=== PATIENT | male | born 1945 | race Hispanic/Latino ===

== ENCOUNTER 2017-05-27 08:52 | Inpatient (IN) | payer MEDICARE ==
[~2017-05-27] VITALS: Ht 172.7 cm; Wt 85.0 kg
[~2017-05-27 08:52] MED LIST: AMOX TR-K CLV1 EAC2; ASPIR 8181 MG PO; ASPIRIN BUFFER325 MG PO; ASPIRIN ENTERI325 MG PO; FAMOTIDINE20 MG PO; FUROSEMIDE40 MG PO; LEVAQUIN500 MG PO; MUCINEX DM ER1 EACH PO; PARICALCITOL; REQUIP0.5 MG PO; TAMSULOSIN HCL0.4 MG PO; TESSALON PERLE100 MG PO; XYZAL5 MG PO; Z.0.METOPROLOL TART2; Z.0.PRAVASTATIN SOD4 PO; Z.0.TAMSULOSIN HCL0. PO; Z.1.DOXAZOSIN MESYLA PO; ZEMPLAR2 MCG PO
[2017-05-27] MEDS ORDERED: ACETAMINOPHEN 325 MG TAB ONE (09:26)
[2017-05-27] MEDS ORDERED: SODIUM CHLORIDE 0.9% 1000ML 1,000 ML ONE (09:26)
[2017-05-27] MEDS ORDERED: SODIUM CHLORIDE 0.9% 1000ML 1,000 ML IV STA ×2 (09:26→10:51)
[2017-05-27 09:56] LABS: BASOPHILS % 0.3 % (0.0-1.0); EOSINOPHILS % 0.6 % (0.0-6.0); HEMATOCRIT 34.9 % (38.2-49.6); HEMOGLOBIN 12.1 g/dL (14.0-18.0); LYMPHOCYTES # (AUTO) 0.1 (1.0-3.2); LYMPHOCYTES % 4.2 % (18.0-39.1); MEAN CORPUSCULAR HEMOGLOBIN 32.5 pg (28-32); MEAN CORPUSCULAR HGB CONC 34.7 g/dL (31-35); MEAN CORPUSCULAR VOLUME 93.8 fL (81-99); MONOCYTES # (AUTO) 0.1 (0.2-0.8); MONOCYTES % 2.1 % (4.4-11.3); NEUTROPHILS # (AUTO) 3.1 (2.1-6.9); NEUTROPHILS % 92.2 % (38.7-80.0); PLATELET COUNT 87 x10e3/uL (140-360); RED BLOOD COUNT 3.72 x10e6/uL (4.3-5.7); RED CELL DISTRIBUTION WIDTH 12.7 % (11.7-14.4)
[2017-05-27] MEDS ORDERED: ACETAMINOPHEN 325 MG TAB PO ONE (10:00)
[2017-05-27 10:08] LABS: ALBUMIN 2.8 g/dL (3.5-5.0); ALBUMIN/GLOBULIN RATIO 0.8 (0.8-2.0); ANION GAP 17.2 mmol/L (8-16); CALCIUM 8.2 mg/dL (8.4-10.2); CREATININE, SERUM 7.27 mg/dL (0.72-1.25); POTASSIUM 3.2 mmol/L (3.5-5.1)
[2017-05-27 11:15] LABS: CREATINE KINASE MB 2.7 ng/mL (0.00-5.00)
[2017-05-27 11:17] LABS: TROPONIN I 0.359 ng/mL (0-0.300)
--- NOTE | 2017-05-27 11:30 | Diagnostic Imaging Report ---
PROCEDURE: A single AP view of the chest. COMPARISON: Portable chest 09/07/2016. INDICATIONS: COUGH, CONGESTION, FEVER FINDINGS: Lines/tubes: None. Lungs: No focal consolidation. No parenchyma mass. Bibasilar atelectasis. Pleura: There is no pleural effusion or pneumothorax. Heart and mediastinum: The heart and the mediastinum are unremarkable. Bones: No acute bony abnormality. Degenerative changes of the thoracic spine. IMPRESSION: No acute radiographic abnormality. Dictated by: Aman Billingsley M.D. on 05/27/2017 at 11:39 Electronically approved by: Aman Billingsley M.D. on 05/27/2017 at 11:39
[2017-05-27] MEDS ORDERED: SODIUM CHLORIDE 0.9% 500ML 500 ML ONE (13:11)
[2017-05-27] MEDS ORDERED: SODIUM CHLORIDE 0.9% IV STA (13:14)
[2017-05-27] MEDS ORDERED: METRONIDAZOLE 500MG/NS 100ML 100 ML IV STA (14:04)
[2017-05-27 14:19] LABS: CLARITY,URINE SL CLOUDY (CLEAR); COLOR,URINE YELLOW (YELLOW)
[2017-05-27 14:21] LABS: BACTERIA,URINE FEW /HPF
[2017-05-27 14:25] LABS: KETONES,URINE NEGATIVE (NEGATIVE); LEUKOCYTE ESTERASE ,URINE NEGATIVE (NEGATIVE); NITRITE,URINE NEGATIVE (NEGATIVE); URINE UROBILINOGEN 0.2 mg/dL (0.2 - 1)
[2017-05-27 14:26] LABS: BILIRUBIN,URINE 1+ (NEGATIVE); PROTEIN,URINE DIPSTICK 2+ (NEGATIVE); RBC,URINE 0-5 /HPF (0-5)
[2017-05-27] MEDS: SODIUM CHLORIDE 0.9% 1000ML 1,000 ML IV SCH ×2 (15:02→21:29)
[2017-05-27 16:21] VITALS: BP 86/53
[2017-05-27 17:02] VITALS: BP 86/53
[2017-05-27] MEDS ORDERED: SODIUM CHLORIDE 0.9% 50ML 50 ML ONE (17:14)
[2017-05-27] MEDS ORDERED: IOPAMIDOL 370 MG/ML 200 ML INFUS..BTL INJ ONE (17:15)
--- NOTE | 2017-05-27 17:29 | Diagnostic Imaging Report ---
PROCEDURE: CT ABDOMEN AND PELVIS WITH CONTRAST TECHNIQUE: The abdomen and pelvis were scanned utilizing a multidetector helical scanner from the diaphragm to the lesser trochanter after the IV administration of 100 cc of Isovue 370 and the oral administration of water. Coronal and sagittal multiplanar reformations were obtained. COMPARISON: [facility], MRI, MRI MRCP WO, 10/16/2013, 10:41. CT, CT ABDOMEN/PELVIS WO, 10/14/2013, 4:29. INDICATIONS: ABDOMINAL PAIN FINDINGS: LOWER THORAX: Bilateral basal mostly dependent atelectatic changes. Mild cardiomegaly. Atherosclerotic calcification of the coronary arteries. Chronic ununited fracture of the right seventh rib HEPATOBILIARY: Normal hepatic size and contour. Decreased attenuation of the liver compared to the spleen, consistent with steatosis. No focal lesions. Mild central intrahepatic biliary ductal dilation, and mild dilation of the common bile duct, which measures 9 mm at the cristofer hepatis, decreased from previous.. No radiopaque intraluminal filling defects. Cholecystectomy clips SPLEEN: 7 mm hypodense lesion in the inferior tip of the spleen, which is to small to characterize. Mild splenomegaly, measuring 13.6 cm in AP diameter PANCREAS: No focal masses or ductal dilatation. ADRENALS: No adrenal nodules. KIDNEYS/URETERS: No renal or ureteral calculi. No hydronephrosis, hydroureter, or evidence of obstruction. Stable 3-4 mm calcific density likely located in the posterior bladder lumen just past the left UVJ (series 2, image 80). Stable multiple bilateral renal and peripelvic cysts. No solid enhancing lesions. PELVIC ORGANS/BLADDER: Mild circumferential bladder wall thickening, which is partly due to under distention. The prostate is enlarged. PERITONEUM / RETROPERITONEUM: No free air or fluid. LYMPH NODES: No lymphadenopathy. VESSELS: Atherosclerotic calcification of the abdominal aorta and iliac vessels. GI TRACT: No bowel dilation or evidence of obstruction. No pericolonic inflammatory changes. Appendix is well identified and normal in caliber. BONES AND SOFT TISSUES: No aggressive lytic or sclerotic lesions. Soft tissues are unremarkable. IMPRESSION: 1. no acute abdominopelvic abnormalities. 2. Mild central intrahepatic biliary ductal dilation and mild dilation of the common bile duct, which is decreased from prior exam and likely reflects post cholecystectomy status. 3. Stable 3-4 mm calcific density likely located in the posterior bladder lumen just past the left UVJ, likely representing a bladder calculus. No ureteral calculi, hydronephrosis, or obstruction. 4. Hepatic steatosis. No focal lesions. Ld Montiel M.D. Dictated by: Ld Montiel M.D. on 05/27/2017 at 17:37 Electronically approved by: Ld Montiel M.D. on 05/27/2017 at 17:37
[2017-05-27] MEDS ORDERED: POTASSIUM CHLORIDE 20 MEQ TAB CR PO STA (18:32)
[2017-05-27 20:00] VITALS: BP 94/53
[2017-05-27] MEDS ORDERED: MIDODRINE 2.5 MG TAB PO SCH (20:00)
[2017-05-27 23:45] VITALS: BP 91/54
[2017-05-28] VITALS (7 sets, daily range): BP systolic 88–103; BP diastolic 50–56
[2017-05-28] MEDS: SODIUM CHLORIDE 0.9% 1000ML 1,000 ML IV SCH ×2 (01:31→06:04)
[2017-05-28] MEDS: ACETAMINOPHEN 325 MG TAB PO PRN ×2 (02:42→12:38)
[2017-05-28] MEDS: MIDODRINE 2.5 MG TAB PO SCH ×3 (08:41→16:33)
[2017-05-28] MEDS: METRONIDAZOLE 500 MG TAB PO SCH ×2 (14:29→21:14)
--- NOTE | 2017-05-28 15:41 | History and Physical ---
CHIEF COMPLAINT: Abdominal pain, diarrhea. HISTORY OF PRESENT ILLNESS: A 72-year-old male with end-stage renal disease on HD, who reports having significant abdominal pain and diarrhea that began about 4 days ago. Patient reports having loose watery stool but with no blood. He reports that the diarrhea has progressively been getting worse. He also reports having some nausea and vomiting and decreased oral intake. Describes abdominal pain more left-sided, kind of an aching sensation. CT imaging was negative for any acute findings. Patient was seen and evaluated at bedside on the medical floor, currently doing well with no other issues. He still reports have 2 loose bowel movements today but not witnessed by the nursing staff. REVIEW OF SYSTEMS PERTINENT POSITIVE: Diarrhea, abdominal pain, nausea, vomiting, decreased oral intake. PERTINENT NEGATIVE: Denies chest pain, palpitations, dysuria, hematuria, frequency, urgency, lightheadedness, dizziness, headache, shortness of breath, or any other complaints. REST OF 14-POINT REVIEW OF SYSTEMS: Have been reviewed with the patient and are negative. ALLERGIES: NO KNOWN DRUG ALLERGIES. HOME MEDICATIONS 1. Aspirin 325 mg daily. 2. Lasix 80 mg daily. 3. He also takes pravastatin 40 mg daily. 4. Ropinirole 0.5 mg daily. 5. Tamsulosin 0.4 mg every day. PAST MEDICAL HISTORY: BPH, end-stage renal disease on HD, hyperlipidemia. FAMILY HISTORY: Hypertension, diabetes. SURGICAL HISTORY: Reports none. SOCIAL HISTORY: No drugs, no alcohol, does not smoke. VITAL SIGNS: Temperature is 97.4, pulse 69, respiratory rate is 17, his blood pressure is 92/54. He has chronic hypotension, and his pulse ox is 91% on room air. LAB FINDINGS: Show white count of 3.3, hemoglobin 12, hematocrit is 35 and platelets of 87. Sodium 137, potassium 3.2, chloride 96, bicarb 27, anion gap of 17, BUN is 34, creatinine is 7.2, glucose 101, lactic acid was 10 and normal, calcium 8.2. Total bilirubin was 1.3. LFT were normal. Troponin was slightly elevated 0.359. Denies any chest pain. Total protein 6.1, albumin is 2.8. Urinalysis was cloudy in nature. Influenza negative. C. diff toxin was negative. MICROBIOLOGY: Blood and urine cultures no growth to date. IMAGING STUDIES: Chest x-ray was negative. CT abdomen and pelvis found to have no acute abdominopelvic abnormality. He does have a 3 to 4 mm calculus seen in the UV junction, but there is no obstruction at all seen. He does have hepatic steatosis. PHYSICAL EXAMINATION GENERAL: Not in acute distress. Alert, oriented x3, cooperative on exam. HEENT: Head: Normocephalic, atraumatic. Eyes: Pupils equally round and reactive to light bilaterally. Extraocular movements intact bilaterally. Neck was supple with good range of motion. Throat: No evidence of any erythema or exudates in the posterior pharynx. He has poor dentition. PULMONARY: Clear to auscultation bilaterally. No wheezing, no rales, no rhonchi, no crackles appreciated. CARDIOVASCULAR: Positive S1/S2. No murmurs, rubs or gallops appreciated. ABDOMEN: Soft, nondistended, nontender to palpation. Bowel sounds present. MUSCULOSKELETAL: Strength is 5/5 throughout. No evidence of any musculoskeletal deficit on exam. SKIN: Intact, warm to touch. Good cap refill. PSYCHIATRIC: Normal affect and mood. EXTREMITIES: No edema. Good range of motion throughout. ASSESSMENT AND PLAN 1. Diarrhea/abdominal pain/dehydration: C. diff toxin negative, likely has viral gastroenteritis, loperamide or Flagyl and monitor closely. Told the nurse to follow up on his diarrhea if there is any more evidence of it. Continue with IV fluids and pain control. 2. Mild elevation of troponin, likely due to underlying ESRD on HD: Trend troponins x3. He denies any chest pain. EKG shows no acute findings. 3. Hypokalemia: Replace. 4. Chronic hypotension on dialysis: Continue with oral midodrine. 5. Chronic thrombocytopenia, likely due to underlying liver cirrhosis. 6. End-stage renal disease on hemodialysis: Nephrology consulted. Will get dialysis today. 7. Prophylaxis will be heparin. 8. Fluid, electrolytes, nutrients. Hold IV fluids. Encourage oral hydration and renal diet. 9. Disposition: Inpatient, Nephrology consulted. 10. Discharge planning: Patient will likely be here more than 2 midnights, and we will continue to monitor very closely. Patient reports he is very weak and has not eaten much. Job#: [id number] EV
[2017-05-28] MEDS: HEPARIN SOD (PORCINE) 5,000 UNIT/ML VIAL SC SCH (16:33)
[2017-05-28] MEDS ORDERED: SODIUM CHLORIDE 0.9% 1000ML 1,000 ML ONE (16:38)
--- NOTE | 2017-05-28 17:40 | Consultation ---
DATE OF CONSULTATION: May 28, 2017 REQUESTING PHYSICIAN: Dr. Paige. REASON FOR CONSULTATION: Elevated troponin. HISTORY OF PRESENT ILLNESS: Mr. Rosario is a 72-year-old gentleman with past medical history as listed below, who presented with complaints of nausea and diarrhea. He also states that he had some abdominal discomfort. Has end-stage renal disease and is on dialysis. He is currently getting dialysis. He was noted to have elevated troponin so I was consulted. Denies any chest pain or shortness of breath. He reportedly had an IL in 2001 and had a stent placed at that time. He states he feels fine now. REVIEW OF SYSTEMS: CONSTITUTIONAL: Has some fatigue and weakness. HEENT: No headache, blurring of vision, seizures or syncope. CARDIOVASCULAR: No chest pain, dyspnea, orthopnea, PND. RESPIRATORY: No cough, fever or expectoration. GI: Has abdominal pain, vomiting and diarrhea. : No dysuria, frequency or incontinence. ALLERGIES: NO KNOWN DRUG ALLERGIES. MEDICATIONS: See list. PAST MEDICAL HISTORY: History of IL in 2001 and apparently had a stent placed at that time. History of end-stage renal disease on hemodialysis. History of hypertension. SOCIAL HISTORY: Does not smoke or drink. FAMILY HISTORY: Noncontributory. PHYSICAL EXAMINATION: VITALS: Heart rate 69, blood pressure 92/54. Respiratory rate 18. Temperature 97.4. GENERAL: A moderately built and nourished gentleman, alert, oriented not in any obvious distress. HEENT: Atraumatic. NECK: No JVD, bruit, thyromegaly or lymphadenopathy. CHEST: Decreased air entry at the bases. No adventitious sounds appreciated. ABDOMEN: Soft and nontender. CARDIOVASCULAR: First and second heart sounds heard. No murmurs, rubs or gallops appreciated. EXTREMITIES: No edema. LABORATORY DATA: WBC 3.3. Hemoglobin 12.1. Hematocrit 34.9. Platelets are 87,000. Sodium 137, potassium 3.2, chloride 96. Bicarb is 27. BUN is 34. Creatinine 7.2. Glucose is 101. BNP is 240. Troponin is 0.359 and 1.32. EKG shows sinus rhythm at 81 beats per minute. Normal axis. Normal intervals. Q waves V1-V3. Nonspecific ST-T changes. IMPRESSION 1. Gastroenteritis. 2. Elevated troponins -- Non-ST elevation myocardial infarction. 3. End-stage renal disease on hemodialysis. 4. History of hypertension, currently on hypotensive side. 5. Thrombocytopenia. 6. Leukopenia. 7. Hypokalemia. PLAN: 1. Patient's troponins are elevated. However, he has no chest pain or shortness of breath. Get echocardiogram to assess LV function valvular function. 2. Will treat with aspirin, statin, heparin. Since blood pressure is on the lower side, will hold off on beta blockers. 3. Get echocardiogram to assess LV function and valvular function. Discussed with patient about further cardiac workup including cardiac catheterization and probable PCI. The patient does not want any invasive procedures and wants to be treated medically. I discussed my impression and plan of management with the patient and the family. They understand. As always I appreciate and thank you very much for your referrals. Job#: [id number] SAMINA
--- NOTE | 2017-05-28 17:41 | Consultation ---
DATE OF CONSULTATION: May 28, 2017 RENAL CONSULTATION HISTORY OF PRESENT ILLNESS: Patient well known to me, a 72-year-old gentleman with underlying history of end-stage renal disease. Renal consulted for management of kidney failure. He has admitted with apparent chest pain. Cardiology has already been consulted. Has prior history of [place], coronary artery disease status post PCI, history of hypertension, history of secondary hyperparathyroidism. Electrocardiogram shows no acute ST-T wave changes. He is currently awake, alert, scheduled for dialysis, in no apparent respiratory distress. Labs show sodium 137, potassium 3.2, creatinine 7.27. Hemoglobin 12.1. Platelet 87. PHYSICAL EXAMINATION: VITALS: Blood pressure is 92/54, pulse rate 69, afebrile. HEAD AND NECK: Cornea clear. Oral mucosa dry. LUNGS: Bibasilar rales. HEART: S1/S2 audible. ABDOMEN: Otherwise soft, nontender. LOWER EXTREMITY EXAMINATION: No edema. ALLERGIES: NO APPARENT DRUG ALLERGIES. CURRENT MEDICATIONS: Loratadine, midodrine, Flomax, acetaminophen, loperamide, aspirin, metronidazole. CURRENT REVIEW OF SYSTEMS: Positive for diarrhea, nausea. Denies any vomiting. Denies any hematemesis, melena. Denies abdominal pain, fever, chills. IMPRESSION: End-stage renal disease. Appears dehydrated with dry skin, dry mucosa, poor skin turgor. Rales on examination of the lungs, probably atelectasis of the lung bases. Hypokalemic, has diarrhea workup ordered. Seen by Cardiology. Autonomic dysfunction with relatively low blood pressure on midodrine. I will be careful as far as ultrafiltration is concerned. Will only go for about 0 to 1 liter as tolerated. Medications adjusted. Abdominal examination benign. ESTATE ATTORNEY exam intact. Please see orders. Job#: [id number] EV
[2017-05-28] MEDS ORDERED: BENZONATATE 100 MG CAP PO PRN (19:45)
[2017-05-28] MEDS: ATORVASTATIN 20 MG TAB PO SCH (21:14)
[2017-05-28] MEDS: LORATADINE 10 MG TAB PO SCH (21:14)
[2017-05-28] MEDS: HYDROCODONE/CHLORPHENIRAMINE 5 ML LIQCR PO PRN (21:14)
[2017-05-29] VITALS (8 sets, daily range): BP systolic 103–130; BP diastolic 53–74
[2017-05-29] MEDS: METRONIDAZOLE 500 MG TAB PO SCH ×2 (06:21→13:02)
[2017-05-29 07:26] LABS: BASOPHILS % 0.4 % (0.0-1.0); EOSINOPHILS % 0.6 % (0.0-6.0); HEMOGLOBIN 10.9 g/dL (14.0-18.0); LYMPHOCYTES # (AUTO) 0.7 (1.0-3.2); LYMPHOCYTES % 10.5 % (18.0-39.1); MEAN CORPUSCULAR HEMOGLOBIN 32.4 pg (28-32); MEAN CORPUSCULAR HGB CONC 34.1 g/dL (31-35); MEAN CORPUSCULAR VOLUME 95.2 fL (81-99); MONOCYTES # (AUTO) 0.6 (0.2-0.8); NEUTROPHILS # (AUTO) 5.6 (2.1-6.9); NEUTROPHILS % 79.1 % (38.7-80.0); PLATELET COUNT 102 x10e3/uL (140-360); RED BLOOD COUNT 3.36 x10e6/uL (4.3-5.7)
[2017-05-29 07:52] LABS: ANION GAP 14.8 mmol/L (8-16); CALCIUM 7.8 mg/dL (8.4-10.2); CREATININE, SERUM 5.95 mg/dL (0.72-1.25); POTASSIUM 3.8 mmol/L (3.5-5.1)
[2017-05-29 07:59] LABS: TROPONIN I 0.759 ng/mL (0-0.300)
[2017-05-29] MEDS: ASPIRIN 81 MG CHEW TAB PO SCH (08:50)
[2017-05-29] MEDS: ACETAMINOPHEN 325 MG TAB PO PRN ×2 (08:50→15:41)
[2017-05-29] MEDS: TAMSULOSIN HCL 0.4 MG CAP PO SCH (08:50)
[2017-05-29] MEDS: MIDODRINE 2.5 MG TAB PO SCH ×3 (08:50→16:43)
[2017-05-29] MEDS: HEPARIN SOD (PORCINE) 5,000 UNIT/ML VIAL SC SCH ×2 (08:51→21:00)
[2017-05-29] MEDS ORDERED: ASPIRIN 325 MG TAB EC PO SCH (09:00)
[2017-05-29] MEDS: PIPER-TAZ 3.375 GM 100 ML IV SCH (16:58)
[2017-05-29] MEDS: LORATADINE 10 MG TAB PO SCH (20:29)
[2017-05-29] MEDS: ATORVASTATIN 20 MG TAB PO SCH (20:29)
[2017-05-29] MEDS ORDERED: PIPER-TAZ 3.375 GM 100 ML IV SCH (21:00)
[2017-05-29] MEDS: HYDROCODONE/CHLORPHENIRAMINE 5 ML LIQCR PO PRN (23:00)
[2017-05-29] MEDS: LOPERAMIDE HCL 2 MG CAP PO PRN (23:59)
[2017-05-30] VITALS (7 sets, daily range): BP systolic 104–127; BP diastolic 57–61
[2017-05-30] MEDS: ACETAMINOPHEN 325 MG TAB PO PRN ×3 (00:12→20:35)
[2017-05-30] MEDS: PIPER-TAZ 3.375 GM 100 ML IV SCH ×2 (05:41→17:10)
[2017-05-30] MEDS: LOPERAMIDE HCL 2 MG CAP PO PRN (05:42)
[2017-05-30 08:25] LABS: BASOPHILS % 0.3 % (0.0-1.0); EOSINOPHILS # (AUTO) 0.2 (0.0-0.4); EOSINOPHILS % 2.2 % (0.0-6.0); HEMATOCRIT 30.6 % (38.2-49.6); HEMOGLOBIN 10.2 g/dL (14.0-18.0); LYMPHOCYTES # (AUTO) 0.9 (1.0-3.2); MEAN CORPUSCULAR HEMOGLOBIN 31.7 pg (28-32); MEAN CORPUSCULAR HGB CONC 33.3 g/dL (31-35); MONOCYTES # (AUTO) 0.7 (0.2-0.8); MONOCYTES % 9.6 % (4.4-11.3); NEUTROPHILS # (AUTO) 5.8 (2.1-6.9); NEUTROPHILS % 75.2 % (38.7-80.0); PLATELET COUNT 111 x10e3/uL (140-360); RED BLOOD COUNT 3.22 x10e6/uL (4.3-5.7); RED CELL DISTRIBUTION WIDTH 12.7 % (11.7-14.4)
[2017-05-30 08:50] LABS: ANION GAP 13.8 mmol/L (8-16); CALCIUM 7.4 mg/dL (8.4-10.2); CREATININE, SERUM 7.69 mg/dL (0.72-1.25); POTASSIUM 3.8 mmol/L (3.5-5.1)
[2017-05-30] MEDS: ASPIRIN 81 MG CHEW TAB PO SCH (09:30)
[2017-05-30] MEDS: HEPARIN SOD (PORCINE) 5,000 UNIT/ML VIAL SC SCH ×2 (09:30→21:37)
[2017-05-30] MEDS: MIDODRINE 2.5 MG TAB PO SCH ×3 (09:30→17:10)
[2017-05-30] MEDS: TAMSULOSIN HCL 0.4 MG CAP PO SCH (09:30)
[2017-05-30] MEDS: HYDROCODONE/CHLORPHENIRAMINE 5 ML LIQCR PO PRN ×2 (12:36→20:35)
[2017-05-30] MEDS: LORATADINE 10 MG TAB PO SCH (20:35)
[2017-05-30] MEDS: ATORVASTATIN 20 MG TAB PO SCH (20:35)
[2017-05-31] VITALS: BP 108/57
[2017-05-31 04:00] VITALS: BP 113/58
[2017-05-31] MEDS: PIPER-TAZ 3.375 GM 100 ML IV SCH ×2 (05:15→18:14)
[2017-05-31 08:00] VITALS: BP 114/55
[2017-05-31] MEDS: MIDODRINE 2.5 MG TAB PO SCH ×3 (08:00→17:23)
[2017-05-31] MEDS: TAMSULOSIN HCL 0.4 MG CAP PO SCH (09:00)
[2017-05-31] MEDS: ASPIRIN 81 MG CHEW TAB PO SCH (09:00)
[2017-05-31] MEDS: HEPARIN SOD (PORCINE) 5,000 UNIT/ML VIAL SC SCH ×2 (09:00→21:53)
[2017-05-31 12:00] VITALS: BP 129/68
[2017-05-31] MEDS ORDERED: SODIUM CHLORIDE 0.9% 1000ML 2,000 ML ONE (13:27)
[2017-05-31 16:00] VITALS: BP 107/63
[2017-05-31] MEDS: LORATADINE 10 MG TAB PO SCH (21:51)
[2017-05-31] MEDS: ATORVASTATIN 20 MG TAB PO SCH (21:51)
[2017-06-01] MEDS: PIPER-TAZ 3.375 GM 100 ML IV SCH (05:00)
[2017-06-01 08:00] VITALS: BP 113/61
[2017-06-01] MEDS ORDERED: TESSALON PERLE100 MG PO (08:10)
[2017-06-01] MEDS ORDERED: Hydrocodone/Chlorpheniramine PO (08:10)
[2017-06-01] MEDS ORDERED: LISINOPRIL10 MG PO (08:11)
[2017-06-01] MEDS ORDERED: LEVAQUIN500 MG PO (08:19)
[2017-06-01] MEDS ORDERED: FLAGYL500 MG PO (08:38)
[2017-06-01] MEDS: MIDODRINE 2.5 MG TAB PO SCH (08:50)
[2017-06-01] MEDS: TAMSULOSIN HCL 0.4 MG CAP PO SCH (08:50)
[2017-06-01] MEDS: ASPIRIN 81 MG CHEW TAB PO SCH (08:50)
[2017-06-01] MEDS: HEPARIN SOD (PORCINE) 5,000 UNIT/ML VIAL SC SCH (08:52)
--- NOTE | 2017-06-01 08:57 | Discharge Summary ---
PRINCIPAL DIAGNOSES 1. Ppv-NF-lbptfum elevation myocardial infarction. 2. Bladder calculus. 3. Fever of unknown origin. 4. BPH. 5. End-stage renal disease, on hemodialysis. SECONDARY DIAGNOSIS: End-stage renal disease, on hemodialysis. CHIEF COMPLAINT: Abdominal pain and diarrhea. HISTORY OF PRESENT ILLNESS: This is a 72-year-old man with abdominal pain and diarrhea. For further details, please refer to the H and P. HOSPITAL COURSE: Patient was found to have acute gastroenteritis and will go home with Flagyl and Levaquin. Also, had xus-BG-gmribun elevation VT treated with medication regimen. Had bladder calculus and end-stage renal disease, received hemodialysis. BPH was treated with medications. The patient is doing better. Has intermittent periods of low-grade fever. Will transition him home with Flagyl and Levaquin. FOLLOWUP 1. Primary care doctor in 1 week. 2. [employer] in 2 weeks. 3. Nephrology as directed. CONDITION ON DISCHARGE: Stable and improved. DISCHARGE LOCATION: Home. DAYTON FRANKLIN MD Job#: [id number] BATSHEVA
--- NOTE | 2017-06-01 08:59 | Discharge Summary ---
ADDENDUM The patient had echocardiogram with left ventricular ejection fraction of 63% and moderate LVH. Had mild LV diastolic dysfunction and moderate tricuspid regurgitation. DISCHARGE MEDICATIONS: Does include an XUAN inhibitor. DAYTON FRANKLIN MD Job#: [id number] [place]
[2017-06-01] MEDS ORDERED: PIPER-TAZ 3.375 GM 50 ML IV SCH (17:00)
== END 2017-06-01 11:40 | disposition home or self-care (01) | DRG 391 ==
LOC: ER 08:52 → ERHOLD 14:43 → IMCU 15:51 → OBSVTOIN 05-29 14:27 → MED/SURG2 05-29 17:51
PROVIDERS: ADMIT Internal Medicine; ATTEND Internal Medicine
PROC: 5A1D70Z Performance of Urinary Filtration, Intermittent, Less than 6 Hours Per Day (ICD-10-PCS; principal; 2017-05-29)
PROC: 5A1D70Z Performance of Urinary Filtration, Intermittent, Less than 6 Hours Per Day (ICD-10-PCS; 2017-05-31)
DX: A08.4 Viral intestinal infection, unspecified (principal); I21.4 Non-ST elevation (NSTEMI) myocardial infarction; I13.2 Hypertensive heart and chronic kidney disease with heart failure and with stage 5 chronic kidney disease, or end stage renal disease; I95.89 Other hypotension; D69.6 Thrombocytopenia, unspecified; N18.6 End stage renal disease; K74.60 Unspecified cirrhosis of liver; I07.1 Rheumatic tricuspid insufficiency; N25.81 Secondary hyperparathyroidism of renal origin; I25.10 Atherosclerotic heart disease of native coronary artery without angina pectoris; Z95.5 Presence of coronary angioplasty implant and graft; I25.2 Old myocardial infarction; I50.9 Heart failure, unspecified; Z99.2 Dependence on renal dialysis; E86.0 Dehydration; E78.5 Hyperlipidemia, unspecified; E87.6 Hypokalemia; D72.819 Decreased white blood cell count, unspecified; N40.0 Benign prostatic hyperplasia without lower urinary tract symptoms; N21.0 Calculus in bladder; Z79.82 Long term (current) use of aspirin
CPT/HCPCS: 36415; 71010; 74177; 80048; 80053; 81001; 82550; 82553; 83605; 83880; 84484; 85025; 86704; 86706; 87040; 87086; 87340; 87400; 87493; 93005; 93306; 99284; G0378; J1644; J2543; J7030; J7040; Q9967

== ENCOUNTER 2017-06-16 10:56 | Inpatient (IN) | payer MEDICARE ==
[~2017-06-16] VITALS: Ht 172.7 cm; Wt 83.0 kg
[~2017-06-16 10:56] MED LIST changes: +FLAGYL500 MG PO; +Hydrocodone/Chlorpheniramine PO; +LISINOPRIL10 MG PO
[2017-06-16 12:14] LABS: BILIRUBIN,URINE NEGATIVE (NEGATIVE); KETONES,URINE NEGATIVE (NEGATIVE); LEUKOCYTE ESTERASE ,URINE NEGATIVE (NEGATIVE); NITRITE,URINE NEGATIVE (NEGATIVE); URINE UROBILINOGEN 0.2 mg/dL (0.2 - 1)
[2017-06-16 12:15] LABS: BASOPHILS # (AUTO) 0.1 (0.0-0.1); EOSINOPHILS # (AUTO) 0.2 (0.0-0.4); HEMATOCRIT 22.3 % (38.2-49.6); LYMPHOCYTES # (AUTO) 1.1 (1.0-3.2); LYMPHOCYTES % 22.2 % (18.0-39.1); MEAN CORPUSCULAR HEMOGLOBIN 32.1 pg (28-32); MEAN CORPUSCULAR HGB CONC 31.4 g/dL (31-35); MEAN CORPUSCULAR VOLUME 102.3 fL (81-99); MONOCYTES # (AUTO) 0.4 (0.2-0.8); NEUTROPHILS # (AUTO) 3.3 (2.1-6.9); NEUTROPHILS % 64.8 % (38.7-80.0); PLATELET COUNT 199 x10e3/uL (140-360); RED BLOOD COUNT 2.18 x10e6/uL (4.3-5.7)
[2017-06-16 12:20] LABS: CLARITY,URINE SL CLOUDY (CLEAR); COLOR,URINE YELLOW (YELLOW); PROTEIN,URINE DIPSTICK 1+ (NEGATIVE)
--- NOTE | 2017-06-16 12:20 | Diagnostic Imaging Report ---
EXAMINATION: CHEST SINGLE (PORTABLE) INDICATION: \S\sob \[id number] \S\1115 \S\Y COMPARISON: Chest radiograph 09/07/2016 FINDINGS: AP view TUBES and LINES: None. LUNGS: Lungs are well inflated. Lungs are clear. There is no evidence of pneumonia or pulmonary edema. PLEURA: Persistent right basilar pleural thickening/scarring with adjacent prior rib fractures. No pleural effusion or pneumothorax. HEART AND MEDIASTINUM: The cardiomediastinal silhouette is unremarkable. BONES AND SOFT TISSUES: No acute osseous lesion. Soft tissues are unremarkable. UPPER ABDOMEN: No free air under the diaphragm. IMPRESSION: 1. Persistent right basilar pleural thickening/scarring with adjacent prior rib fractures. 2. No focal consolidations. Signed by: DR. Cristopher Lo MD on 06/16/2017 12:16 PM
[2017-06-16 12:25] LABS: ALBUMIN 2.7 g/dL (3.5-5.0); ALBUMIN/GLOBULIN RATIO 0.8 (0.8-2.0); ANION GAP 11.7 mmol/L (8-16); CALCIUM 8.1 mg/dL (8.4-10.2); CREATININE, SERUM 6.97 mg/dL (0.72-1.25); POTASSIUM 3.7 mmol/L (3.5-5.1)
[2017-06-16 12:31] LABS: CREATINE KINASE MB 1.7 ng/mL (0.00-5.00); TROPONIN I 0.014 ng/mL (0-0.300)
[2017-06-16 12:43] LABS: RBC,URINE 0-5 /HPF (0-5)
[2017-06-16] MEDS ORDERED: PANTOPRAZOLE 40 MG 10ML VIAL IV STA (12:59)
[2017-06-16] MEDS ORDERED: PANTOPRAZOLE INJ 40 MG in SODIUM CHLORIDE 0.9% 50ML 50 ML IV STA (12:59)
[2017-06-16] MEDS ORDERED: SODIUM CHLORIDE 0.9% 250ML 250 ML IV ONE (13:00)
[2017-06-16] MEDS ORDERED: PANTOPRAZOLE INJ 80 MG in SODIUM CHLORIDE 0.9% 100 ML IV SCH (13:15)
[2017-06-16] MEDS: PANTOPRAZOLE INJ 40 MG in SODIUM CHLORIDE 0.9% 50ML 50 ML IV SCH ×2 (14:42→14:59)
[2017-06-16] MEDS: SODIUM CHLORIDE FLUSH 10 ML SYR INJ PRN ×3 (14:42→14:59)
[2017-06-16 14:45] LABS: INR 0.94
[2017-06-16 14:46] LABS: PARTIAL THROMBOPLASTIN TIME 28.1 seconds (23.8-35.5)
--- NOTE | 2017-06-16 15:39 | Consultation ---
DATE OF CONSULTATION: June 16, 2017 HISTORY OF PRESENT ILLNESS: The patient is seen in the ER. He is well known to me. He is a 72-year-old gentleman with underlying history of end-stage renal disease, history of anemia, thrombocytopenia, recent bronchopneumonia, who presented with anemia, strongly hem positive and hemoglobin down to 7. He is typed and cross matched for 2 units. He is scheduled for dialysis today. He has prior history of pancreatitis and type-2 diabetes. Had a negative MRCP. History of secondary hyperparathyroidism, anemia of chronic kidney disease and hypertension. ALLERGIES: NO APPARENT DRUG ALLERGIES. CURRENT MEDICATIONS: Pantoprazole IV. LABORATORY TESTS: Hemoglobin 7, white count 7.1 with platelets of 199. Chemistry shows sodium 133, potassium 3.7, creatinine 6.9. BNP 521. SOCIAL HISTORY: Does not smoke or drink. FAMILY HISTORY: Significant for hypertension. PHYSICAL EXAMINATION GENERAL: Awake, alert, lying supine in no apparent distress. VITALS: Blood pressure of 99/54. Pulse rate 83. Afebrile. HEAD AND NECK: Corneas clear. Oral mucosa dry. Neck veins flat. LUNGS: Occasional rales in right and left lower zones. HEART: S1, S2 audible. ABDOMEN: Soft, nontender. LOWER EXTREMITY EXAMINATION: No edema. IMPRESSION AND PLAN: Gastrointestinal bleed. To be seen by GI. To get 2 units of packed RBCs on dialysis. Dialysis nurse called, awaiting arrival. Will not use any heparin. Volume status appears stable. He has got chronic lung changes. Relatively low blood pressure. Will hold off on all blood pressure medications. Please see orders. Job#: [id number]
[2017-06-16] MEDS ORDERED: BENZONATATE 100 MG CAP PO PRN (16:30)
[2017-06-16] MEDS ORDERED: HYDROCODONE/CHLORPHENIRAMINE 5 ML LIQCR PO PRN (16:30)
--- NOTE | 2017-06-16 16:56 | History and Physical ---
CHIEF COMPLAINT: Low blood pressure and black stool. HISTORY OF PRESENT ILLNESS: This is a 72-year-old man recently discharged with Non- ST elevation VT, now developing blood pressure of 84/40 with dizziness and black stool, which is why he came to the hospital. He denies any abdominal pain. Denies any chest pain. PAST MEDICAL HISTORY: Nwz-QS-lzpszvkqb VT, bladder calculus, fever of unknown origin, BPH, end-stage renal disease on hemodialysis, hyperlipidemia. PAST SURGICAL HISTORY: Left arm fistula. FAMILY HISTORY: Hypertension and diabetes in the family. ALLERGIES: PER ELECTRONIC MEDICAL RECORDS. SOCIAL HISTORY: The patient denies any illicits. MEDICATIONS: Per electronic medical records. REVIEW OF SYSTEMS: Denies any chest pain or abdominal pain. PHYSICAL EXAMINATION VITAL SIGNS: Reviewed on admission. The patient's blood pressure was 99/54, now it is 115/66. GENERAL APPEARANCE: A tired-appearing man resting in the bed. HEENT: Anicteric. Pupils responsive to light. No oral lesions. CARDIOVASCULAR: Normal S1 and S2. Regular rate and rhythm. No murmurs audible. ABDOMEN: Soft and nontender. Nondistended. EXTREMITIES: There is no edema or calf tenderness. Some bruits are audible. PSYCHIATRIC: Normal affect. NEUROLOGIC: Alert and oriented x3. Moving all extremities. ASSESSMENT AND PLAN: This is a 72-year-old man. 1. Hypotension. Rehydrated. Blood pressure has improved. Will follow up cultures. 2. Dizziness, related to hypotension. 3. Melena/moderate to severe macrocytic anemia. Will get anemia panel and get blood transfusion. Will continue IV proton pump inhibitor. Receiving IV fluids and GI has been consulted. Will hold aspirin and another other platelet agent or blood thinners. 4. End-stage renal disease on hemodialysis. Nephrology consultation. 5. Hyperlipidemia. Continue statin. 6. Coronary artery disease. Continue statin. Hold the aspirin. 7. Prophylaxis. Will use SCDs and proton pump inhibitor. DISPOSITION: Follow GI recommendation. Continue to monitor blood pressure. Job#: [id number]
--- NOTE | 2017-06-16 16:56 | Consultation ---
DATE OF CONSULTATION: June 16, 2017 GASTROENTEROLOGY CONSULTATION ADMITTING PHYSICIAN: Ephraim Newton MD. REASON FOR CONSULT: Three-point drop in hemoglobin with recent melena. HISTORY OF PRESENTING ILLNESS: A 72-year-old Lebanese-speaking male. I derived the history through a generation technician. He went for dialysis today. In the dialysis unit, he was noted to be quite hypotensive with a systolic blood pressure in 90s and he also complained about some associated weakness and lightheadedness. Blood work was done that showed a hemoglobin of 7.0. About a month ago, his hemoglobin was 10.7. Prior to that, his hemoglobin was around 12. On further questioning, patient stated that for the last few days he noticed that his stools were a dark color. He is on aspirin. He does not take any other qvfu-kuy-qasoeeu NSAIDs. No prior history of peptic ulcer disease. Denies any associated abdominal pain. He has had a colonoscopy approximately 4 to 5 years ago. As per patient, colonoscopy was reported normal. He has no family history of any colon cancer. Patient never had any upper endoscopy. He has no chronic liver disorder. No history of any coagulopathy or any bleeding disorder. REVIEW OF SYSTEMS: A 12-point system reviewed. Positive pertinent symptoms as per HPI. PAST MEDICAL HISTORY: Hypertension, end-stage renal disease on hemodialysis 3 times a week, benign prostatic hypertrophy, seasonal allergies, prior history of pancreatitis. PAST SURGICAL HISTORY: Left arm AV graft, colonoscopy. FAMILY HISTORY: Noncontributory. SOCIAL HISTORY: No history of smoking, alcohol or any illicit drug use. ALLERGIES: NONE. HOME MEDICATION: Aspirin, benzonatate, furosemide 40 mg daily, levocetirizine, lisinopril, pravastatin, ropinirole, tamsulosin. Patient was treated with some antibiotic, levofloxacin and metronidazole, recently. PHYSICAL EXAMINATION VITAL SIGNS: Temperature 97.5, pulse 83, respiration 16, blood pressure varying from 99/54 to 115/66, oxygen saturation 97% on room air. GENERAL: Not in any acute distress. HEENT: Moist mucous membrane. Anicteric sclerae. Gross pallor present. CVS: S1/S2 regular with a 2/6 flow murmur. LUNGS: Bilaterally grossly clear. ABDOMEN: Soft, nondistended, nontender. No palpable mass. No hernia. Positive bowel sounds. EXTREMITIES: Warm. No leg edema. AV graft in the left upper arm. LAB: WBC 5.0, hemoglobin 7, hematocrit 22.3, MCV 102.3, platelet count 119. His hemoglobin was 10.2 on May 30, 2017. Prior to that, hemoglobin was recorded 12.1 on May 27, 2017. Sodium 133, potassium 3.7, chloride 95, bicarb 30, BUN 33, creatinine 6.97, glucose 101. Liver test normal. PT 13.0, INR 0.94. Urine negative. Chest x-ray: (1) Persistent right basilar pleural thickening/scarring with adjacent prior rib fracture. (2) No focal consolidation. IMPRESSION: Symptomatic anemia in the background of melena, almost 3-point drop in hemoglobin in about a week. This is definitely concerning for upper GI bleeding with significant blood loss. I do not think patient is having any active GI bleeding at this time. PLAN: Clear-liquid diet. Change IV Protonix infusion to IV b.i.d. No NSAIDs. Monitor his stool. Monitor hemoglobin, transfuse as necessary. Do not transfuse blood above hemoglobin 7. Will keep him n.p.o. past midnight. Upper endoscopy tomorrow. If upper endoscopy is negative, then patient will need a colonoscopy, which can be done day after tomorrow. I thank Dr. Newton for allowing me to participate in the care of this patient. Job#: [id number] REBECCA
[2017-06-16] MEDS: PANTOPRAZOLE 40 MG 10ML VIAL IV SCH (17:00)
[2017-06-16] MEDS ORDERED: SODIUM CHLORIDE 0.9% 1000ML 2,000 ML ONE (17:05)
[2017-06-16] MEDS ORDERED: ALBUMIN HUMAN 50 ML IV PRN (17:15)
[2017-06-16] MEDS ORDERED: MANNITOL 25% 12.5GM/50 ML VIAL IV PRN (17:15)
[2017-06-16] MEDS ORDERED: SODIUM CHLORIDE 0.9% 1000ML 1,000 ML IV PRN (17:15)
[2017-06-16] MEDS ORDERED: HEPARIN SOD (PORCINE) 1000 UNIT/ML SDV IV PRN (17:15)
[2017-06-16 17:16] VITALS: BP 115/67
[2017-06-16 17:35] VITALS: BP 115/67
[2017-06-16 17:38] VITALS: BP 115/67
[2017-06-16] MEDS ORDERED: SODIUM CHLORIDE 0.9% 250ML 250 ML ONE (18:31)
[2017-06-16 20:00] VITALS: BP 93/56
[2017-06-16 20:22] LABS: CREATINE KINASE MB 1.5 ng/mL (0.00-5.00); TROPONIN I 0.013 ng/mL (0-0.300)
[2017-06-16] MEDS: LORATADINE 10 MG TAB PO SCH (20:36)
[2017-06-16] MEDS: TAMSULOSIN HCL 0.4 MG CAP PO SCH (23:30)
[2017-06-17] VITALS (8 sets, daily range): BP systolic 90–147; BP diastolic 51–57
[2017-06-17 01:28] LABS: HEMOGLOBIN 7.6 g/dL (14.0-18.0)
[2017-06-17 01:29] LABS: HEMATOCRIT 22.7 % (38.2-49.6)
[2017-06-17 01:43] LABS: CREATINE KINASE MB 1.5 ng/mL (0.00-5.00); TROPONIN I 0.005 ng/mL (0-0.300)
[2017-06-17 06:29] LABS: BASOPHILS # (AUTO) 0.1 (0.0-0.1); BASOPHILS % 1.3 % (0.0-1.0); EOSINOPHILS # (AUTO) 0.3 (0.0-0.4); EOSINOPHILS % 6.2 % (0.0-6.0); LYMPHOCYTES % 21.1 % (18.0-39.1); MEAN CORPUSCULAR HEMOGLOBIN 31.7 pg (28-32); MEAN CORPUSCULAR HGB CONC 32.4 g/dL (31-35); MONOCYTES # (AUTO) 0.5 (0.2-0.8); MONOCYTES % 9.8 % (4.4-11.3); NEUTROPHILS # (AUTO) 2.9 (2.1-6.9); NEUTROPHILS % 60.7 % (38.7-80.0); PLATELET COUNT 169 x10e3/uL (140-360); RED BLOOD COUNT 2.24 x10e6/uL (4.3-5.7); RED CELL DISTRIBUTION WIDTH 16.1 % (11.7-14.4)
[2017-06-17 06:34] LABS: HEMATOCRIT 21.9 % (38.2-49.6); HEMOGLOBIN 7.1 g/dL (14.0-18.0); MEAN CORPUSCULAR VOLUME 97.8 fL (81-99)
[2017-06-17 06:47] LABS: ANION GAP 11.6 mmol/L (8-16); CALCIUM 7.8 mg/dL (8.4-10.2); CREATININE, SERUM 4.49 mg/dL (0.72-1.25); POTASSIUM 4.6 mmol/L (3.5-5.1)
[2017-06-17] MEDS: PANTOPRAZOLE 40 MG 10ML VIAL IV SCH ×2 (07:27→16:06)
[2017-06-17] MEDS ORDERED: EPINEPHRINE HCL INJ 1 MG/ML AMP ONE (07:32)
[2017-06-17] MEDS ORDERED: TAMSULOSIN HCL 0.4 MG CAP PO SCH (09:00)
[2017-06-17] MEDS: ROPINIROLE HCL 1 MG TAB PO SCH (09:52)
[2017-06-17] MEDS: TAMSULOSIN HCL 0.4 MG CAP PO SCH (09:52)
[2017-06-17] MEDS: SUCRALFATE 1 GM/10 ML SUSP NG SCH ×3 (11:45→20:46)
[2017-06-17] MEDS ORDERED: PHENYLEPHRINE HCL 1% 10 MG/ML VIAL ONE (17:06)
[2017-06-17] MEDS ORDERED: PROPOFOL IV EMULSION 10 MG/ML 20 ML VIAL ONE (17:06)
[2017-06-17] MEDS ORDERED: EPHEDRINE SULFATE INJ 50 MG/10 ML SYR ONE (17:06)
[2017-06-17] MEDS ORDERED: LIDOCAINE HCL 2% LOCAL INJ 5 ML SDV VIAL INJ ONE (17:06)
[2017-06-17] MEDS ORDERED: FENTANYL CITRATE/PF 100MCG/2 ML INJ ONE (17:14)
--- NOTE | 2017-06-17 17:21 | Progress Note ---
DATE: June 17, 2017 MEDICINE PROGRESS NOTE TIME OF SERVICE: 4:15 p.m. SUBJECTIVE: Overnight patient underwent EGD. REVIEW OF SYSTEMS: Denies any dizziness, chest pain. VITAL SIGNS: Reviewed. PHYSICAL EXAMINATION GENERAL APPEARANCE: A tired-appearing man resting in bed. HEENT: Anicteric. CARDIOVASCULAR: Normal S1/S2. LUNGS: Moderate breath sounds. ABDOMEN: Soft, nontender, nondistended. EXTREMITIES: No edema. SKIN: Dry. PSYCHIATRIC: Flat affect. LABS: Reviewed. MEDICATIONS: Reviewed. ASSESSMENT: A 72-year-old man. 1. Hypotension, fluids. 2. Dizziness. 3. Melena/moderate to severe microcytic anemia. 4. End-stage renal disease on hemodialysis. 5. Hyperlipidemia. 6. Coronary artery disease. PLAN 1. No transfusion provided. Patient's hemoglobin more than 7. Will continue to follow her labs. Will follow up in the morning. 2. Report of bleeding ulcers seen on EGD. Awaiting final report. 3. Continue IV PPI b.i.d. and sucralfate. 4. SCDs but he prefers . 5. Follow up final reports and obtain anemia panel. Job#: [id number] EV
[2017-06-17 17:22] LABS: FERRITIN 690.84 ng/mL (21.81-274.66); THYROID STIMULATING HORMONE 3.456 uIU/mL (0.350-4.940)
[2017-06-17] MEDS: SIMVASTATIN 20 MG TAB PO SCH (20:46)
[2017-06-17] MEDS: LORATADINE 10 MG TAB PO SCH (20:46)
[2017-06-18] VITALS (8 sets, daily range): BP systolic 90–120; BP diastolic 44–68
[2017-06-18 06:32] LABS: HEMATOCRIT 22.2 % (38.2-49.6); HEMOGLOBIN 7.1 g/dL (14.0-18.0)
[2017-06-18] MEDS: SUCRALFATE 1 GM/10 ML SUSP NG SCH ×4 (07:30→21:00)
[2017-06-18] MEDS: PANTOPRAZOLE 40 MG 10ML VIAL IV SCH ×2 (09:00→21:00)
[2017-06-18] MEDS: TAMSULOSIN HCL 0.4 MG CAP PO SCH (09:00)
[2017-06-18] MEDS: ROPINIROLE HCL 1 MG TAB PO SCH (09:00)
--- NOTE | 2017-06-18 09:28 | Progress Note ---
DATE: June 18, 2017 TIME: 8:51 a.m. OVERNIGHT: No events. REVIEW OF SYSTEMS: Denies any dizziness or chest pain. PHYSICAL EXAMINATION VITAL SIGNS: Reviewed. GENERAL: A tired-appearing man resting in bed. HEENT: Anicteric. CARDIOVASCULAR: Normal S1 and S2. LUNGS: Moderate breath sounds. ABDOMEN: Soft, nontender and nondistended. EXTREMITIES: No edema. SKIN: Dry. PSYCHIATRIC: Normal affect. LABS: Reviewed. MEDICATIONS: Reviewed. ASSESSMENT: A 72-year-old man with: 1. Hypotension. 2. Dizziness. 3. Melena/duodenal ulcer. 4. Moderate to severe microcytic anemia. 5. End-stage renal disease, on hemodialysis. 6. Hyperlipidemia. 7. Coronary artery disease. PLAN 1. The patient's hemoglobin is still 7.1. He will benefit from 2 units of packed red blood cells. Will consult GI before it will be given. It will be given during dialysis. 2. End-stage renal disease. Dialysis per nephrology. 3. Continue IV PPI b.i.d. and sucralfate. 4. Continue to follow up blood counts. 5. Discharge planning. Job#: [id number] BATSHEVA
[2017-06-18] MEDS ORDERED: SODIUM CHLORIDE 0.9% 250ML 250 ML IV ONE (10:00)
[2017-06-18] MEDS ORDERED: FUROSEMIDE INJ 10 MG/ML 2 ML VIAL IV ONE ×2 (13:00→20:00)
[2017-06-18] MEDS ORDERED: SODIUM CHLORIDE 0.9% 250ML 250 ML ONE (13:49)
--- NOTE | 2017-06-18 16:01 | Progress Note ---
DATE: June 18, 2017 NEPHROLOGY PROGRESS NOTE Feels okay. He is feeling stronger. Denies any hematemesis. PHYSICAL EXAMINATION GENERAL: Laying in bed. VITALS: Temperature 36.9, pulse 78, blood pressure 94/60. HEENT: Atraumatic. NECK: No JVD. CHEST: Clear. EXTREMITIES: Trace edema. ABDOMEN: Benign. Hemoglobin 7. Potassium is 4.6, creatinine 4.4, serum CO2 31. Iron stores adequate. ASSESSMENT 1. End-stage renal disease: Satisfactory electrolytes. Minimal edema now. 2. Anemia presumed from blood loss. PLAN: Hemodialysis today. Bleeding hopefully has stopped, but will transfuse as he remains anemic. This may help with blood pressure. Please see orders for details. Plan another 4-hour run with 3 L fluid removal, 2 potassium bath. Transfusion on dialysis. Blood flow rate 400 mL per minute. Dialysate fluid 700 mL per minute, F160 filter. Thank you for allowing us to participate in Mr. Rosario's care. Job#: [id number] [place]
[2017-06-18] MEDS: LORATADINE 10 MG TAB PO SCH (21:00)
[2017-06-18] MEDS: SIMVASTATIN 20 MG TAB PO SCH (21:00)
[2017-06-19] VITALS: BP 125/64
[2017-06-19 04:00] VITALS: BP 100/57
[2017-06-19 05:58] LABS: BASOPHILS % 0.6 % (0.0-1.0); EOSINOPHILS # (AUTO) 0.4 (0.0-0.4); EOSINOPHILS % 6.7 % (0.0-6.0); HEMATOCRIT 28.6 % (38.2-49.6); HEMOGLOBIN 9.5 g/dL (14.0-18.0); LYMPHOCYTES # (AUTO) 1.5 (1.0-3.2); LYMPHOCYTES % 26.9 % (18.0-39.1); MEAN CORPUSCULAR HGB CONC 33.2 g/dL (31-35); MEAN CORPUSCULAR VOLUME 93.5 fL (81-99); MONOCYTES # (AUTO) 0.5 (0.2-0.8); MONOCYTES % 8.3 % (4.4-11.3); NEUTROPHILS # (AUTO) 3.1 (2.1-6.9); NEUTROPHILS % 57.1 % (38.7-80.0); PLATELET COUNT 125 x10e3/uL (140-360); RED BLOOD COUNT 3.06 x10e6/uL (4.3-5.7); RED CELL DISTRIBUTION WIDTH 16.7 % (11.7-14.4)
[2017-06-19] MEDS ORDERED: SUCRALFATE1 G/10 ML NG (06:53)
[2017-06-19] MEDS ORDERED: PANTOPRAZOLE SO40 MG PO (06:53)
[2017-06-19] MEDS ORDERED: FLOMAX0.4 MG PO (06:53)
[2017-06-19 07:40] VITALS: BP 113/62
--- NOTE | 2017-06-19 08:34 | Discharge Summary ---
PRINCIPAL DIAGNOSES 1. Hypotension. 2. Dizziness. 3. Melena secondary to duodenal ulcer. 4. Moderate to severe microcytic anemia requiring 3 units of packed red blood cell transfusion. 5. End-stage renal disease, on hemodialysis. 6. Hyperlipidemia. SECONDARY DIAGNOSES 1. Coronary artery disease. 2. End-stage renal disease. CHIEF COMPLAINT: Low blood pressure and black stool. HISTORY OF PRESENT ILLNESS: A 72-year-old man developing low blood pressure and black stool. For further details, refer to the H and P. HOSPITAL COURSE: The patient was hypotensive. He had dizziness and melena. Endoscopy showed duodenal ulcer. He received blood transfusion of 2 units. He had moderate to severe microcytic anemia and end-stage renal disease. The patient received dialysis. He had been receiving dialysis here. The patient doing better. Hemoglobin has improved. Hemoglobin went from 7.1 to 9.5. The patient is currently appropriate for discharge. Will follow up. DISCHARGE MEDICATIONS: Per electronic medical records and includes sucralfate and Protonix. CONDITION ON DISCHARGE: Stable and improving. DISCHARGE LOCATION: Home. FOLLOWUP: Primary care doctor in 1 week. Follow up with metal sprayer machined parts in 2 weeks. Follow up with wood and wood products factory worker as directed. DAYTON FRANKLIN MD Job#: [id number] [place]
[2017-06-19] MEDS: SUCRALFATE 1 GM/10 ML SUSP NG SCH (08:36)
[2017-06-19] MEDS: TAMSULOSIN HCL 0.4 MG CAP PO SCH (08:36)
[2017-06-19] MEDS: ROPINIROLE HCL 1 MG TAB PO SCH (08:36)
[2017-06-19] MEDS: PANTOPRAZOLE 40 MG 10ML VIAL IV SCH (08:36)
--- NOTE | 2017-06-19 10:01 | Progress Note ---
DATE: June 18, 2017 GASTROENTEROLOGY PROGRESS NOTE SUBJECTIVE: Patient reports no abdominal pain. Tolerating oral feeds. Regular BM. Soft brown stool. REVIEW OF SYSTEMS GENERAL: No fever or chills. RESPIRATORY: No cough or expectoration. CV: No chest pain or palpitations. MEDICATIONS: Reviewed as per MAR. He is gettin. Pantoprazole 40 mg IV b.i.d. 2. Sucralfate suspension 1 g q.i.d. and at night. 3. Other medications. PHYSICAL EXAMINATION VITAL SIGNS: Temperature 96.5, pulse 68, respirations 18, blood pressure 110/63, and oxygen saturation 96% on room air. GENERAL: Not in any acute distress. HEENT: Moist mucous membranes. Anicteric sclerae. NECK: No neck or axillary adenopathy. CV: S1 and S2 regular. LUNGS: Bilaterally grossly clear. ABDOMEN: Soft. Mild epigastric tenderness on deep palpation. No rebound, rigidity or guarding. Positive bowel sounds. EXTREMITIES: Warm. No leg edema. LABS: WBC 4.7, hemoglobin 7.1, hematocrit 21.9, and platelet count 169,000. Electrolytes done yesterday showed sodium 141, potassium 4.6, chloride 103, bicarb 31, BUN 20, creatinine 4.49. IMPRESSION 1. Acute blood loss anemia with hem-positive stool: Upper endoscopy done yesterday showed small crater ulcer in the duodenum with stigmata of bleeding. Therefore, it was treated with epinephrine injection, as well as Endoclips deployed. 2. End-stage renal disease, on hemodialysis. PLAN: We can switch PPI to oral b.i.d. No NSAIDs. Continue sucralfate suspension for about a week. Hemoglobin remains stable. Transfuse as necessary. 3. Gastric biopsies were done, and results pending. Patient can be discharged from the GI standpoint. He should follow up with me in the office in 2 weeks. Job#: [id number] BATSHEVA BARNETT
== END 2017-06-19 11:00 | disposition home or self-care (01) | DRG 329 ==
LOC: ER 10:56 → ERHOLD 14:40 → MED/SURG 16:21
PROVIDERS: ADMIT Internal Medicine; ATTEND Internal Medicine
PROC: 30233N1 Transfusion of Nonautologous Red Blood Cells into Peripheral Vein, Percutaneous Approach (ICD-10-PCS; principal; 2017-06-16)
PROC: 5A1D70Z Performance of Urinary Filtration, Intermittent, Less than 6 Hours Per Day (ICD-10-PCS; 2017-06-16)
PROC: 0DB68ZX Excision of Stomach, Via Natural or Artificial Opening Endoscopic, Diagnostic (ICD-10-PCS; 2017-06-17)
PROC: 3E0 Administration, Physiological Systems and Anatomical Regions, Introduction (ICD-10-PCS; 2017-06-17)
PROC: 0DL98DZ Occlusion of Duodenum with Intraluminal Device, Via Natural or Artificial Opening Endoscopic (ICD-10-PCS; 2017-06-17 08:15)
PROC: 0DB78ZX Excision of Stomach, Pylorus, Via Natural or Artificial Opening Endoscopic, Diagnostic (ICD-10-PCS; 2017-06-17 08:15)
DX: K26.0 Acute duodenal ulcer with hemorrhage (principal); N18.6 End stage renal disease; I12.0 Hypertensive chronic kidney disease with stage 5 chronic kidney disease or end stage renal disease; D63.1 Anemia in chronic kidney disease; D62 Acute posthemorrhagic anemia; N25.81 Secondary hyperparathyroidism of renal origin; Z99.2 Dependence on renal dialysis; I25.10 Atherosclerotic heart disease of native coronary artery without angina pectoris; K29.70 Gastritis, unspecified, without bleeding; K44.9 Diaphragmatic hernia without obstruction or gangrene; K21.0 Gastro-esophageal reflux disease with esophagitis
CPT/HCPCS: 36415; 36430; 43235; 43239; 71045; 80048; 80053; 81001; 82550; 82553; 82607; 82728; 82948; 83540; 83880; 84443; 84466; 84484; 85014; 85018; 85025; 85610; 85730; 86850; 86900; 86920; 87340; 88305; 88312; 90962; 93005; 99284; J0171; J2001; J2370; J7030; J7050; P9016

== ENCOUNTER 2018-12-13 08:41 | Outpatient (RCR) | payer MEDICARE ==
[~2018-12-13 08:41] MED LIST changes: +FLOMAX0.4 MG PO; +PANTOPRAZOLE SO40 MG PO; +SUCRALFATE1 G/10 ML NG
== END 2018-12-28 ==
LOC: PT 08:41
PROVIDERS: ATTEND Specialist
DX: M17.12 Unilateral primary osteoarthritis, left knee (principal); M62.81 Muscle weakness (generalized); M25.562 Pain in left knee; M25.662 Stiffness of left knee, not elsewhere classified; R26.2 Difficulty in walking, not elsewhere classified

== ENCOUNTER 2019-10-08 20:52 | Inpatient (IN) | payer MEDICARE, OTHER ==
[~2019-10-08] VITALS: Ht 172.7 cm; Wt 83.0 kg
[2019-10-08] MEDS ORDERED: SODIUM CHLORIDE 0.9% 1000ML 1,000 ML IV STA ×2 (20:56→22:16)
[2019-10-08 21:29] LABS: BASOPHILS % 0.4 % (0.0-1.0); EOSINOPHILS % 0.4 % (0.0-6.0); HEMATOCRIT 38.7 % (38.2-49.6); HEMOGLOBIN 12.5 g/dL (14.0-18.0); LYMPHOCYTES # (AUTO) 0.8 (1.0-3.2); LYMPHOCYTES % 11.1 % (18.0-39.1); MEAN CORPUSCULAR HEMOGLOBIN 29.9 pg (28-32); MEAN CORPUSCULAR HGB CONC 32.3 g/dL (31-35); MEAN CORPUSCULAR VOLUME 92.6 fL (81-99); MONOCYTES # (AUTO) 0.4 (0.2-0.8); NEUTROPHILS # (AUTO) 5.6 (2.1-6.9); NEUTROPHILS % 80.5 % (38.7-80.0); PLATELET COUNT 104 x10e3/uL (140-360); RED BLOOD COUNT 4.18 x10e6/uL (4.3-5.7); RED CELL DISTRIBUTION WIDTH 14.4 % (11.7-14.4)
[2019-10-08] MEDS ORDERED: MIDODRINE HCL5 MG PO (21:31)
[2019-10-08] MEDS ORDERED: NAPROXEN250 MG PO (21:31)
[2019-10-08] MEDS ORDERED: HYDROXYZINE PAM25 MG PO (21:31)
[2019-10-08] MEDS ORDERED: FAMOTIDINE20 MG PO (21:31)
[2019-10-08 21:44] LABS: ALBUMIN 2.4 g/dL (3.5-5.0); ALBUMIN/GLOBULIN RATIO 0.7 (0.8-2.0); ANION GAP 21.8 mmol/L (8-16); CALCIUM 8.4 mg/dL (8.4-10.2); CREATININE, SERUM 8.28 mg/dL (0.72-1.25); POTASSIUM 4.8 mmol/L (3.5-5.1)
[2019-10-08 21:51] LABS: CREATINE KINASE MB 2.5 ng/mL (0-5.0)
--- NOTE | 2019-10-08 22:16 | NUR ---
INFORMED DR. HARRELL OF PT CURRENT HEMODYNAMICS, RECEIVED ORDERS FOR ADDITIONAL LITER OF NS WIDE OPEN, WILL GIVE TO PT AND CONTINUE TO MONITOR.
[2019-10-08] MEDS ORDERED: IOPAMIDOL 370 MG/ML 200 ML INFUS..BTL INJ ONE (22:25)
[2019-10-08] MEDS ORDERED: SODIUM CHLORIDE 0.9% 50ML 50 ML ONE (22:26)
[2019-10-08] MEDS ORDERED: SODIUM CHLORIDE 0.9% 500ML 500 ML IV STA (23:48)
--- NOTE | 2019-10-09 | NUR ---
DR. HARRELL ORDERED TO GIVE ANOTHER 500 CC OF NS WIDE OPEN FOR BP MANAGEMENT, STATES BENEFITS OUTWEIGH RISKS, PT IN NAD, BREATHING E/U, BREATH SOUNDS NORMAL; DOES STATE TO BE FEELING BETTER, BUT BP REMAINS LOW WITH MILD IMPROVEMENT TRENDING UP; WILL PROVIDE MEDICATION AND WILL CONTINUE TO MONITOR.
--- NOTE | 2019-10-09 00:25 | Diagnostic Imaging Report ---
EXAM: CT Abdomen and Pelvis WITH contrast INDICATION: Abdominal pain, nausea, vomiting, diarrhea COMPARISON: Abdominal CT 05/27/2017 TECHNIQUE: Abdomen and pelvis were scanned utilizing a multidetector helical scanner from the lung base to the pubic symphysis after administration of IV contrast. Coronal and sagittal reformations were obtained. Routine protocol was performed. Scan was performed when during portal venous phase. IV CONTRAST: 100 mL of Isovue 370 ORAL CONTRAST: None COMPLICATIONS: None RADIATION DOSE: Total DLP: 531 mGy*cm Estimated effective dose: (DLP x 0.015 x size factor) mSv CTDIvol has been reviewed. It is below the limits set by the Radiation Protocol Committee (RPC). Dose modulation, iterative reconstruction, and/or weight based adjustment of the mA/kV was utilized to reduce the radiation dose to as low as reasonably achievable. FINDINGS: LINES and TUBES: None. LOWER THORAX: Subendocardial fat deposition in the left ventricular apex is the sequelae of remote cardiac infarction. Mild cardio negative.. Hyperdensities in the coronary arteries. A 7 mm subpleural nodule in the basolateral right lower lobe. HEPATOBILIARY: No focal hepatic lesions. No biliary ductal dilation. GALLBLADDER: There are cholecystectomy clips. SPLEEN: Mild splenomegaly. PANCREAS: The main pancreatic duct within the pancreatic head is mildly dilated, 5 mm in diameter. No obvious mass. ADRENALS: No adrenal nodules KIDNEYS/URETERS: Kidneys enhance symmetrically. Several simple appearing bilateral renal cysts. No hydronephrosis. No stones. GI TRACT: No abnormal distention, wall thickening, or evidence of bowel obstruction. Several fluid-filled loops of nondilated small bowel, and liquid stool in throughout most of the colon. Appendix is normal. PELVIC ORGANS/BLADDER: Mild prostatomegaly. Urinary bladder under distended with circumferential urinary bladder wall thickening, correlate for cystitis. LYMPH NODES: No lymphadenopathy. VESSELS: The main portal vein is mildly dilated, 1.9 cm in diameter. Extensive arterial atherosclerosis in the abdomen, with possible flow-limiting stenosis at the superior mesenteric artery due to calcific atherosclerotic plaque. PERITONEUM / RETROPERITONEUM: No free air or fluid. BONES: Degenerative changes. SOFT TISSUES: Unremarkable. IMPRESSION: 1. Findings can seen with enterocolitis. 2. Mild cardiomegaly and coronary artery disease, with evidence of remote left ventricular apical myocardial infarction. 3. Extensive arterial atherosclerosis in the abdomen, with possible flow-limiting stenosis at the superior mesenteric artery due to calcific atherosclerotic plaque. 4. Mild prostatomegaly. Urinary bladder under distended with circumferential urinary bladder wall thickening, correlate for cystitis. 5. Mild main pancreatic duct dilation without obvious mass. Recommend follow-up abdominal CT with contrast in 6 months, pancreas mass protocol. 6. Mild splenomegaly. Signed by: Felix Ulloa DO on 10/09/2019 12:21 AM
[2019-10-09] MEDS: PIPER-TAZ 3.375 GM 50 ML IV SCH ×2 (01:20→10:16)
[2019-10-09] MEDS: SODIUM CHLORIDE 0.9% 1000ML 1,000 ML IV SCH ×3 (01:20→18:27)
[2019-10-09] MEDS ORDERED: SODIUM CHLORIDE 0.9% 1000ML 1,000 ML IV STA (01:52)
--- NOTE | 2019-10-09 02:36 | NUR ---
DR. HARRELL AT BEDSIDE EXPLAINING CURRENT HEMODYNAMIC STATUS AND NEED FOR CENTRAL LINE PLACEMENT FOR TREATMENT, ED MD EXPLAINED RISKS, BENEFITS, AND ALTERNATIVE TREATMENTS, PT VERBALIZED UNDERSTANDING, GIVEN OPPORTUNITY FOR QUESTIONS, ADDRESSED CONCERNS; INFORMED CONSENT WITNESSED AND PLACED ON CHART AT THIS TIME.
--- NOTE | 2019-10-09 03:30 | NUR ---
CENTRAL LINE PLACED BY DR. HARRELL ED PHYSICIAN TO RT FEMORAL, PER PHYSICIAN OKAY TO USE FOR LABS/MEDS, STATES DOES NOT WANT TO START VASOPRESSORS AT THIS TIME, WILL ORDER IF BP DROPS MORE; WILL CONTINUE TO MONITOR PT AND UPDATE PHYSICIAN ON STATUS NEEDED.
--- NOTE | 2019-10-09 05:22 | NUR ---
INFORMED ED MD OF CURRENT BP WITH MAP <60, VERBAL ORDERS TO START LEVOPHED @ 5 MCG/MIN AT THIS TIME.
[2019-10-09] MEDS ORDERED: NOREPINEPHRINE 8 MG/D5W 250 ML 250 ML ONE (05:28)
[2019-10-09] MEDS: NOREPINEPHRINE INJ 4MG/4ML 8 MG in DEXTROSE 5% 250ML 250 ML IV SCH (05:28)
--- NOTE | 2019-10-09 05:28 | NUR ---
PATIENT STARTED ON LEVOPHED DRIP AT THIS TIME @5 MCG/MIN PER ED MD ORDERS, WILL CONTINUE TO MONITOR PT.
--- NOTE | 2019-10-09 05:38 | NUR ---
AM LABS AND REPEAT CARDIACS COLLECTED AND SENT TO LAB FOR ANALYSIS.
[2019-10-09 06:20] LABS: CREATINE KINASE MB 2.4 ng/mL (0-5.0)
--- NOTE | 2019-10-09 07:11 | NUR ---
REPORT GIVEN TO ROBLES GRULLON.
[2019-10-09] MEDS ORDERED: HYDRALAZINE HCL 20 MG/ML VIAL IV PRN (12:15)
[2019-10-09] MEDS ORDERED: ACETAMINOPHEN 325 MG TAB PO PRN (12:15)
--- NOTE | 2019-10-09 14:34 | Consultation ---
DATE OF CONSULTATION: Pulmonary Critical Care Consultation CHIEF COMPLAINT: Vomiting and diarrhea in a patient with end-stage renal disease. HISTORY OF PRESENT ILLNESS: The patient is a 74-year-old man. He has a history of end-stage renal disease and has been on dialysis for 3 years. Yesterday, he ate some shrimp that seems intolerable. He started to have some vomiting and diarrhea. He is continued to have some diarrhea and vomiting. He also notes abdominal pain. He denies any fever or chills. The patient is not complaining of cough or trouble breathing. PAST MEDICAL HISTORY: 1. Myocardial infarction in 2001. 2. End-stage renal disease. 3. Hypertension. PAST SURGICAL HISTORY: 1. Status post angioplasty and stent in 2001. 2. No prior abdominal surgeries. SOCIAL HISTORY: The patient does not drink alcohol. He is not an active smoker. ALLERGIES: NO KNOWN DRUG ALLERGIES. REVIEW OF SYSTEMS: The patient is afebrile. He is not complaining of headache or neck pain. He has no chest pain. He is not complaining of difficulty breathing or cough. He does have some abdominal distention. He has no rebound. He does have some vomiting and diarrhea. He denies any leg edema. PHYSICAL EXAMINATION: VITAL SIGNS: The patient is afebrile. The blood pressure is 108/53 and the pulse is 94. The respiratory rate is 18. Saturation is 98%. HEENT: Shows no facial swelling or erythema. CARDIAC: Reveals regular rate and rhythm with normal S1 and S2. LUNGS: Auscultation of lungs reveals decreased breath sounds at the bases. There is no wheezing. ABDOMEN: Soft. There is some mild distention. There is no rebound or guarding. EXTREMITIES: Shows no leg edema or calf tenderness. There is no cyanosis or clubbing. SKIN: Shows no rashes. NEUROLOGICAL: Shows no focal abnormalities. LABORATORY DATA: BUN to creatinine ratio is 56 to 8.28. Other electrolytes are within normal limits. White blood cell count is 6.9 and the hemoglobin is 12.5. The platelet count is 104. RADIOGRAPHIC DATA: CT scan of the abdomen and pelvis shows findings consistent with enterocolitis. The patient also has an enlarged prostate and some dilatation in his pancreatic duct. IMPRESSION: 1. Acute gastroenteritis. 2. Hypovolemia and hypertension. 3. End-stage renal disease. 4. History of coronary artery disease. PLAN: 1. IV hydration. 2. Stool studies for enterocolitis. 3. Infectious Disease consultation. 4. The patient is scheduled for dialysis today. The patient's regular dental cream maker, Dr. Hernandez is consulted. MD SHO Arguelles/YOBANY /[id number]
[2019-10-09] MEDS ORDERED: ROPINIROLE HCL 5 MG PO SCH (15:00)
[2019-10-09] MEDS ORDERED: CEFEPIME HCL 1 GM VIAL IV SCH (15:30)
[2019-10-09] MEDS: ROPINIROLE HCL 2 MG TAB PO SCH ×2 (15:35→22:29)
[2019-10-09] MEDS: METRONIDAZOLE 500MG/NS 100ML 100 ML IV SCH (15:37)
[2019-10-09] MEDS: MIDODRINE HCL 5 MG TABLET PO SCH ×2 (15:40→18:25)
--- NOTE | 2019-10-09 16:16 | NUR ---
Levophed titrated down to 4 mcg. Will asses to see if patients blood pressure remains stable.
[2019-10-09 16:26] LABS: CLARITY,URINE SL CLOUDY (CLEAR); COLOR,URINE AMBER (YELLOW)
[2019-10-09 16:27] LABS: BILIRUBIN,URINE SMALL (NEGATIVE); KETONES,URINE NEGATIVE (NEGATIVE); LEUKOCYTE ESTERASE ,URINE NEGATIVE (NEGATIVE); NITRITE,URINE NEGATIVE (NEGATIVE); PROTEIN,URINE DIPSTICK >=300 (NEGATIVE); URINE UROBILINOGEN 0.2 mg/dL (0.2 - 1)
[2019-10-09] MEDS: CEFEPIME 1GM/NS 0.9% 50 ML 50 ML IV SCH (16:49)
[2019-10-09 16:53] LABS: BACTERIA,URINE MODERATE /HPF; RBC,URINE 21-50 /HPF (0-5); WBC,URINE (MAN) 0-5 /HPF (0-5)
[2019-10-09] MEDS ORDERED: FAMOTIDINE 20 MG TAB PO SCH (17:00)
--- NOTE | 2019-10-09 17:42 | NUR ---
Levophed titrated to 3mcg. Current bp 116/60.
[2019-10-09] MEDS: VANCOMYCIN 250MG/5ML ORAL SOLN PO SCH (18:24)
[2019-10-09] MEDS: TAMSULOSIN HCL 0.4 MG CAP PO SCH (18:26)
--- NOTE | 2019-10-09 18:26 | NUR ---
Patient levophed titrated to 1 mcg abd blood pressure decreased to 99/60 map still above 60.
[2019-10-09] MEDS: FAMOTIDINE 20 MG/2 ML VIAL IV SCH (18:27)
--- NOTE | 2019-10-09 18:35 | NUR ---
Patient levophed increased to 3mcg. Pressure increased to 107/57. map greater than 60.
--- NOTE | 2019-10-09 18:50 | Consultation ---
DATE OF CONSULTATION: REASON FOR CONSULTATION: Colitis. HISTORY OF PRESENT ILLNESS: Mr. Rosario, who is a 74-year-old male, who has history of end-stage renal disease on hemodialysis for the last 3 years, history of hypertension, history of atherosclerotic disease, coronary artery disease, myocardial infarction in 2001, status post angioplasty and stent placement 2001. The patient comes in with abdominal pain, nausea, diarrhea, not feeling well. The patient came to the emergency room and he is going to be admitted. The patient denies any other history or complaints at present time. He came to the emergency room. His white count was 6.96, hemoglobin 12.5, and hematocrit is 38. COVID-19 was ordered, still pending. Sodium 135, potassium 4.8, and creatinine 8.8. The patient, who had CAT scan of abdomen and pelvis showed enterocolitis, cardiomegaly. MEDICATIONS: The patient is currently on norepinephrine, metronidazole, and Zosyn. The patient denies any other complaints except abdominal pain and discomfort. He denies any other problems. No recent hospitalization. PAST MEDICAL HISTORY: As above. PAST SURGICAL HISTORY: As above. ALLERGIES: NKA. SOCIAL HISTORY: Denies smoking, drug abuse, or alcohol abuse. FAMILY HISTORY: Hypertension. REVIEW OF SYSTEMS: As mentioned above he denies any. PHYSICAL EXAMINATION: GENERAL: Alert and oriented. Does not seem to be in acute distress. VITAL SIGNS: Stable, afebrile. HEENT: He is not icteric. NECK: Supple. CHEST: Clear. HEART: S1 and S2. No S3, S4, or murmur. ABDOMEN: Soft. Bowel sounds present. Diffuse discomfort with mild tenderness. EXTREMITIES: No edema. SKIN: No rash. IMPRESSION: 1. Enterocolitis, concerning Clostridium difficile versus ischemic. 2. End-stage renal disease. 3. Hypertension, atherosclerotic disease. RECOMMENDATIONS: N.p.o., NG to intermittent suction, Flagyl 500 IV q.8, cefepime 1 g daily, vancomycin 250 mg p.o. q.8. Obtain stools for Clostridium difficile. Serial KUB, serial CBC. Further recommendations to follow. MD KEYONA [place]/MODL /[id number]
--- NOTE | 2019-10-09 18:59 | NUR ---
report given to Prashanth STAHL
--- NOTE | 2019-10-09 19:35 | Progress Note ---
DATE: 10/09/2019 Dialysis Note SUBJECTIVE: The patient is awake and alert. OBJECTIVE: VITAL SIGNS: Resting blood pressure 108/53, pulse is 77, afebrile. HEAD AND NECK: Cornea clear. Mucosa moist. LUNGS: Bibasilar rales. HEART: S1 and S2 audible. ABDOMEN: Soft and nontender. EXTREMITIES: Lower extremity, no edema. LABORATORY DATA: Noted. Sodium 140, potassium 3, bicarb 35, and calcium 2.5. Blood flow 400, dialysate 800, UF as tolerated. IMPRESSION: End-stage renal disease, dialysis. Ursula Lucas MD SAK/MODL /[id number]
--- NOTE | 2019-10-09 20:05 | NUR ---
dialysis nurse at bedside preparing to start pt on dialysis
[2019-10-09] MEDS ORDERED: NON-FORMULARY MEDICATION (Pravastatin Sodium 40 MG) PO SCH (21:00)
[2019-10-09] MEDS ORDERED: PIPER-TAZ 3.375 GM 50 ML IV SCH (21:00)
--- NOTE | 2019-10-09 21:00 | NUR ---
pt currently on dialysis. po bedtime medications held at this time per hd nurse
[2019-10-09] MEDS: PRAVASTATIN 20 MG TAB PO SCH (22:29)
[2019-10-10] VITALS (15 sets, daily range): BP systolic 88–118; BP diastolic 53–70
--- NOTE | 2019-10-10 00:05 | NUR ---
dialysis nurse states that hd completed. 2 liters off per hd nurse. antibiotics administered per orders at this time.
[2019-10-10] MEDS: METRONIDAZOLE 500MG/NS 100ML 100 ML IV SCH ×4 (00:06→22:28)
[2019-10-10] MEDS: VANCOMYCIN 250MG/5ML ORAL SOLN PO SCH ×4 (00:10→17:15)
--- NOTE | 2019-10-10 01:00 | NUR ---
bp 112/60, levophed decreased to 2.5 mcg/kg/min.
[2019-10-10 02:28] LABS: CREATINE KINASE MB 2.5 ng/mL (0-5.0)
[2019-10-10] MEDS: NOREPINEPHRINE INJ 4MG/4ML 8 MG in DEXTROSE 5% 250ML 250 ML IV SCH (05:29)
[2019-10-10 05:48] LABS: BASOPHILS % 0.5 % (0.0-1.0); EOSINOPHILS # (AUTO) 0.2 (0.0-0.4); EOSINOPHILS % 2.3 % (0.0-6.0); HEMATOCRIT 32.8 % (38.2-49.6); HEMOGLOBIN 10.8 g/dL (14.0-18.0); LYMPHOCYTES # (AUTO) 0.5 (1.0-3.2); LYMPHOCYTES % 7.9 % (18.0-39.1); MEAN CORPUSCULAR HEMOGLOBIN 29.7 pg (28-32); MEAN CORPUSCULAR HGB CONC 32.9 g/dL (31-35); MEAN CORPUSCULAR VOLUME 90.1 fL (81-99); MONOCYTES # (AUTO) 0.3 (0.2-0.8); MONOCYTES % 4.9 % (4.4-11.3); NEUTROPHILS # (AUTO) 5.4 (2.1-6.9); NEUTROPHILS % 83.9 % (38.7-80.0); PLATELET COUNT 83 x10e3/uL (140-360); RED BLOOD COUNT 3.64 x10e6/uL (4.3-5.7); RED CELL DISTRIBUTION WIDTH 14.2 % (11.7-14.4)
[2019-10-10 05:56] LABS: ALBUMIN 1.9 g/dL (3.5-5.0); ALBUMIN/GLOBULIN RATIO 0.6 (0.8-2.0); CALCIUM 7.8 mg/dL (8.4-10.2); CREATININE, SERUM 5.37 mg/dL (0.72-1.25); MAGNESIUM 1.5 MG/DL (1.3-2.1)
[2019-10-10] MEDS ORDERED: DEXTROSE 50% SYRINGE 50 ML IV ONE (06:08)
[2019-10-10 06:16] LABS: THYROID STIMULATING HORMONE 1.511 uIU/mL (0.350-4.940)
[2019-10-10] MEDS: TAMSULOSIN HCL 0.4 MG CAP PO SCH ×2 (07:32→16:02)
[2019-10-10] MEDS: FAMOTIDINE 20 MG/2 ML VIAL IV SCH ×2 (07:32→16:02)
[2019-10-10] MEDS: MIDODRINE HCL 5 MG TABLET PO SCH ×3 (07:32→17:14)
[2019-10-10] MEDS: ROPINIROLE HCL 2 MG TAB PO SCH ×3 (07:32→21:00)
[2019-10-10 08:34] LABS: PLATELET ESTIMATE MODERATELY DECREASED
[2019-10-10 11:02] LABS: EOSINOPHILS % (MANUAL) 2 % (0-7); LYMPHOCYTES % (MANUAL) 8 % (19-48); MONOCYTES % (MANUAL) 5 % (3.4-9.0); NEUTROPHILS % (MANUAL) 85 % (40-74)
--- NOTE | 2019-10-10 12:08 | Progress Note ---
DATE: SUBJECTIVE: The patient is seen and evaluated in the emergency room. Available labs and notes reviewed. Discussed with the patient. Discussed with Dr. Aguilar. REVIEW OF SYSTEMS: Still with diarrhea, but abdominal pain has improved. No nausea, vomiting, fever, chills, chest pain, or shortness of breath. PHYSICAL EXAMINATION: VITAL SIGNS: Temperature 98.1, pulse 83, respirations 16, and blood pressure 100/54. GENERAL: Alert and oriented, comfortable in bed, no acute distress. CV: S1 and S2. CHEST: Equal expansion. Clear to auscultation. ABDOMEN: Soft. No tender, has some discomfort. Positive bowel sounds. HEENT: Moist. No pallor. No JVD. EXTREMITIES: Weak. No cyanosis. MEDICATIONS: Medication list reviewed and as far as Infectious Disease point of view, the patient is on cefepime, Flagyl IV, and vancomycin p.o. LABORATORY STUDIES: White count 6.47, hemoglobin 10.8, and platelets 83 lower compared with 2 days ago. Sodium 136, potassium 4, and creatinine 5.37. Lipase 7 on 10/08/2019, AST 21, and ALT 12. Serology, coronavirus PCR is pending. Hepatitis panel is pending. MICROBIOLOGY: Blood culture negative 24 hours. RADIOLOGY STUDIES: CT of abdomen and pelvis, suggestive of enterocolitis. CTA of the abdomen and pelvis pending. ASSESSMENT AND PLAN: 1. Enterocolitis. 2. Concern Clostridium difficile versus ischemia. Follow with CT of abdomen and pelvis. 3. End-stage renal disease. 4. Hypertension. 5. Atherosclerotic disease. 6. Obesity. 7. Continue with antibiotics. As mentioned above, follow with CTA of the abdomen and pelvis. Clinically feels better. Monitor the patient clinically. Follow up with the labs. Discussed with Dr. Aguilar in details. Please refer to chart for more information. Dictated by Nathaniel Stevens PA-C (Al) Kyree Aguilar MD /MODL /[id number]
--- NOTE | 2019-10-10 12:24 | Diagnostic Imaging Report ---
CTA of the abdomen and pelvis. History: Abdominal pain, SMA stenosis. Comparison: CT abdomen/pelvis with contrast from 10/08/2019. Technique: Multidetector CT scanning of the abdomen and pelvis was performed from the level of the lung bases to the inferior pubic rami before and after after the administration of intravenous contrast material according to the CTA protocol. Coronal sagittal reformats were obtained. RADIATION DOSE: Total DLP: 1418.21 mGy*cm Dose modulation, iterative reconstruction, and/or weight based adjustment of the mA/kV was utilized to reduce the radiation dose to as low as reasonably achievable. FINDINGS: Vascular: There is extensive atherosclerotic plaquing of the abdominal aorta and branch vessels. The abdominal aorta is normal in course and caliber without evidence for aneurysmal dilatation. Maximal AP diameter is are 2.5 cm at the diaphragmatic hiatus, 2.4 cm at the super mesenteric segment, 2.2 cm at the mesenteric segment, 2.0 cm at the renal segment, 1.8 cm infrarenal segment, and 1.8 cm proximal to the bifurcation. Small amount of posterior crescentic mural thrombus noted within the distal abdominal aorta above the bifurcation. The origin of the celiac artery is patent. The common hepatic, splenic, and left gastric arteries are patent without significant stenosis or other abnormality. The SMA is patent with prominent atherosclerotic plaquing at its origin resulting in approximately 50-70% luminal narrowing. The remaining SMA and branch vessels are widely patent. The bilateral renal arteries are patent with atherosclerotic plaquing noted at the origin of the right renal artery resulting in approximately 50% luminal narrowing. The NATHANAEL is patent without significant stenosis. The bilateral common iliac arteries and external iliac, and internal iliac arteries are patent without hemodynamically significant stenosis. Nonvascular: 7 mm subpleural nodule again identified within the right lower lobe. There is bibasilar atelectasis/scarring. The liver is normal in size and attenuation without evidence for focal abnormality. The gallbladder is surgically absent. There is no biliary ductal dilatation. The stomach, spleen, pancreas, and bilateral adrenal glands are unremarkable. Mild prominence of the pancreatic duct again noted. The kidneys are normal in location. Multiple nonenhancing exophytic lesions are identified bilaterally likely reflecting cysts. There is no evidence for hydronephrosis. No ureteral stone or dilatation is appreciated. Circumferential wall thickening again noted of the urinary bladder which may reflect underdistention. A cystitis could have a similar appearance. 5 mm calcification versus stone is identified within the urinary bladder distal to the left ureterovesical junction. The prostate is enlarged. The IVC is unremarkable. Please note evaluation the bowel is limited without the use of enteric contrast material. Again noted are upper normal caliber, fluid-filled loops of small bowel within the abdomen and pelvis. There is abnormal wall thickening, possible small foci of extraluminal air and adjacent inflammatory change identified along a loop of small bowel within the mid abdomen (axial image 62). There is no evidence for high-grade bowel obstruction. There is no ascites. No abnormally enlarged lymph nodes are identified within the abdomen or pelvis. The osseous structures demonstrate stable degenerative changes without evidence for acute fracture or destructive process. IMPRESSION: 1. Extensive abdominal aortic atherosclerosis. The celiac axis, SMA, bilateral renal arteries, and NATHANAEL remain patent. Atherosclerotic plaquing at the origin of the SMA results in approximately 50-70% luminal narrowing. The more distal aspects of the SMA and branch vessels are widely patent. 2. Again identified are findings that can be seen with enterocolitis. Additionally, abnormal wall thickening, adjacent inflammatory change, and suspected foci of extraluminal air identified adjacent to a loop of small bowel within the mid abdomen which may reflect a contained perforation. 3. Additional stable findings as detailed above and not significantly changed from the recent prior examination from 10/08/2019. Signed by: Dr. Amaury Davis MD on 10/10/2019 12:21 PM
[2019-10-10] MEDS ORDERED: IOPAMIDOL 370 MG/ML 200 ML INFUS..BTL INJ ONE (14:39)
[2019-10-10] MEDS ORDERED: SODIUM CHLORIDE 0.9% 100 ML ONE (14:39)
[2019-10-10] MEDS: CEFEPIME 1GM/NS 0.9% 50 ML 50 ML IV SCH (14:57)
[2019-10-10] MEDS ORDERED: GUAIFENESIN/CODEINE 10 ML CUP PO PRN (15:45)
[2019-10-10] MEDS ORDERED: DEXTROSE 5%/0.45% SOD CHL 1,000 ML IV ONE (17:45)
--- NOTE | 2019-10-10 17:50 | Consultation ---
DATE OF CONSULTATION: 10/09/2019 HISTORY OF PRESENT ILLNESS: 74 years of age, underlying history of diabetes, end-organ damage with diabetic kidney disease on dialysis Wednesday, Wednesday, Wednesday, history of prior cholecystectomy, hypertension, anemia, chronic kidney disease, presented with nausea, vomiting, and diarrhea. He had a CT done which showed possibility of anterior colitis. He has mild splenomegaly as well. He is otherwise lying supine, in no apparent respiratory distress. Denies any shortness of breath, nausea. Has a white count of 6.9, hemoglobin 12.5. Chemistry shows sodium 135, potassium 4.8, creatinine 8.2, and BNP 779. Total bilirubin 1. LFTs relatively normal range. Lipase 7. Albumin 2.4. PAST MEDICAL HISTORY: As above plus history of duodenal ulcer, GI bleed, hyperlipidemia, coronary artery disease. SOCIAL HISTORY: Does not smoke or drink. FAMILY HISTORY: End-stage renal disease in his plus history of diabetes. ALLERGIES: NO APPARENT DRUG ALLERGIES. HOME MEDICATIONS: Not reconciled yet, but has been on: 1. Furosemide 40 mg daily. 2. Hydroxyzine p.r.n. 3. Midodrine 10 mg p.o. t.i.d. 4. Pravastatin. 5. Requip 0.5 mg tablets three times a day. 6. Flomax. The patient has been given some empiric antibiotics in the emergency room in the form of piperacillin/tazobactam for his enterocolitis. He has been currently receiving normal saline bolus. He is also on Tylenol p.r.n.. His piperacillin/tazobactam is q.6, I will change to q.12 of 3.375 g. PHYSICAL EXAMINATION: GENERAL: He is awake, alert, oriented x3, lying supine, in no apparent distress. VITAL SIGNS: Blood pressure is 108/53, pulse rate 94, afebrile. HEAD AND NECK: Cornea clear. Oral mucosa moist. LUNGS: Relatively clear. HEART: S1, S2 audible. ABDOMEN: Soft, nontender. LOWER EXTREMITIES: No edema. IMPRESSION AND PLAN: End-stage renal disease, was hypotensive earlier. Agree with saline challenge and resuscitation of volume, underlying diarrhea, enterocolitis. I will send stool for Clostridium difficile. Piperacillin/tazobactam dose has been adjusted. Consider starting Flagyl. I will arrange for dialysis. MD FARZANEH Campos/YOBANY /[id number]
--- NOTE | 2019-10-10 18:35 | Progress Note ---
DATE: SUBJECTIVE: The patient is feeling better. He is having less nausea, vomiting, and diarrhea. His Levophed has weaned off. PHYSICAL EXAMINATION: VITAL SIGNS: The blood pressure is 99/70 and saturation is 95%. HEENT: Shows no facial swelling or erythema. CARDIAC: Reveals regular rate and rhythm with normal S1 and S2. LUNGS: Auscultation of lungs reveals clear breath sounds bilaterally. There is no wheezing. ABDOMEN: Soft and nontender. There is no rebound or guarding. EXTREMITIES: Shows no leg edema or calf tenderness. There is no cyanosis or clubbing. SKIN: Shows no rashes. LABORATORY DATA: White blood cell count is 6.47 and the hemoglobin is 10.8. The platelet count is 83. IMPRESSION: 1. Viral gastroenteritis. 2. End-stage renal disease. 3. History of coronary artery disease. 4. Thrombocytopenia. PLAN: 1. Continue to observe off Levophed. 2. Stool studies are pending. 3. Continue current antibiotics. 4. Dialysis as needed. Stone Arriaga MD [facility]/MODL /[id number]
--- NOTE | 2019-10-10 18:41 | NUR ---
1320- Pt arrived from ER. Levophed drip turned off upon arrival. Pt educated to use call light for assistance. [employer] used to do admission and inform patient about using call light for help. per Dr. Tyron arriaga make NPO until Grant Rudd evaluates pt. Chest x ray ordered. Dr. Tyron Arriaga informed of low BG 65 ( pt denies any symptoms of hypoglycemia). Orders given to IVF. 1830- Pt yelling and off monitor. Primary RN and charge aide entered room and pt was sitting on floor next to bed. Pt stated he dropped his cell phone on the floor and was reaching to get it. Pt alert, oriented and responsive. Pt denies any injuries. Dr. Tyron Arriaga informed of incident. No new orders, monitor per protocol. Pt educated by RN's to use call light to assist with getting out of bed. Bed alarm set.
--- NOTE | 2019-10-10 19:30 | NUR ---
Pt's son notified of pt's fall. FLAME GOUGER Isidra dowd notified of fall as well.
[2019-10-10] MEDS: PRAVASTATIN 20 MG TAB PO SCH (21:00)
[2019-10-11] VITALS (14 sets, daily range): BP systolic 84–130; BP diastolic 50–65
[2019-10-11] MEDS: VANCOMYCIN 250MG/5ML ORAL SOLN PO SCH ×5 (04:29→23:48)
[2019-10-11] MEDS: NOREPINEPHRINE INJ 4MG/4ML 8 MG in DEXTROSE 5% 250ML 250 ML IV SCH (04:29)
[2019-10-11 05:32] LABS: BASOPHILS % 0.4 % (0.0-1.0); EOSINOPHILS # (AUTO) 0.3 (0.0-0.4); EOSINOPHILS % 3.5 % (0.0-6.0); HEMATOCRIT 30.5 % (38.2-49.6); HEMOGLOBIN 10.1 g/dL (14.0-18.0); LYMPHOCYTES # (AUTO) 0.8 (1.0-3.2); LYMPHOCYTES % 11.8 % (18.0-39.1); MEAN CORPUSCULAR HEMOGLOBIN 30.1 pg (28-32); MEAN CORPUSCULAR HGB CONC 33.1 g/dL (31-35); MEAN CORPUSCULAR VOLUME 90.8 fL (81-99); MONOCYTES # (AUTO) 0.4 (0.2-0.8); MONOCYTES % 4.9 % (4.4-11.3); NEUTROPHILS # (AUTO) 5.6 (2.1-6.9); NEUTROPHILS % 78.3 % (38.7-80.0); PLATELET COUNT 72 x10e3/uL (140-360); RED BLOOD COUNT 3.36 x10e6/uL (4.3-5.7); RED CELL DISTRIBUTION WIDTH 14.6 % (11.7-14.4)
[2019-10-11 06:00] LABS: MAGNESIUM 1.7 MG/DL (1.3-2.1); PHOSPHORUS 3.8 MG/DL (2.3-4.7)
[2019-10-11 06:17] LABS: ALBUMIN 1.7 g/dL (3.5-5.0); ALBUMIN/GLOBULIN RATIO 0.5 (0.8-2.0); ANION GAP 16.1 mmol/L (8-16); CALCIUM 7.4 mg/dL (8.4-10.2); CREATININE, SERUM 6.7 mg/dL (0.72-1.25); POTASSIUM 4.1 mmol/L (3.5-5.1)
--- NOTE | 2019-10-11 06:31 | NUR ---
Notified Eugene Barrera NP of critical glucose value 54. Orders received to recheck bedside glucose and PRN D50 if glucose <60. Order obtained for surgery consult with Dr. Morton. Notified Eugene that Dr. Arriaga and Dr. Rudd both OK with patient downgrading to medr. Eugene asked to wait 1 hr to be updated with patient info before transferring.
--- NOTE | 2019-10-11 06:41 | NUR ---
Spoke with answering service for Dr. Morton regarding new consult at 0638.
[2019-10-11] MEDS: METRONIDAZOLE 500MG/NS 100ML 100 ML IV SCH ×3 (07:00→21:29)
[2019-10-11] MEDS: DEXTROSE 50% SYRINGE 50 ML IV PRN ×2 (07:08→16:14)
--- NOTE | 2019-10-11 07:08 | NUR ---
Shift report given to Awilda ARBOLEDA. Updated RN on patient condition, critical labs, and consult for Dr. Morton has been notified.
--- NOTE | 2019-10-11 07:08 | NUR ---
Dr. Morton notified of consult.
--- NOTE | 2019-10-11 07:29 | NUR ---
Report to ROBLES Zuniga for Room 106; HD RN to bedside and setting up in 106. D50 given by pm RN and per report RN to assess BG in [address]
[2019-10-11] MEDS ORDERED: SODIUM CHLORIDE 0.9% 1000ML 2,000 ML ONE (07:41)
--- NOTE | 2019-10-11 07:55 | NUR ---
pt received to room 206; pt awake, alert, oriented X3, no signs of distress. nurse at bedside. pt in stable condition. will continue to monitor.
--- NOTE | 2019-10-11 08:49 | NUR ---
spoke with Dr. Arriaga at bedside who states okay to give pt one dose of Midodrine due to pt's low blood pressure.
[2019-10-11] MEDS: MIDODRINE HCL 5 MG TABLET PO SCH ×3 (08:58→18:12)
[2019-10-11] MEDS: FAMOTIDINE 20 MG/2 ML VIAL IV SCH ×2 (09:00→18:11)
[2019-10-11] MEDS: ROPINIROLE HCL 2 MG TAB PO SCH ×3 (09:00→21:00)
[2019-10-11] MEDS: TAMSULOSIN HCL 0.4 MG CAP PO SCH ×3 (09:00→23:00)
--- NOTE | 2019-10-11 09:37 | Diagnostic Imaging Report ---
EXAMINATION: CHEST SINGLE (PORTABLE) INDICATION: Cough COMPARISON: CT abdomen and pelvis 10/10/2019, chest radiograph 06/16/2017 FINDINGS: LINES/TUBES:EKG leads overlie the chest. LUNGS:The lungs are mildly hyperinflated. There is perihilar fullness and indistinctness of the pulmonary vasculature. PLEURA:No pleural effusion or pneumothorax. MEDIASTINUM:Cardiomediastinal silhouette is stably enlarged. BONES/SOFT TISSUES:No acute osseous injury. ABDOMEN:No free air under the diaphragm. IMPRESSION: Hyperinflated lungs. Cardiomegaly and mild pulmonary interstitial edema. Signed by: Tracy Miguel MD on 10/11/2019 9:30 AM
--- NOTE | 2019-10-11 10:34 | Consultation ---
DATE OF CONSULTATION: 10/11/2019 CHIEF COMPLAINT: Abdominal pain. HISTORY OF PRESENT ILLNESS: The patient is a 74-year-old male who is complaining of periumbilical abdominal pain, epigastric pain with nausea, vomiting, and diarrhea. He denies fever and chills. PAST MEDICAL HISTORY: Significant for coronary artery disease, history of KS in 2001, hypertension, chronic renal insufficiency on dialysis, history of duodenal ulcer and GI bleeding. PAST SURGICAL HISTORY: Positive for coronary artery stenting, angioplasty. SOCIAL HABITS: The patient denies smoking or alcohol use. REVIEW OF SYSTEMS: No chest pain, shortness of breath, cough, or fevers. PHYSICAL EXAMINATION: VITAL SIGNS: Stable. He is afebrile. GENERAL: He is awake, alert, in mild to moderate discomfort. HEENT: Sclerae nonicteric. NECK: Supple. LUNGS: Clear. HEART: Regular rate and rhythm. ABDOMEN: Mildly distended. Some guarding tenderness in the epigastrium with no rebound. EXTREMITIES: No cyanosis or edema. LABORATORY DATA: White cell count is 7, hemoglobin of 10, platelet count of 72, creatinine of 6.7. CT of the abdomen revealing possible enterocolitis. There is also evidence of atherosclerotic disease in the mesenteric vessel, particularly the SMA. CT angiogram show patency of the mesenteric vessel with evidence of enterocolitis, possible microperforation. ASSESSMENT: Abdominal pain and vomiting secondary to enterocolitis with possible microperforation on CT scan. PLAN: N.p.o., close monitoring for sign of evolving abscess formation or sepsis. Supportive care. . Elieser Morton MD DNTyron/MODTyron /[id number]
--- NOTE | 2019-10-11 11:56 | NUR ---
PROGRESS NOTE [id number]
--- NOTE | 2019-10-11 15:31 | NUR ---
DR ORTIZ ARRIBED; INFORMED DR. ORTIZ OF PT'S CULTURE RESULTS.
[2019-10-11] MEDS: MORPHINE SULFATE INJ 4 MG/ML INJ 1ML IV PRN ×2 (16:19→23:05)
[2019-10-11] MEDS: CEFEPIME 1GM/NS 0.9% 50 ML 50 ML IV SCH (18:07)
--- NOTE | 2019-10-11 19:40 | NUR ---
Assessment done.no resp.distress.on npo.bed locked and in lowest position.phone and call light within reach.instructed to call for assistance as needed.
[2019-10-11] MEDS: PRAVASTATIN 20 MG TAB PO SCH (21:00)
--- NOTE | 2019-10-11 21:45 | Progress Note ---
DATE: SUBJECTIVE: The patient still has some distention of his abdomen. He still has some abdominal pain, it is greatest in the right upper quadrant. He complains of being hungry. PHYSICAL EXAMINATION: VITAL SIGNS: The patient is afebrile. The blood pressure is 129/65. Saturation is 97%. HEENT: Shows no facial swelling or erythema. CARDIAC: Reveals regular rate and rhythm with normal S1 and S2. LUNGS: Auscultation of lungs shows decreased breath sounds at the bases. There is no wheezing. ABDOMEN: Soft and nontender. There is no rebound or guarding. He is distended. He is tender, mostly in the right upper quadrant. There is no rebound. LABORATORY DATA: White blood cell count is 7.1 and hemoglobin is 10.1. The platelet count is 72. BUN to creatinine ratio is 49 to 6.7 and the sodium is 133. IMPRESSION: 1. Microperforation of the bowel. 2. Gastroenteritis. 3. End-stage renal disease. 4. Thrombocytopenia. PLAN: 1. Continue to keep the patient n.p.o. 2. Continue antibiotics. 3. Continue fluids and dialysis as per Nephrology. Stone Arriaga MD LM/YOBANY /[id number]
--- NOTE | 2019-10-11 22:10 | NUR ---
HEALTH EDUCATION GIVEN ABOUT PROPER USE OF ICS.VERBALIZED UNDERSTANDING.
--- NOTE | 2019-10-11 22:26 | Progress Note ---
DATE: 10/11/2019 PRIMARY CARE PHYSICIAN: Jordan Alex MD CONSULTING PHYSICIANS: Include Dr. Aguilar with Infectious Disease, Dr. Elieser Morton with Surgery, Dr. Hernandez and Dr. Lucas with Nephrology, Dr. Stone Arriaga with Pulmonology, Dr. Tim Rudd with Gastroenterology. SUBJECTIVE: The patient is lying supine in bed, asleep, he is easily arousable. Rates his abdominal pain on the right side as 7-8 on a scale of 0-10. Has some chills, some dizziness, otherwise no complaints. No nausea, vomiting. He did have some nausea, vomiting yesterday. No BM today. MEDICATIONS: Reviewed. OBJECTIVE: VITAL SIGNS: Temperature 97.2, T-max 98.5, heart rate 89, blood pressure 96/56, respirations 20, oxygen saturation 97% on room air. GENERAL: Asleep, but awakens easily. LUNGS: Generally clear to auscultation. Respiratory pattern even and unlabored, breathing room air. Unable to use incentive spirometry properly. HEENT: EOMI. NECK: Supple. CARDIOVASCULAR: Regular rate and rhythm. No murmur. D5 in half-normal saline infusing at 30 mL an hour anterior peripheral IV. ABDOMEN: Distended, tender to palpation, soft. Bowel sounds are present, but hypoactive. EXTREMITIES: Without pitting edema, clubbing or cyanosis, or signs of DVT. NEUROLOGICAL: GCS 14, eye 3, verbal 5, motor 6. Nonfocal. DIAGNOSTIC STUDIES AND LABORATORY DATA: WBC 7.1, hemoglobin 10.1, hematocrit 30.5, platelets 72. Sodium 133, potassium 4.1, chloride 99, CO2 of 22, BUN 49, creatinine 6.7, estimated GFR 8, glucose 54. Fingerstick blood glucose 76 and 51, calcium 7.4, phosphorus 3.8, magnesium 1.7, total bilirubin 0.6, AST 16, ALT 11, alkaline phosphatase 65, total bilirubin 4.8, albumin 1.7. Hepatitis panel negative with hepatitis BE antibody pending. 10/07 perez virus PCR negative. Blood culture from 10/07 has shown gram-negative bacillus, awaiting final report. The other blood culture showed no growth after 48 hours. No new imaging studies. Telemetry shows sinus rhythm, heart rate 94, occasional unifocal PVC. ASSESSMENT AND PLAN: 1. Acute lower abdominal pain with enterocolitis and contained bowel perforation adjacent to small bowel. GI and Surgery are following. N.p.o. Continue antibiotics per ID, IV Flagyl, cefepime, and p.o. vancomycin. Continue pain control. Lipase within normal limits. Per note by Surgery, close monitoring for signs of evolving abscess formation or sepsis. Per Pulmonology note, continue to observe off Levophed. Orders have been entered to assess stool for Clostridium difficile toxin. The patient be taught incentive spirometry in Thai. 2. End-stage renal disease. Hemodialysis per Nephrology. 3. BPH. Continue Flomax. 4. Hyperlipidemia. Continue pravastatin. 5. Status post fall 10/10/2019, fall in ICU. Fall precautions. Physical Therapy evaluate and treat. 6. Prophylaxis: SCDs, IV Pepcid. Time spent 35 minutes. Billing code 08125. Dictated by Owen Fuentes NP MD MACKENZIE Zavala/YOBANY /[id number]
[2019-10-12] VITALS (8 sets, daily range): BP systolic 105–164; BP diastolic 58–81
--- NOTE | 2019-10-12 02:09 | NUR ---
WAS IN THE UNIT TO SEE PATIENT.
[2019-10-12] MEDS: NOREPINEPHRINE INJ 4MG/4ML 8 MG in DEXTROSE 5% 250ML 250 ML IV SCH (05:30)
[2019-10-12] MEDS: METRONIDAZOLE 500MG/NS 100ML 100 ML IV SCH ×3 (05:40→21:35)
[2019-10-12 05:48] LABS: BASOPHILS % 0.5 % (0.0-1.0); EOSINOPHILS # (AUTO) 0.2 (0.0-0.4); HEMATOCRIT 31.6 % (38.2-49.6); HEMOGLOBIN 10.2 g/dL (14.0-18.0); LYMPHOCYTES % 12.6 % (18.0-39.1); MEAN CORPUSCULAR HEMOGLOBIN 29.5 pg (28-32); MEAN CORPUSCULAR HGB CONC 32.3 g/dL (31-35); MEAN CORPUSCULAR VOLUME 91.3 fL (81-99); MONOCYTES # (AUTO) 0.6 (0.2-0.8); MONOCYTES % 7.9 % (4.4-11.3); NEUTROPHILS % 74.9 % (38.7-80.0); PLATELET COUNT 72 x10e3/uL (140-360); RED BLOOD COUNT 3.46 x10e6/uL (4.3-5.7); RED CELL DISTRIBUTION WIDTH 14.6 % (11.7-14.4)
[2019-10-12] MEDS: VANCOMYCIN 250MG/5ML ORAL SOLN PO SCH ×4 (05:56→23:59)
[2019-10-12 06:01] LABS: ALBUMIN 1.8 g/dL (3.5-5.0); ALBUMIN/GLOBULIN RATIO 0.6 (0.8-2.0); ANION GAP 13.5 mmol/L (8-16); CALCIUM 7.9 mg/dL (8.4-10.2); CREATININE, SERUM 4.93 mg/dL (0.72-1.25); MAGNESIUM 1.7 MG/DL (1.3-2.1); POTASSIUM 3.5 mmol/L (3.5-5.1)
--- NOTE | 2019-10-12 07:04 | NUR ---
Bed side shift report given to oncoming rn.stable condition.
--- NOTE | 2019-10-12 07:05 | NUR ---
BEDSIDE SHIFT REPORT RECEIVED FROM PM NURSE. PT SLEEPING, EASILY AROUSED, NO SIGNS OF DISTRESS. WILL CONTINUE TO MONITOR.
--- NOTE | 2019-10-12 07:23 | NUR ---
PT'S BLOOD SUGAR 67; PT AWAKE, ALERT, SPEAKING FULL SENTENCES, NO SIGNS OF DISTRESS. PT STILL NPO AT THIS TIME. WILL CONTINUE TO MONITOR.
--- NOTE | 2019-10-12 08:12 | Progress Note ---
DATE: SUBJECTIVE: The patient is seen and evaluated. Available labs and notes reviewed. Discussed with the patient, dialysis in his room, complaint about lower abdominal pain, mostly toward the suprapubic area. No nausea, vomiting, fever, chills, chest pain, shortness of breath, cough, or diarrhea. OBJECTIVE: VITAL SIGNS: Temperature 97.2, pulse is 89, respirations 20, and blood pressure 96/56. GENERAL: Alert and oriented, clinically seems better. No sign of congestion today, dialysis in his room, seems to be tolerating okay. CV: S1 and S2. CHEST: Equal expansion, clear to auscultation. No acute distress. ABDOMEN: Soft, obese with suprapubic area discomfort. HEENT: Moist. No pallor. No JVD. EXTREMITIES: Weak, no acute finding. MEDICATIONS: Medication list reviewed. As far as Infectious Disease point of view, the patient is on cefepime IV, vancomycin p.o., and Flagyl IV. LABORATORY STUDIES: White count of 7.11, hemoglobin 10.1, and platelets 72, dropping from 104 to 83 and now 72. Sodium 133, potassium 4.1, creatinine 6.7. The patient is on dialysis. SEROLOGY: Coronavirus PCR from 10/08/2019 is negative and not detected. Hepatitis panel is pending. RADIOLOGY STUDIES: No new radiology studies available. ASSESSMENT AND PLAN: 1. Enterocolitis with concern for Clostridium difficile versus ischemic process. CTA of the abdomen showed extensive abdominal aortic atherosclerosis, identifies our findings that can be seen with enterocolitis with concern of contained perforation. 2. End-stage renal disease. 3. Hypertension. 4. Atherosclerotic disease. 5. Obesity. 6. Debility. The patient is on antibiotics as mentioned above. I will discuss with Dr. Aguilar in detail. Please refer to chart for further information. Dictated by Nathaniel Stevens PA-C (Al) Kyree Aguilar MD /MODL /[id number]
[2019-10-12] MEDS: TAMSULOSIN HCL 0.4 MG CAP PO SCH ×2 (08:20→21:05)
[2019-10-12] MEDS: MIDODRINE HCL 5 MG TABLET PO SCH ×3 (08:20→18:00)
[2019-10-12] MEDS: ROPINIROLE HCL 2 MG TAB PO SCH ×3 (08:24→21:05)
[2019-10-12] MEDS: FAMOTIDINE 20 MG/2 ML VIAL IV SCH ×2 (08:25→18:06)
--- NOTE | 2019-10-12 08:39 | NUR ---
Dr. Ursula Lucas at bedside, noted abdominal distention. Dr Lucas spoke with Dr. Morton via cell phone. He states Dr. Morton will take pt to OR today.
--- NOTE | 2019-10-12 09:48 | Progress Note ---
DATE: Infectious Disease SUBJECTIVE: The patient is seen and evaluated. Available labs and notes reviewed. Discussed with the nurse. REVIEW OF SYSTEMS: Remains in abdominal discomfort, however, no nausea, no vomiting, no fever, no chills. No chest pain. No shortness of breath. The patient is n.p.o. OBJECTIVE: VITAL SIGNS: Temperature 99.5, pulse is 82, respirations 18, and blood pressure 122/63. GENERAL: Alert and oriented, no acute distress. CV: S1 and S2. CHEST: Equal expansion. Clear to auscultation. No acute distress. ABDOMEN: Seems to be little bit more tender now that the pain has moved up in the upper part of the abdomen as it was on the lower part of the abdomen yesterday. EXTREMITIES: Weak and moves all. HEENT: Moist. No pallor. No JVD. MEDICATIONS: Medication list reviewed. As far as Infectious Disease point of view, patient is on cefepime and Flagyl IV and vancomycin p.o. LABORATORY STUDIES: White count of 7.96, hemoglobin 10.2, platelets 72. Sodium 137, potassium 3.5, creatinine 4.93. Coronavirus PCR is not detected on 10/08/2019. Hepatitis B panel negative so far. MICROBIOLOGY: Blood culture one set showed gram-negative bacilli with identification and sensitivity pending and the other set of blood culture is clean. RADIOLOGY STUDIES: No new radiology studies available. ASSESSMENT AND PLAN: 1. Enterocolitis. 2. Concerned of perforated gut. 3. End-stage renal disease. 4. Hypertension. 5. Atherosclerotic disease. 6. Obesity. 7. Debility. 8. Spoke with renal MD as he has spoken with General Surgery and primary plan is for surgery today. We continue with antibiotics and follow up with the blood culture, identification and sensitivity. Further management of this patient is based on daily findings on laboratory and physical examination. Patient is growing a low-grade temperature as mentioned above with a T-max of 99.5 with white counts within normal limit. Dictated by Nathaniel Stevens PA-C (Al) Kyree Aguilar MD /MODL /[id number]
[2019-10-12] MEDS ORDERED: DIATRIZOATE MEGL/DIATRIZOA SOD 30 ML BTL PO ONE (10:49)
[2019-10-12] MEDS ORDERED: IOPAMIDOL 370 MG/ML 200 ML INFUS..BTL INJ ONE (10:49)
[2019-10-12] MEDS ORDERED: SODIUM CHLORIDE 0.9% 50ML 50 ML ONE (10:49)
[2019-10-12] MEDS: ONDANSETRON HCL INJ 2MG/ML 2ML 2 MG/ML VIAL IV PRN (11:42)
--- NOTE | 2019-10-12 14:37 | Diagnostic Imaging Report ---
EXAM: CT Abdomen and Pelvis WITH intravenous contrast INDICATION: Abdominal perforation COMPARISON: CT abdomen and pelvis of 10/10/2019 TECHNIQUE: Abdomen and pelvis were scanned utilizing a multidetector helical scanner from the lung base to the pubic symphysis after administration of IV contrast. Coronal and sagittal reformations were obtained. Routine protocol was performed. Scan was performed during portal venous phase. IV CONTRAST: 100mL of Isovue 370 ORAL CONTRAST: Gastrografin RADIATION DOSE: Total DLP: 622.3 mGy*cm Dose modulation, iterative reconstruction, and/or weight based adjustment of the mA/kV was utilized to reduce the radiation dose to as low as reasonably achievable. FINDINGS: LOWER THORAX: Bibasilar dependent subsegmental atelectasis. Trace bilateral pleural effusions. HEPATOBILIARY: No focal liver lesion. Mild biliary ductal dilation status post cholecystectomy, likely due to reservoir effect. SPLEEN: No splenomegaly. PANCREAS: No focal masses or ductal dilatation. ADRENALS: No adrenal nodules. KIDNEYS/URETERS: Unchanged bilateral renal cysts and atrophic appearance of kidneys. PELVIC ORGANS/BLADDER: Unremarkable. PERITONEUM / RETROPERITONEUM: Again seen are multiple areas of apparently extraluminal fluid/air. The largest is in the mid abdomen (image 53) and two smaller areas are in the left upper quadrant (image 36) and left lower quadrant (image 61). There is no associated extravasation of oral contrast. The left upper quadrant pocket of air appears slightly larger compared to 10/10/2019 and the other two foci appear essentially unchanged. LYMPH NODES: No lymphadenopathy. VESSELS: Diffuse atherosclerotic calcifications of the nonaneurysmal abdominal aorta and major branches. GI TRACT: Multifocal wall thickening of small bowel in the abdomen at the previously described areas adjacent to suspected extraluminal collections of air/fluid. BONES AND SOFT TISSUES: No acute osseous injury. IMPRESSION: Redemonstration of multiple areas of apparently extraluminal fluid/air. The largest is in the mid abdomen (image 53) and two smaller areas are in the left upper quadrant (image 36) and left lower quadrant (image 61). There is no associated extravasation of oral contrast. The left upper quadrant pocket of air appears slightly larger compared to 10/10/2019 and the other two foci appear essentially unchanged. Signed by: Tracy Miguel MD on 10/12/2019 2:34 PM
--- NOTE | 2019-10-12 15:55 | NUR ---
SPOKE WITH DR. MARTIN WHO STATES PT CAN HAVE WATER AND ICE CHIPS UNTIL MIDNIGHT PT WILL NEED SURGERY IN THE AM.
[2019-10-12] MEDS: CEFEPIME 1GM/NS 0.9% 50 ML 50 ML IV SCH (18:06)
--- NOTE | 2019-10-12 19:05 | NUR ---
RECEIVED THE PATIENT IN REPORT.AAOX3.WEAK.BED LOCKED AND IN LOWEST POSITION.PHONE AND CALL LIGHT WITHIN REACH.INSTRUCTED TO CALL FOR ASSISTANCE NEEDED.ABDOMEN IS DISTENDED.
[2019-10-12] MEDS: PRAVASTATIN 20 MG TAB PO SCH (21:05)
--- NOTE | 2019-10-12 23:06 | Progress Note ---
DATE: 10/12/2019 SUBJECTIVE: The patient is lying supine in bed. He complains of weakness and being hungry. His abdominal pain is rated 7-8 on a scale of 0-10. He had a small BM today. Still having some nausea, events overnight. Dr. Lucas saw the patient this morning and spoke with Dr. Morton on the phone directly regarding distended abdomen and possible need for surgery. OBJECTIVE: VITAL SIGNS: Temperature 99.5, which is also T-max. Heart rate 82, blood pressure 122/63, respirations 18, and oxygen saturation 93% on room air. Intake and output, 500 mL in and 2500 mL out. GENERAL: Supine, awake, alert. LUNGS: Generally clear to auscultation. RESPIRATORY: Pattern even and nonlabored. HEENT: EOMI. NECK: Supple. CARDIOVASCULAR: Regular rate and rhythm. No murmur. D5 in half-normal saline and infusing at 100 mL an hour into a peripheral IV. ABDOMEN: Distended, tender to palpation, soft. Bowel sounds present. EXTREMITIES: No pitting edema. No clubbing, cyanosis, or signs of DVT. NEUROLOGIC: GCS 15. Nonfocal. MEDICATIONS: Reviewed. LABORATORY DATA: WBC 7.96, hemoglobin 10.2, hematocrit 31.6, platelets 72. Sodium 137, potassium 3.5, chloride 101, CO2 of 26, BUN 25, creatinine 4.93, GFR 12, glucose 65. Fingerstick blood glucose levels 67, 63, 65. Calcium 7.9, magnesium 1.7, total bilirubin 0.6, AST 15, ALT 9, alkaline phosphatase 80, total bilirubin 4.8, albumin 1.8. Clostridium difficile toxin A and B pending. IMAGING STUDIES: CT of the abdomen and pelvis completed today. Re-demonstration of multiple areas of apparently extraluminal fluid/air, the largest is in the mid abdomen and two small areas are in the left upper quadrant and left lower quadrant. There is no associated extravasation of oral contrast. The left upper quadrant pocket of air appear slightly larger compared to 10/10/2019, and the other two foci appears essentially unchanged. ASSESSMENT/PLAN: 1. Acute lower abdominal pain with enterocolitis and contained bowel perforation. GI surgery, continue to follow. The patient has been taking sips of water, has been explained to the patient that he will be n.p.o. after midnight for possible surgery in the morning by Dr. Morton. Continue IV Flagyl and IV cefepime and p.o. vancomycin per ID. Continue pain control. Perforation sealed off for surgery. May need diagnostic laparotomy if his condition worsens. Monitor for signs of evolving abscess formation or sepsis. Awaiting results of stool for Clostridium difficile toxin. 2. End-stage renal disease. Hemodialysis per Nephrology. 3. BPH. Continue Flomax. 4. Hyperlipidemia. Continue pravastatin. 5. Status post fall 10/10/2019 in ICU. Maintain fall precautions. PT eval and treat. 6. Prophylaxis IV Pepcid and SCDs. Time spent 35 minutes. Billing code 12475. Dictated by Owen Fuentes, YESENIA Isaías Randhawa MD [facility]/MODL /[id number]
[2019-10-13] VITALS (7 sets, daily range): BP systolic 96–122; BP diastolic 55–68
--- NOTE | 2019-10-13 01:31 | NUR ---
RIGHT FEMORAL DRESSING CHANGED.ON NPO.HAD A SMALL AMOUNT OF BOWEL MOVEMENT.STOOL SENT TO THE LAB.
[2019-10-13] MEDS: NOREPINEPHRINE INJ 4MG/4ML 8 MG in DEXTROSE 5% 250ML 250 ML IV SCH (05:30)
[2019-10-13 05:37] LABS: BASOPHILS % 0.3 % (0.0-1.0); EOSINOPHILS # (AUTO) 0.3 (0.0-0.4); EOSINOPHILS % 2.6 % (0.0-6.0); HEMOGLOBIN 10.5 g/dL (14.0-18.0); LYMPHOCYTES # (AUTO) 1.1 (1.0-3.2); LYMPHOCYTES % 11.7 % (18.0-39.1); MEAN CORPUSCULAR HEMOGLOBIN 29.4 pg (28-32); MEAN CORPUSCULAR HGB CONC 31.8 g/dL (31-35); MEAN CORPUSCULAR VOLUME 92.4 fL (81-99); MONOCYTES # (AUTO) 0.7 (0.2-0.8); MONOCYTES % 7.8 % (4.4-11.3); NEUTROPHILS # (AUTO) 7.2 (2.1-6.9); NEUTROPHILS % 75.5 % (38.7-80.0); PLATELET COUNT 74 x10e3/uL (140-360); RED BLOOD COUNT 3.57 x10e6/uL (4.3-5.7); RED CELL DISTRIBUTION WIDTH 14.5 % (11.7-14.4)
[2019-10-13 05:39] LABS: INR 1.05; PROTHROMBIN TIME 14.3 seconds (11.9-14.5)
[2019-10-13 05:40] LABS: PARTIAL THROMBOPLASTIN TIME 35.6 seconds (23.8-35.5)
[2019-10-13 05:55] LABS: CALCIUM 8.2 mg/dL (8.4-10.2); CREATININE, SERUM 6.45 mg/dL (0.72-1.25); MAGNESIUM 1.8 MG/DL (1.3-2.1); PHOSPHORUS 4.4 MG/DL (2.3-4.7)
[2019-10-13] MEDS: METRONIDAZOLE 500MG/NS 100ML 100 ML IV SCH ×3 (05:57→21:11)
[2019-10-13] MEDS: VANCOMYCIN 250MG/5ML ORAL SOLN PO SCH ×4 (06:00→23:09)
[2019-10-13] MEDS: DEXTROSE 50% SYRINGE 50 ML IV PRN (06:19)
--- NOTE | 2019-10-13 06:19 | NUR ---
BLOOD SUGAR IS 57.50% DEXTROSE ADMINISTERED.KEEP MONITOR THE PATIENT.
--- NOTE | 2019-10-13 06:46 | NUR ---
Blood sugar checked and noted 135.
--- NOTE | 2019-10-13 07:00 | NUR ---
BED SIDE SHIFT REPORT GIVEN TO ONCOMING RN.STABLE CONDITION.
[2019-10-13] MEDS: FAMOTIDINE 20 MG/2 ML VIAL IV SCH ×2 (08:11→16:41)
[2019-10-13] MEDS: ROPINIROLE HCL 2 MG TAB PO SCH ×3 (08:11→20:45)
[2019-10-13] MEDS: TAMSULOSIN HCL 0.4 MG CAP PO SCH ×2 (08:11→20:44)
[2019-10-13] MEDS: MIDODRINE HCL 5 MG TABLET PO SCH ×3 (08:11→16:41)
[2019-10-13] MEDS ORDERED: SODIUM CHLORIDE 0.9% 1000ML 2,000 ML ONE (08:16)
--- NOTE | 2019-10-13 10:08 | Progress Note ---
DATE: SUBJECTIVE: The patient is seen and evaluated. Available labs and notes reviewed. Discussed with the nurse, dialysis in the room. REVIEW OF SYSTEMS: Has no bowel movement. Passes gas and abdominal discomfort. No significant change. No nausea, vomiting, fever, chills, chest pain, or shortness of breath. OBJECTIVE: VITAL SIGNS: Temperature 97.4, pulse is 87, respirations 16, blood pressure 110/58. GENERAL: Alert, oriented, in bed. No acute distress. CV: S1-S2. CHEST: Equal expansion, clear to auscultation. No acute distress. ABDOMEN: Discomfort and positive bowel sounds and obese. HEENT: Moist. No pallor. No JVD. EXTREMITIES: Moves all. MEDICATIONS: Reviewed. As far as Infectious Disease point of view, the patient is on: 1. Vancomycin p.o. 2. Cefepime. 3. Flagyl IV. LABORATORY STUDIES: White count of 9.51, hemoglobin 10.5, platelets of 74, improved from 72. Sodium 134, potassium 4, creatinine 6.45. The patient is on dialysis. SEROLOGY: C diff pending. Coronavirus PCR 10/08/2019, not detected. Hepatitis B panel negative. MICROBIOLOGY: Blood culture, E coli one and another showed blood culture is negative 72 hours. RADIOLOGY STUDIES: CT of abdomen and pelvis recheck showed redemonstration of multiple areas of apparently extraluminal air/fluid. The largest is in the mid abdomen and two smaller areas are in the left upper quadrant and the left lower quadrant. There is an associated extravasation of oral contrast. The left upper quadrant pocket of air appears slightly larger compared to 10/10/2019, and the other two foci appear essentially unchanged. ASSESSMENT AND PLAN: 1. perforation of small bowel. 2. CT as above. 3. End-stage renal disease. 4. Hypertension. 5. Atherosclerotic disease. 6. Obesity. 7. Debility. 8. Abdominal discomfort. No surgery plan. As of now, the patient started on oral feeding with clear liquids per my discussion with the nurse from General Surgery. Continue with antibiotics and monitor patient clinically. Follow with the labs. Discussed with Dr. Aguilar in details. Please refer to chart for more information. Dictated by Nathaniel Stevens PA-C (Al) MD CAROLINA Cleveland/YOBANY /[id number]
[2019-10-13] MEDS: ONDANSETRON HCL INJ 2MG/ML 2ML 2 MG/ML VIAL IV PRN (11:19)
--- NOTE | 2019-10-13 11:19 | NUR ---
patient vomited after getting some juice and water. medicated with zofran. will notify Dr. Morton.
--- NOTE | 2019-10-13 12:30 | NUR ---
dialysis removed 2L today. patient doing well at this time.
[2019-10-13] MEDS: MORPHINE SULFATE INJ 4 MG/ML INJ 1ML IV PRN (13:29)
--- NOTE | 2019-10-13 15:00 | NUR ---
patient complaining of pain, seems confused and hallucinating. medicated for pain. attending and family notified of change in mental status. will notify Dr. Morton.
--- NOTE | 2019-10-13 15:30 | NUR ---
Dr. Morton returned page. made NPO for surgery today. attending STATE WILDLIFE OFFICER, Owen, notified of fever of 101.0.
[2019-10-13] MEDS: CEFEPIME 1GM/NS 0.9% 50 ML 50 ML IV SCH (16:41)
--- NOTE | 2019-10-13 18:34 | NUR ---
spoke at length with patient's son Gume and daughter Catina about patient's condition today. Catina will be consenting patient for surgery when ready. Her contact number is [phone]
[2019-10-13] MEDS: PRAVASTATIN 20 MG TAB PO SCH (20:45)
--- NOTE | 2019-10-13 21:10 | NUR ---
PATIENT RESTING IN BED IN STABLE CONDITION, NO SIGNS OF RESPIRATORY DISTRESS NOTED. IV ANTIBIOTICS ARE RUNNING AT ORDERED RATE AND PATIENT VOICES NO PAIN AT THIS TIME. PATIENT IS NPO FOR PROCEDURE IN THE MORNING AND HAS BEEN ASSESSED BY PHYSICIAN. BED IS IN LOWEST POSITION, BOTH SIDE RAILS ARE UP, CALL LIGHT IS WITHIN EASY REACH, WILL CONTINUE TO MONITOR.
--- NOTE | 2019-10-13 22:20 | Progress Note ---
DATE: 10/13/2019 SUBJECTIVE: The patient is lying supine in bed with his head turned all the way to the right. He is asleep. He is arousable, more altered than yesterday. However, he is able to answer correctly to person, place, and time. His nurse states that his abdominal pain was much more significant around 1 p.m. At 1541, his fever was 101.1. He was unable to ambulate today, whereas yesterday, he ambulated about 100 feet. MEDICATIONS: Reviewed. OBJECTIVE: VITAL SIGNS: Temperature 97.2, heart rate 53, blood pressure 96/68, respirations 18, and oxygen saturation 92% on room air. GENERAL: Supine, asleep, easily arousable. LUNGS: Clear. Respirations unlabored. HEENT: EOMI. NECK: Supple. CARDIOVASCULAR: Regular rate and rhythm. No murmur. ABDOMEN: Bowel sounds positive. Distended. Tender to gentle palpation. Soft. No guarding. EXTREMITIES: No pitting edema, clubbing, cyanosis, or signs of DVT. NEUROLOGIC: GCS 14, eye 3, verbal 5, motor 6. LABORATORY DATA: WBCs 9.51, hemoglobin 10.5, hematocrit 33, platelets 74. PT 14.3, INR 1.05, PTT 35.6. Sodium 134, potassium 4.0, chloride 100, CO2 of 22, BUN 38, creatinine 6.45, estimated GFR 8, glucose 57. Fingerstick blood glucose levels 101, 65. Calcium 8.2, phosphorus 4.4, magnesium 1.8. On 10/07, blood culture preliminary report shows pansensitive E coli. No new imaging today. ASSESSMENT/PLAN: 1. Acute lower abdominal pain with enterocolitis and contained bowel perforation. GI and Surgery, and Infectious Disease continue to follow. With new developments, the patient may need surgery today. Dr. Morton is currently in another surgery and will evaluate the patient. Continue IV Flagyl and cefepime as well as p.o. vancomycin per ID. He may need diagnostic laparotomy today versus tomorrow to monitor for signs of evolving abscess formation. 2. Sepsis. WBC 9.51 today. He is febrile. Clostridium difficile toxin negative. 3. End-stage renal disease. Hemodialysis per Nephrology. 4. Benign prostatic hypertrophy. Continue Flomax. 5. Hyperlipidemia. Continue pravastatin. 6. Status post fall 10/10/2019 in ICU. Maintain fall precautions. Physical therapy to follow. 7. Prophylaxis IV Pepcid and SCDs. Time spent 35 minutes. Billing code [id number]. Dictated by Owen uFentes, ODD BUNDLE WORKER MD MACKENZIE Zavala/CALINL /[id number]
[2019-10-14] VITALS (8 sets, daily range): BP systolic 88–126; BP diastolic 47–67
[2019-10-14] MEDS: VANCOMYCIN 250MG/5ML ORAL SOLN PO SCH ×4 (04:26→23:48)
[2019-10-14] MEDS: METRONIDAZOLE 500MG/NS 100ML 100 ML IV SCH ×3 (05:24→21:29)
[2019-10-14 05:46] LABS: BASOPHILS # (AUTO) 0.1 (0.0-0.1); BASOPHILS % 0.5 % (0.0-1.0); EOSINOPHILS # (AUTO) 0.2 (0.0-0.4); HEMATOCRIT 32.4 % (38.2-49.6); HEMOGLOBIN 10.3 g/dL (14.0-18.0); LYMPHOCYTES # (AUTO) 0.9 (1.0-3.2); MEAN CORPUSCULAR HEMOGLOBIN 29.7 pg (28-32); MEAN CORPUSCULAR HGB CONC 31.8 g/dL (31-35); MEAN CORPUSCULAR VOLUME 93.4 fL (81-99); MONOCYTES # (AUTO) 0.6 (0.2-0.8); NEUTROPHILS # (AUTO) 8.3 (2.1-6.9); NEUTROPHILS % 80.6 % (38.7-80.0); PLATELET COUNT 106 x10e3/uL (140-360); RED BLOOD COUNT 3.47 x10e6/uL (4.3-5.7); RED CELL DISTRIBUTION WIDTH 14.6 % (11.7-14.4)
[2019-10-14 06:11] LABS: ALBUMIN 1.7 g/dL (3.5-5.0); ALBUMIN/GLOBULIN RATIO 0.5 (0.8-2.0); CALCIUM 8.3 mg/dL (8.4-10.2); CREATININE, SERUM 5.08 mg/dL (0.72-1.25); MAGNESIUM 1.8 MG/DL (1.3-2.1)
[2019-10-14] MEDS: ONDANSETRON HCL INJ 2MG/ML 2ML 2 MG/ML VIAL IV PRN ×2 (07:17→21:53)
[2019-10-14] MEDS: TAMSULOSIN HCL 0.4 MG CAP PO SCH ×2 (07:17→20:23)
[2019-10-14] MEDS: MIDODRINE HCL 5 MG TABLET PO SCH ×4 (07:17→20:45)
[2019-10-14] MEDS: MORPHINE SULFATE INJ 4 MG/ML INJ 1ML IV PRN ×2 (07:17→21:52)
[2019-10-14] MEDS: ROPINIROLE HCL 2 MG TAB PO SCH ×3 (07:18→20:25)
[2019-10-14] MEDS ORDERED: SODIUM CHLORIDE 0.9% 500ML 500 ML ONE (08:59)
[2019-10-14] MEDS: FAMOTIDINE 20 MG/2 ML VIAL IV SCH ×2 (09:00→16:22)
[2019-10-14] MEDS ORDERED: SUGAMMADEX SODIUM 200 MG/2 ML VIAL IV ONE (10:41)
[2019-10-14] MEDS: SODIUM CHLORIDE 0.9% 250ML IRRIG IR SCH ×3 (11:15→20:44)
[2019-10-14] MEDS ORDERED: HYDROMORPHONE 1MG/1ML INJ ONE ×2 (11:15→11:31)
--- NOTE | 2019-10-14 13:55 | NUR ---
pt was off the floor at this time for surgery..f/u on 10-16-19 Addendum: 10/14/19 at 1356 by Aman Alejandra PTA Amended: Links added.
--- NOTE | 2019-10-14 15:09 | NUR ---
Nutrition Screen Note RD Recommendation for Physician: - Recommend advancing to GI soft/renal diet when medically appropriate - If diet is unable to be advanced, consider alternative means of nutrition Plan of Care: RD following, monitoring for tolerance and adequacy Nutrition reason for involvement: NPO/Clear Liquid Diet > 4 days and Length of stay Primary Diagnose(s): enterocolitis, ESRD PMH: coronary artery disease, history of VT in 2001, hypertension, chronic renal insufficiency on dialysis, history of duodenal ulcer and GI bleeding Ht: 68 in Wt:183 lb BMI: 27.8 kg/m2 IBW:[address] Assessment: (10/14/19) Chart reviewed. Labs and meds reviewed. Pt is a 74 year old male admitted with enterocolitis and ESRD. Pt had an exploratory laparotomy with colon resection today. Pt was sleeping at time of visit; therefore, unable to obtain nutrition history from patient. Per weight history in chart, pt weighed 183 lbs in May 2017; therefore, no weight loss is evident. Will continue to monitor Current Diet: NPO Malnutrition Evaluation (10/14/19) Unable to fully assess. Will re-evaluate at follow-up as appropriate. Energy intake: <50% of estimated energy requirements for 5 days Weight loss: No weight loss is indicated per weight history in chart Fat loss: unable to evaluate Muscle loss: unable to evaluate Supporting Evidence: Fluid accumulation: no edema per MD note Functional Status: unable to evaluate Diet Education Needs Assessment: Diet education not indicated at this time. Pt is on a temporary/transition diet. Nutrition Care Level: moderate Signed: Valery Berkowitz RD, SAMMY Addendum: 10/14/19 at 1515 by Valery MCCRARY Correction: pt had an exploratory laparotomy with multiple intestinal resections today per chart
[2019-10-14] MEDS: DEXTROSE 5%/0.9% SOD CHL 1,000 ML IV SCH (16:20)
[2019-10-14] MEDS: CEFEPIME 1GM/NS 0.9% 50 ML 50 ML IV SCH (16:22)
[2019-10-14] MEDS ORDERED: PROPOFOL IV EMULSION 10 MG/ML 20 ML VIAL ONE (17:14)
[2019-10-14] MEDS ORDERED: LIDOCAINE HCL 2% LOCAL INJ 5 ML SDV VIAL INJ ONE (17:14)
[2019-10-14] MEDS ORDERED: DESFLURANE 240 ML BTL INH ONE (17:14)
[2019-10-14] MEDS ORDERED: ROCURONIUM BROMIDE 10 MG/ML 5ML VIAL IV ONE (17:14)
[2019-10-14] MEDS ORDERED: ESMOLOL HCL 100MG/10ML 10 MG/ML VIAL ONE (17:14)
[2019-10-14] MEDS ORDERED: FENTANYL CITRATE/PF 100MCG/2 ML INJ ONE (17:35)
--- NOTE | 2019-10-14 18:53 | Operative Report ---
DATE OF PROCEDURE: 10/14/2019 SURGEON: Elieser Morton MD PREOPERATIVE DIAGNOSIS: Perforated small intestine. POSTOPERATIVE DIAGNOSIS: Multiple perforated intestine. OPERATIVE PROCEDURE: Exploratory laparotomy, multiple segmental jejunal resection. AEROSPACE MECHANIC: None. ANESTHESIA: General, Dr. Solomon. INDICATION: A 74-year-old male with history of abdominal pain with CT scan showing evidence of possible perforation. The patient's family consented for exploratory laparotomy resection. PROCEDURE FINDING: Multiple perforated segment of jejunum with localized abscess. DESCRIPTION OF PROCEDURE: The patient was brought to the OR, intubated. Abdomen prepped and draped in sterile fashion. An upper midline incision is made, entering through the linea alba. Intraperitoneal examination revealed phlegmon in the mid abdomen, involving loops of small bowel. Upon breaking up of the phlegmon, the omentum, and loops of bowel that revealed localized perforation on the mesenteric aspect of the jejunum. There were two of these perforated sites, approximately 30 cm apart. Segmental resection was carried down, taking the jejunal segment approximately 10 cm in length using NEELAM stapler and the LigaSure for the mesentery. End-to-end staple anastomosis was carried out for both resection of site, using NEELAM stapler and TL60 instrument. The mesentery defect to the anastomosis was closed with interrupted 3-0 silk. Operative field irrigated with copious saline solution. Hemostasis achieved. The abdomen was then closed with running #1 PDS and 0 Vicryl. Skin closed with ros. The patient then extubated and transported to recovery room in guarded condition. BLOOD LOSS: 50 mL. Elieser Morton MD DNL/MODL /[id number]
[2019-10-14] MEDS: PRAVASTATIN 20 MG TAB PO SCH (20:24)
--- NOTE | 2019-10-14 21:45 | NUR ---
PATIENT RESTING IN BED IN STABLE CONDITION, NO SIGNS OF DISTRESS NOTED. IV ANTIBIOTICS ARE RUNNING AT ORDERED RATE AND PATIENT VOICES PAIN AT A LEVEL OF 10 AND WAS MEDICATED ORDERED. PATIENT PREVIOUSLY HAD PROCEDURE, DRESSING IS CLEAN DRY, AND INTACT. NG TUBE TO RIGHT NARE IS PATENT AND INTACT. WHEEZING NOTED AND INSTRUCTED THE PATIENT ON THE USE OF INCENTIVE SPIROMETER, PATIENT USED CORRECTLY 10 TIMES WITHIN THE HOUR.BED IS IN LOWEST POSITION, BOTH SIDE RAILS ARE UP, CALL LIGHT IS WITHIN EASY REACH, WILL CONTINUE TO MONITOR.
[2019-10-15] VITALS (7 sets, daily range): BP systolic 104–110; BP diastolic 58–66
[2019-10-15] MEDS: SODIUM CHLORIDE 0.9% 250ML IRRIG IR SCH ×7 (00:37→22:38)
[2019-10-15] MEDS: MORPHINE SULFATE INJ 4 MG/ML INJ 1ML IV PRN ×3 (02:06→22:38)
[2019-10-15] MEDS: ONDANSETRON HCL INJ 2MG/ML 2ML 2 MG/ML VIAL IV PRN ×3 (02:06→22:38)
[2019-10-15] MEDS: VANCOMYCIN 250MG/5ML ORAL SOLN PO SCH ×4 (05:15→23:29)
[2019-10-15] MEDS: METRONIDAZOLE 500MG/NS 100ML 100 ML IV SCH ×3 (05:21→22:38)
[2019-10-15 05:38] LABS: BASOPHILS # (AUTO) 0.1 (0.0-0.1); BASOPHILS % 0.5 % (0.0-1.0); EOSINOPHILS # (AUTO) 0.3 (0.0-0.4); EOSINOPHILS % 2.9 % (0.0-6.0); HEMATOCRIT 35.4 % (38.2-49.6); HEMOGLOBIN 10.8 g/dL (14.0-18.0); LYMPHOCYTES # (AUTO) 1.2 (1.0-3.2); LYMPHOCYTES % 10.8 % (18.0-39.1); MEAN CORPUSCULAR HEMOGLOBIN 29.3 pg (28-32); MEAN CORPUSCULAR HGB CONC 30.5 g/dL (31-35); MEAN CORPUSCULAR VOLUME 95.9 fL (81-99); MONOCYTES # (AUTO) 0.7 (0.2-0.8); MONOCYTES % 6.5 % (4.4-11.3); NEUTROPHILS # (AUTO) 8.4 (2.1-6.9); NEUTROPHILS % 77.5 % (38.7-80.0); PLATELET COUNT 115 x10e3/uL (140-360); RED BLOOD COUNT 3.69 x10e6/uL (4.3-5.7); RED CELL DISTRIBUTION WIDTH 14.4 % (11.7-14.4)
[2019-10-15 06:06] LABS: ALBUMIN 1.6 g/dL (3.5-5.0); ALBUMIN/GLOBULIN RATIO 0.5 (0.8-2.0); ANION GAP 16.4 mmol/L (8-16); CALCIUM 8.1 mg/dL (8.4-10.2); CREATININE, SERUM 7.07 mg/dL (0.72-1.25); MAGNESIUM 1.8 MG/DL (1.3-2.1); POTASSIUM 4.4 mmol/L (3.5-5.1)
[2019-10-15] MEDS: MIDODRINE HCL 5 MG TABLET PO SCH ×3 (07:59→16:50)
[2019-10-15] MEDS: FAMOTIDINE 20 MG/2 ML VIAL IV SCH ×2 (07:59→16:50)
[2019-10-15] MEDS: ROPINIROLE HCL 2 MG TAB PO SCH ×3 (07:59→20:18)
[2019-10-15] MEDS: TAMSULOSIN HCL 0.4 MG CAP PO SCH ×2 (07:59→20:18)
[2019-10-15] MEDS: DEXTROSE 5%/0.9% SOD CHL 1,000 ML IV SCH (12:23)
[2019-10-15] MEDS: CEFEPIME 1GM/NS 0.9% 50 ML 50 ML IV SCH (16:17)
--- NOTE | 2019-10-15 17:13 | Progress Note ---
DATE: SUBJECTIVE: Mr. Rosario remains in bed comfortably, having some abdominal discomfort. The patient underwent exploratory laparotomy, multiple segmental jejunal resection. The patient currently lying in bed comfortably. PHYSICAL EXAMINATION: GENERAL: Alert, follows command, does not seem in acute distress. VITAL SIGNS: Stable, afebrile. HEENT: He is not icteric. NECK: Supple. CHEST: Clear bilateral. HEART: S1, S2. No S3, S4 or murmur. ABDOMEN: Soft. IMPRESSION: 1. Status post surgery, status post resection of multiple area of small intestine, currently stable. Continue cefepime. Continue Flagyl. 2. End-stage renal disease. 3. Hypertension from atherosclerotic disease. 4. Debility. 5. Anemia of chronic disease. 6. Recheck CBC. Recheck Chem panel. Further recommendations to follow. MD KEYONA [place]/YOBANY /[id number]
--- NOTE | 2019-10-15 18:53 | Progress Note ---
DATE: SUBJECTIVE: The patient went to the operating room yesterday. He has segmental jejunal resection. He still has an NG tube in place. His pain is controlled with morphine. PHYSICAL EXAMINATION: VITAL SIGNS: Stable. HEENT: Shows no facial swelling or erythema. CARDIAC: Reveals regular rate and rhythm with normal S1 and S2. LUNGS: Auscultation of the lungs reveals decreased breath sounds at the bases. There is no wheezing. ABDOMEN: Soft. There is some mild distention. There is no rebound or guarding. EXTREMITIES: There is no leg edema. SKIN: Shows no rashes. LABORATORY DATA: White blood cell count is 10.7 and hemoglobin is 10.8. The platelet count is 115. The BUN to creatinine ratio is 31 to 7.07. Other electrolytes are within normal limits. IMPRESSION: 1. Perforated jejunum and localized abscess. The patient is status post resection. 2. Chronic renal failure. 3. Benign prostatic hypertrophy. PLAN: 1. Continue pain control. 2. Continue antibiotics. 3. Wound care. 4. Remove NG tube when okay with General Surgery. Stone Arriaga MD [facility]/MODL /[id number]
[2019-10-15] MEDS: PRAVASTATIN 20 MG TAB PO SCH (20:08)
--- NOTE | 2019-10-15 20:15 | NUR ---
PATIENT RESTING IN BED IN STABLE CONDITION, NO SIGNS OF DISTRESS NOTED. IV ANTIBIOTICS ARE RUNNING AT ORDERED RATE AND PATIENT VOICES NO PAIN AT THIS TIME. PATIENT HAS INCISION FROM PREVIOUS PROCEDURE, DRESSING IS CLEAN DRY, AND INTACT. NG TUBE TO RIGHT NARE IS PATENT AND INTACT, ON LOW SUCTION. BED IS IN LOWEST POSITION, BOTH SIDE RAILS ARE UP, CALL LIGHT IS WITHIN EASY REACH, WILL CONTINUE TO MONITOR.
[2019-10-15] MEDS: PANTOPRAZOLE 40 MG 10ML VIAL IV SCH (20:50)
[2019-10-16] VITALS (8 sets, daily range): BP systolic 98–132; BP diastolic 58–94
[2019-10-16] MEDS: SODIUM CHLORIDE 0.9% 250ML IRRIG IR SCH ×6 (04:11→23:10)
[2019-10-16] MEDS: VANCOMYCIN 250MG/5ML ORAL SOLN PO SCH ×2 (05:35→14:11)
[2019-10-16] MEDS: METRONIDAZOLE 500MG/NS 100ML 100 ML IV SCH ×3 (05:43→23:08)
[2019-10-16 06:04] LABS: BASOPHILS # (AUTO) 0.1 (0.0-0.1); BASOPHILS % 0.5 % (0.0-1.0); EOSINOPHILS # (AUTO) 0.4 (0.0-0.4); EOSINOPHILS % 3.4 % (0.0-6.0); HEMATOCRIT 32.3 % (38.2-49.6); HEMOGLOBIN 10.2 g/dL (14.0-18.0); LYMPHOCYTES # (AUTO) 1.1 (1.0-3.2); LYMPHOCYTES % 9.2 % (18.0-39.1); MEAN CORPUSCULAR HEMOGLOBIN 29.9 pg (28-32); MEAN CORPUSCULAR HGB CONC 31.6 g/dL (31-35); MEAN CORPUSCULAR VOLUME 94.7 fL (81-99); MONOCYTES # (AUTO) 0.8 (0.2-0.8); MONOCYTES % 6.5 % (4.4-11.3); NEUTROPHILS # (AUTO) 9.8 (2.1-6.9); NEUTROPHILS % 78.5 % (38.7-80.0); PLATELET COUNT 145 x10e3/uL (140-360); RED BLOOD COUNT 3.41 x10e6/uL (4.3-5.7); RED CELL DISTRIBUTION WIDTH 14.6 % (11.7-14.4)
[2019-10-16 06:23] LABS: ALBUMIN 1.5 g/dL (3.5-5.0); ALBUMIN/GLOBULIN RATIO 0.4 (0.8-2.0); ANION GAP 13.9 mmol/L (8-16); CALCIUM 8.2 mg/dL (8.4-10.2); CREATININE, SERUM 8.2 mg/dL (0.72-1.25); MAGNESIUM 1.9 MG/DL (1.3-2.1); POTASSIUM 3.9 mmol/L (3.5-5.1)
--- NOTE | 2019-10-16 07:05 | NUR ---
BEDSIDE SHIFT REPORT RECEIVED FROM PM NURSE. PT SLEEPING, EASILY AROUSED, NO SIGNS OF DISTRESS. NG TUBE NOTED TO RIGHT NARE. IV PATENT WITH FLUIDS RUNNING AT 50 ML/HR. WILL CONTINUE TO MONITOR.
[2019-10-16] MEDS: MIDODRINE HCL 5 MG TABLET PO SCH ×3 (08:00→18:00)
[2019-10-16] MEDS: TAMSULOSIN HCL 0.4 MG CAP PO SCH ×2 (09:00→21:00)
[2019-10-16] MEDS: ROPINIROLE HCL 2 MG TAB PO SCH ×3 (09:00→23:08)
[2019-10-16] MEDS: DEXTROSE 5%/0.9% SOD CHL 1,000 ML IV SCH (09:09)
[2019-10-16] MEDS: PANTOPRAZOLE 40 MG 10ML VIAL IV SCH ×2 (09:28→23:08)
[2019-10-16] MEDS: MORPHINE SULFATE INJ 4 MG/ML INJ 1ML IV PRN (09:48)
--- NOTE | 2019-10-16 10:34 | Progress Note ---
DATE: SUBJECTIVE: The patient is seen and evaluated. REVIEW OF SYSTEMS: No nausea, vomiting, fever, chills, chest pain, shortness of breath. No flatulence and no bowel movement. Abdomen is nontender and he wants to eat. PHYSICAL EXAMINATION: VITAL SIGNS: Temperature is 98.4, pulse is 93, respirations 16, blood pressure 113/62. GENERAL: Alert and oriented. HEENT: Nasogastric tube for suctioning, insists that he is fine and he wants to eat. Moist. No pallor. No JVD. HEART: S1 and S2. LUNGS: Equal expansion. Clear to auscultation. No acute distress. ABDOMEN: Soft, distended. Surgical site dressed. EXTREMITIES: Moves all. No significant edema. MEDICATIONS/ANTIBIOTICS: The patient is on cefepime and Flagyl and vancomycin p.o. Flagyl is an IV form. LABORATORY STUDIES: White count of 12.4, hemoglobin 10.2, platelets 145. Sodium 140, potassium 3.9; creatinine, on dialysis. C diff negative on 10/11. MICROBIOLOGY: Blood culture E coli one set and the other studies clean. PATHOLOGY: No pathology pending. RADIOLOGY STUDIES: No radiology studies available. ASSESSMENT AND PLAN: 1. Small bowel perforation-patient is status post multiple resection of intestinal area secondary to perforated small bowel. 2. Escherichia coli bacteremia. 3. End-stage renal disease. 4. Hypertension. 5. Obesity. 6. Debility. 7. Surgical abdominal wound. 8. E coli in the blood is pansensitive, continue with cefepime, Flagyl IV and vancomycin p.o. Continue with wound care and nasogastric for suctioning. Continue to monitor the patient clinically and follow with the labs. 9. Aggressive PT/OT. 10. Continue with dialysis as recommended per Renal. Please refer to chart from a senior care. Dictated by Nathaniel Stevens PA-C (Al) Kyree Aguilar MD /MODL /[id number]
--- NOTE | 2019-10-16 13:40 | Progress Note ---
DATE: SUBJECTIVE: The patient is still having some abdominal distention. He still has some nausea. Still has an NG tube in place. PHYSICAL EXAMINATION: VITAL SIGNS: Blood pressure is 114/64 and the saturation is 95%. HEENT: Shows no facial swelling or erythema. CARDIAC: Reveals a regular rate and rhythm with normal S1 and S2. LUNGS: Auscultation of lungs reveals decreased breath sounds at the bases. There is no wheezing. ABDOMEN: Soft. It is distended. There is no rebound or guarding. EXTREMITIES: Shows no leg edema or calf tenderness. There is no cyanosis or clubbing. SKIN: Shows no rashes. NEUROLOGICAL: Shows no focal abnormalities. LABORATORY DATA: White blood cell count is 12.4 and hemoglobin is 10.2. The platelet count is 145. BUN to creatinine ratio is elevated with a creatinine of 8.2. Other electrolytes are within normal limits. IMPRESSION: 1. Perforated jejunum and localized abscess requiring a partial small bowel resection. 2. Chronic renal failure. 3. Benign prostatic hypertrophy. 4. Hypertension. 5. Anemia, unspecified. PLAN: 1. Continue current antibiotics. 2. Continue NG tube to suction until it can be removed as per surgery. 3. Out of bed as tolerated. 4. Dialysis as needed. MD SHO Arguelles/YOBANY /[id number]
[2019-10-16] MEDS ORDERED: SODIUM CHLORIDE 0.9% 1000ML 1,000 ML ONE (15:13)
--- NOTE | 2019-10-16 19:00 | NUR ---
RECEIVED PATIENT IN BEDSIDE SHIFT REPORT. PATIENT BEING DIALYZED AT THIS TIME. NO COMPLAINTS REPORTED. NGTUBE TO LCWS TO L NARE DRAINING DARK GREEN FLUID. NO PAIN REPORTED. NO S&S OF DISTRESS NOTED. BED ALARM ON. ALTERNATING PRESSURE PUMP ADDED TO MATTRESS. SCDS ON AND ACTIVE. R FEMORAL TRIPLE LUMEN ASYMPTOMATIC, INTACT, AND PATENT, DRESSING C/D/I. BED LOCKED IN LOWEST POSITION, SIDE RAILS UPX2, CALL LIGHT IN REACH.
--- NOTE | 2019-10-16 20:12 | NUR ---
DIALYSIS COMPLETED AT THIS TIME. NO FLUID OFF D/T LOW BP. VITALS STABLE AT THIS TIME. Addendum: 10/16/19 at 2103 by Cecy Valente RN DIALYSIS NURSE STATED 400ML WERE ADDED TO PATIENT, NONE REMOVED.
[2019-10-16] MEDS: CEFEPIME 1GM/NS 0.9% 50 ML 50 ML IV SCH (20:24)
[2019-10-16] MEDS: PRAVASTATIN 20 MG TAB PO SCH (21:00)
[2019-10-17] VITALS (8 sets, daily range): BP systolic 121–136; BP diastolic 55–67
[2019-10-17] MEDS: DEXTROSE 5%/0.9% SOD CHL 1,000 ML IV SCH ×2 (03:45→12:19)
[2019-10-17] MEDS: MORPHINE SULFATE INJ 4 MG/ML INJ 1ML IV PRN ×3 (04:50→23:21)
[2019-10-17] MEDS: SODIUM CHLORIDE 0.9% 250ML IRRIG IR SCH ×3 (05:02→11:15)
--- NOTE | 2019-10-17 05:15 | NUR ---
PATIENT HAS PULLED NG TUBE, NOT OUT, BUT UNABLE TO DETERMINE MARKING OF ORIGINAL PLACEMENT. ADVANCED TUBE UNTIL GASTRIC DRAINAGE WAS NOTED. PAGEMagy MARTIN TO INFORM. AWAITING CALL BACK.
--- NOTE | 2019-10-17 05:33 | NUR ---
SPOKE WITH MD MARTIN, ORDERS FOR ABD XRAY TO CONFIRM PLACEMENT. NO OTHER ORDERS.
[2019-10-17 05:45] LABS: BASOPHILS # (AUTO) 0.1 (0.0-0.1); BASOPHILS % 0.6 % (0.0-1.0); EOSINOPHILS # (AUTO) 0.3 (0.0-0.4); EOSINOPHILS % 3.1 % (0.0-6.0); HEMOGLOBIN 10.2 g/dL (14.0-18.0); LYMPHOCYTES # (AUTO) 0.9 (1.0-3.2); LYMPHOCYTES % 8.3 % (18.0-39.1); MEAN CORPUSCULAR HEMOGLOBIN 29.5 pg (28-32); MEAN CORPUSCULAR HGB CONC 30.9 g/dL (31-35); MEAN CORPUSCULAR VOLUME 95.4 fL (81-99); MONOCYTES # (AUTO) 0.6 (0.2-0.8); NEUTROPHILS # (AUTO) 8.5 (2.1-6.9); NEUTROPHILS % 80.5 % (38.7-80.0); PLATELET COUNT 170 x10e3/uL (140-360); RED BLOOD COUNT 3.46 x10e6/uL (4.3-5.7); RED CELL DISTRIBUTION WIDTH 14.4 % (11.7-14.4)
[2019-10-17 06:00] LABS: INR 1.18; PROTHROMBIN TIME 15.8 seconds (11.9-14.5)
[2019-10-17 06:20] LABS: ALBUMIN 1.6 g/dL (3.5-5.0); ALBUMIN/GLOBULIN RATIO 0.4 (0.8-2.0); ANION GAP 14.7 mmol/L (8-16); CALCIUM 8.1 mg/dL (8.4-10.2); CREATININE, SERUM 4.72 mg/dL (0.72-1.25); MAGNESIUM 1.7 MG/DL (1.3-2.1); POTASSIUM 3.7 mmol/L (3.5-5.1)
--- NOTE | 2019-10-17 06:20 | Diagnostic Imaging Report ---
Exam: KUB - 1 view Clinical History: NG tube placement. Comparison: CT abdomen/pelvis 10-12-2019. Findings/Impression: Enteric tube terminates in the stomach, the side port is below the GE junction. Trace amount of free air under the right hemidiaphragm, likely reflecting interval surgery. Midline surgical ros. Air and contrast-filled colonic loops. No specific findings of bowel obstruction. Signed by: Dr. Kellie Goldsmith MD on 10/17/2019 6:17 AM
[2019-10-17] MEDS: METRONIDAZOLE 500MG/NS 100ML 100 ML IV SCH ×3 (06:24→21:30)
--- NOTE | 2019-10-17 07:03 | NUR ---
BEDSIDE SHIFT REPORT RECEIVED FROM PM NURSE. NOTED PT'S NGT WAS PULLED OUT SEVERAL INCHES FURTHER THAN PREVIOUS MARKING. PM NURSE ADVANCED TUBE BACK TO PRIOR LOCATION. PT TOLERATED WELL. NO SIGNS OF DISTRESS. WILL CONTINUE TO MONITOR.
[2019-10-17] MEDS: MIDODRINE HCL 5 MG TABLET PO SCH ×3 (08:00→17:20)
--- NOTE | 2019-10-17 08:50 | NUR ---
PT PULLED OUT NG TUBE; TIP INTACT, PAGING DR. MARTIN FOR ORDERS.
--- NOTE | 2019-10-17 09:18 | NUR ---
spoke with Dr. Morton who came to pt's bedside; states okay to leave NG tube out.
--- NOTE | 2019-10-17 09:43 | Progress Note ---
DATE: SUBJECTIVE: The patient is seen and evaluated. Available labs and notes reviewed. Discussed with the nurse. Discussed with Dr. Aguilar. REVIEW OF SYSTEMS: The patient wants to eat, however, states that he has not had any bowel movement or passing gas since yesterday. However, no nausea, vomiting, fever, chills, chest pain, shortness of breath. Abdomen still remains with some discomfort. PHYSICAL EXAMINATION: VITAL SIGNS: Temperature 99.2, pulse is 86, respirations 20, and blood pressure 121/55. GENERAL: Seems to be confused a little better today. He has pulled his NG tube out again, apparently it is not the first time. Clinically, in no acute distress. CV: S1-S2. CHEST: Equal expansion, clear to auscultation. ABDOMEN: Soft, distended with some discomfort pretty much in general. Surgical wound on local care and dressed with a surgical dressing. EXTREMITIES: Weak, moves all. NEURO: No acute distress. MEDICATIONS: Medication list reviewed. From Infectious Disease point of view, the patient is on cefepime IV, vancomycin p.o., and Flagyl IV. LABORATORY STUDIES: White count of 10.57, improved from 12.4, hemoglobin 10.2, platelets 170, improved from 145. Sodium 142, potassium 3.7, creatinine 4.72. The patient is on dialysis. SEROLOGY: No new serology available. MICROBIOLOGY STUDIES: No new Microbiology studies available. IMAGING: KUB showed enteric tube terminates in the stomach. The size port is below the GE junction. Trace amount of free air under the right hemidiaphragm, likely reflecting interval surgery. Midline surgical ros were noted. Also, shows air and contrast filled colonic loop. No specific finding of bowel obstruction. ASSESSMENT AND PLAN: 1. Escherichia coli bacteremia. 2. Perforated small bowel. 3. End-stage renal disease. 4. Confused today. 5. Hypertension. 6. Debility. 7. Obesity. The patient is status post exploratory laparotomy with multiple intestinal resection, had NG tube that he has pulled. KUB showed no acute finding. However, the patient states that he has not had any bowel movement or flatulence. Continue with antibiotic as above. Discussed with Dr. Aguilar. Leukocytosis improved and the patient remains with maximum temperature 99.2 past 48 hours. Please refer to chart for more information. Dictated by Nathaniel Stevens PA-C (Al) MD CAROLINA [place]/YOBANY /[id number]
--- NOTE | 2019-10-17 11:45 | NUR ---
CM DISCUSSED DC PLAN WITH JULITA SNOW POND TENDER WITH DR DENIS ASKED ABOUT ACUTE REHAB OR LTAC SHE STATES PT WILL GO HOME AFTER DIET IS ADVANCED
[2019-10-17] MEDS: PANTOPRAZOLE 40 MG 10ML VIAL IV SCH ×2 (12:02→23:20)
[2019-10-17] MEDS: TAMSULOSIN HCL 0.4 MG CAP PO SCH ×2 (12:02→21:30)
[2019-10-17] MEDS: ROPINIROLE HCL 2 MG TAB PO SCH ×3 (12:02→21:30)
[2019-10-17] MEDS: CEFEPIME 1GM/NS 0.9% 50 ML 50 ML IV SCH (17:20)
--- NOTE | 2019-10-17 19:00 | NUR ---
RECEIVED PATIENT IN BEDSIDE SHIFT REPORT. PATIENT RESTING IN BED AT THIS TIME. NO PAIN REPORTED. NO S&S OF DISTRESS NOTED. TELE ON. R FEMORAL CENTRAL LINE DRESSING C/D/I. BED ALARM ON. BED LOCKED IN LOWEST POSITION, SIDE RAILS UPX2, CALL LIGHT IN REACH.
[2019-10-17] MEDS: PRAVASTATIN 20 MG TAB PO SCH (21:30)
[2019-10-18] VITALS (8 sets, daily range): BP systolic 101–132; BP diastolic 53–71
--- NOTE | 2019-10-18 03:00 | NUR ---
SURGICAL DRESSING NOTED TO BE COMING OFF AND SOILED. CHANGED DRESSING AT THIS TIME WITH STERILE BORDERED GAUZE.
[2019-10-18] MEDS: METRONIDAZOLE 500MG/NS 100ML 100 ML IV SCH ×3 (05:57→22:08)
[2019-10-18 05:59] LABS: BASOPHILS # (AUTO) 0.1 (0.0-0.1); BASOPHILS % 0.6 % (0.0-1.0); EOSINOPHILS # (AUTO) 0.5 (0.0-0.4); EOSINOPHILS % 4.5 % (0.0-6.0); HEMATOCRIT 33.2 % (38.2-49.6); LYMPHOCYTES # (AUTO) 1.5 (1.0-3.2); LYMPHOCYTES % 14.1 % (18.0-39.1); MEAN CORPUSCULAR HEMOGLOBIN 29.5 pg (28-32); MEAN CORPUSCULAR HGB CONC 30.1 g/dL (31-35); MEAN CORPUSCULAR VOLUME 97.9 fL (81-99); MONOCYTES # (AUTO) 0.8 (0.2-0.8); MONOCYTES % 7.5 % (4.4-11.3); NEUTROPHILS # (AUTO) 7.4 (2.1-6.9); PLATELET COUNT 193 x10e3/uL (140-360); RED BLOOD COUNT 3.39 x10e6/uL (4.3-5.7); RED CELL DISTRIBUTION WIDTH 14.2 % (11.7-14.4)
[2019-10-18 06:15] LABS: ALBUMIN 1.6 g/dL (3.5-5.0); ALBUMIN/GLOBULIN RATIO 0.4 (0.8-2.0); ANION GAP 15.5 mmol/L (8-16); CALCIUM 8.2 mg/dL (8.4-10.2); CREATININE, SERUM 6.63 mg/dL (0.72-1.25); POTASSIUM 4.5 mmol/L (3.5-5.1)
[2019-10-18] MEDS ORDERED: SODIUM CHLORIDE 0.9% 1000ML 1,000 ML ONE ×2 (07:21→07:22)
--- NOTE | 2019-10-18 07:28 | NUR ---
ASSUMED CARE. AAOX3. ACYANOTIC. RESTING IN BED. NO DISTRESS NOTED. DENIES PAIN. CALL LIGHT IN REACH. SIDE RAILS UP X2. BED LOW.
[2019-10-18] MEDS: MIDODRINE HCL 5 MG TABLET PO SCH ×3 (08:48→18:00)
[2019-10-18] MEDS: TAMSULOSIN HCL 0.4 MG CAP PO SCH ×2 (08:48→22:08)
[2019-10-18] MEDS: ROPINIROLE HCL 2 MG TAB PO SCH ×3 (08:48→22:08)
[2019-10-18] MEDS ORDERED: ONDANSETRON HCL 4 MG ORAL DISINTEGRATING TAB PO PRN (09:45)
--- NOTE | 2019-10-18 10:07 | NUR ---
outpatient dialysis at [facility] [phone]
--- NOTE | 2019-10-18 11:34 | NUR ---
Spoke to pt at bedside regarding SNF eval. Pt agreeable as long as he can continue getting dialysis at his current dialysis facility - [facility]. Pt agrees to go to facility that Dr. Randhawa goes to. CM gave list of facilities in this area who has contracts with his dialysis facility - [facility], [facility], and [facility]. Pt chose [facility]. Signed choice letter placed in chart. Copy to pt. IMM letter discussed with pt. He verbalized understanding. Signed copy placed in chart. Copy to pt. Referral faxed to [facility] at [phone] / . Notified of anticipated dc for tomorrow.
[2019-10-18] MEDS: CEFEPIME 1GM/NS 0.9% 50 ML 50 ML IV SCH (11:55)
[2019-10-18] MEDS: CEFTRIAXONE SOD 1 GM/NS 50 ML 50 ML IV SCH (12:11)
--- NOTE | 2019-10-18 16:00 | NUR ---
RETIREMENT FACILITY DISCHARGE INFORMATION PATIENT HAS BEEN ACCEPTED TO: [facility] [place] [address] [place] [address] ACCEPTING PHYSICAL CHEMISTRY PROFESSOR: Mary Kate Ramirez ACCEPTING MD: Dr. Randhwaa ROOM: 156 NURSE CALL REPORT TO: [phone] IMM SIGNED AND OBTAINED (if applicable): yes THE FOLLOWING DOCUMENTS MUST ACCOMPANY PATIENT FOR TRANSFER: copy of chart, transfer MAR COPIED CHART: Shaunna, community arts centre manager RTF: completed and placed with pt's packet at nurses station [id number] DNR: n/a ROBLES Flores was notified of bed assignment. Addendum: 10/18/19 at 1607 by Loyda Walker CM COVID assessment form and PASRR faxed to facility. Copies placed in chart.
--- NOTE | 2019-10-18 17:30 | Progress Note ---
DATE: SUBJECTIVE: The patient is seen and evaluated. Available labs and notes reviewed. Discussed with the nurse. The patient's confusion improving little by little, now has intermittent confusion. The patient is placed on a liquid diet; however, he chokes on it while he is lying down. He needs to eat and drink while sitting up per my discussion with the nurse. Hemodialysis is in the room right now. OBJECTIVE: VITAL SIGNS: Temperature 98, pulse is 83, respirations 20, and blood pressure 117/69. GENERAL: Alert and oriented, not as confused as he was yesterday. CV: S1 and S2. CHEST: Equal expansion. Clear to auscultation. No acute distress. ABDOMEN: Soft, distended. Surgical site with ros. No active drainage noted. No erythema. Abdomen remains with discomfort in general. HEENT: Moist. No pallor. No JVD. EXTREMITIES: Trace edema. MEDICATIONS: Medication list reviewed. As far as Infectious Disease point of view, patient is on vancomycin, cefepime and Flagyl. LABORATORY STUDIES: White count of 10.33, hemoglobin 10, platelet 193, platelet improved from 170. Sodium 143, potassium 4.5, creatinine 6.63 on dialysis. MICROBIOLOGY: No recent microbiology studies available. RADIOLOGY: He had an x-ray of the abdomen shows enteric tube terminates in the stomach. ASSESSMENT AND PLAN: 1. Perforated small bowel, status post exploratory laparotomy, multiple resections of a small bowel. 2. Escherichia coli bacteremia. 3. End-stage renal disease. 4. Hypertension. 5. Confusion-improved. 6. Obesity. 7. Debility. 8. Surgical abdominal wound with some discomfort. 9. Continue with antibiotics at this point, dialysis per others. Clinically, seems to be better today, some choking episodes with liquids while he is lying flat. Discussed with the nurse. Plan is for long-term facility. Further management of this patient is based on daily findings on laboratory and physical examination. Discussed with Dr. Aguilar in details. Please refer to chart for more information. Dictated by Nathaniel Stevens PA-C (Al) Kyree Aguilar MD /MODL /[id number]
--- NOTE | 2019-10-18 18:25 | Progress Note ---
DATE: SUBJECTIVE: The patient has no longer has an NG tube. He is advancing his diet. He is not having fevers. PHYSICAL EXAMINATION: VITAL SIGNS: The patient is afebrile. He is on 2 L of oxygen and saturating 100%. Blood pressure is 122/71 and the pulse is 76. HEENT: Shows no facial swelling or erythema. CARDIAC: Reveals regular rate and rhythm with normal S1 and S2. LUNGS: Auscultation of lungs reveals decreased breath sounds at the bases. There is no wheezing. ABDOMEN: Soft and nontender. There is still some distention. EXTREMITIES: There is no leg edema. LABORATORY DATA: White blood cell count is 10.3 and the hemoglobin is 10. The platelet count is 193. BUN to creatinine ratio is 24 to 6.63. Albumin is 1.6. IMPRESSION: 1. Focal perforation of the small bowel requiring a partial jejunostomy. 2. Escherichia coli bacteremia. 3. End-stage renal disease. 4. Hypertension. 5. Anemia, unspecified. 6. Benign prostatic hypertrophy. PLAN: 1. Continue to advance diet as tolerated. 2. Continue antibiotics. 3. Physical therapy. 4. Out of bed as tolerated. MD SHO Arguelles/YOBANY /[id number]
--- NOTE | 2019-10-18 19:00 | NUR ---
RECEIVED PATIENT IN BEDSIDE SHIFT REPORT. PATIENT RESTING IN BED AT THIS TIME. NO PAIN REPORTED. NO S&S OF DISTRESS NOTED. BED ALARM ON. BED LOCKED IN LOWEST POSITION, SIDE RAILS UPX2, CALL LIGHT IN REACH.
--- NOTE | 2019-10-18 21:00 | NUR ---
SURGICAL DRESSING NOTED TO BE COMING OFF AGAIN. REDRESSED WITH BORDERED GAUZE. INCISION IS WELL-APPROXIMATED, MINDY ALL INTACT, NO DRAINAGE NOTED TO SITE, HOWEVER NEW SEROSANGUINEOUS DRAINAGE NOTED TO OLD DRESSING. SURROUNDING SKIN NORMAL. WILL CONTINUE TO MONITOR.
[2019-10-18] MEDS: PRAVASTATIN 20 MG TAB PO SCH (22:08)
[2019-10-18] MEDS: PANTOPRAZOLE SOD 40 MG TABEC PO SCH (22:08)
[2019-10-19] VITALS: BP 121/65
--- NOTE | 2019-10-19 01:15 | NUR ---
NEW IV TO R AC 20G. WILL MONITOR TO ENSURE PATIENT DOES NOT PULL IV OUT. BED ALARM ON.
[2019-10-19] MEDS: CEFTRIAXONE SOD 1 GM/NS 50 ML 50 ML IV SCH ×2 (01:20→12:08)
[2019-10-19 04:00] VITALS: BP 127/63
--- NOTE | 2019-10-19 04:45 | NUR ---
R FEMORAL LINE REMOVED AT THIS TIME, SUTURES FULLY REMOVED FROM SKIN. CATHETER TIP INTACT. PRESSURE HELD FOR 5 MINUTES FOR HEMOSTASIS. STERILE GAUZE AND TEGADERM DRESSING APPLIED. PATIENT VERBALIZED UNDERSTANDING TO LAY FLAT FOR 30 MINUTES. WILL CONTINUE TO MONITOR. Addendum: 10/19/19 at 0459 by Cecy Valente RN Amended: Links added.
[2019-10-19] MEDS: METRONIDAZOLE 500MG/NS 100ML 100 ML IV SCH (05:38)
[2019-10-19 06:19] LABS: BASOPHILS # (AUTO) 0.1 (0.0-0.1); BASOPHILS % 0.8 % (0.0-1.0); EOSINOPHILS # (AUTO) 0.4 (0.0-0.4); EOSINOPHILS % 4.1 % (0.0-6.0); HEMATOCRIT 32.5 % (38.2-49.6); HEMOGLOBIN 10.1 g/dL (14.0-18.0); LYMPHOCYTES # (AUTO) 1.1 (1.0-3.2); LYMPHOCYTES % 12.3 % (18.0-39.1); MEAN CORPUSCULAR HEMOGLOBIN 29.4 pg (28-32); MEAN CORPUSCULAR HGB CONC 31.1 g/dL (31-35); MEAN CORPUSCULAR VOLUME 94.8 fL (81-99); MONOCYTES # (AUTO) 0.6 (0.2-0.8); MONOCYTES % 6.9 % (4.4-11.3); NEUTROPHILS # (AUTO) 6.8 (2.1-6.9); NEUTROPHILS % 75.1 % (38.7-80.0); PLATELET COUNT 192 x10e3/uL (140-360); RED BLOOD COUNT 3.43 x10e6/uL (4.3-5.7); RED CELL DISTRIBUTION WIDTH 13.9 % (11.7-14.4)
[2019-10-19 06:37] LABS: ALBUMIN 1.6 g/dL (3.5-5.0); ALBUMIN/GLOBULIN RATIO 0.4 (0.8-2.0); ANION GAP 14.7 mmol/L (8-16); CREATININE, SERUM 5.01 mg/dL (0.72-1.25); MAGNESIUM 1.7 MG/DL (1.3-2.1); POTASSIUM 3.7 mmol/L (3.5-5.1)
[2019-10-19 07:47] VITALS: BP 106/60
[2019-10-19 08:00] VITALS: BP 106/60
[2019-10-19] MEDS: TAMSULOSIN HCL 0.4 MG CAP PO SCH (08:13)
[2019-10-19] MEDS: MIDODRINE HCL 5 MG TABLET PO SCH ×2 (08:13→12:08)
[2019-10-19] MEDS: PANTOPRAZOLE SOD 40 MG TABEC PO SCH (08:13)
[2019-10-19] MEDS ORDERED: PROTONIX40 MG/ML PO (09:19)
[2019-10-19] MEDS: ROPINIROLE HCL 2 MG TAB PO SCH (09:47)
--- NOTE | 2019-10-19 10:03 | Progress Note ---
DATE: SUBJECTIVE: The patient is seen and evaluated. Discussed with the nurse. REVIEW OF SYSTEMS: No nausea, vomiting, fever, chills, chest pain, shortness of breath, headache, rash, dysuria, or polyuria. Appetite is improving and he eats well without any complications. PHYSICAL EXAMINATION: VITAL SIGNS: Temperature is 98.1, pulse 87, respirations 18, and blood pressure 106/60. GENERAL: Alert and oriented, in no acute distress. Tolerates eating. No altered mental status. During my visit, his confusion seems to be much better. CV: S1, S2. CHEST: Equal expansion. Clear to auscultation. No acute distress. ABDOMEN: Soft, nontender. No distention. HEENT: Moist. No pallor. No JVD. EXTREMITIES: Moves all. ABDOMEN: Surgical site seen. There is slight amount of red old drainage and the dressing, but the wound itself remains with ros. No tension and surgical site remains with ros and no active drainage noted when the abdomen was examined. MEDICATIONS: Medication list reviewed. As far as Infectious Disease point of view, the patient is on Rocephin and Flagyl. LABORATORY STUDIES: White count of 9.07, hemoglobin 10.1, platelet 192. Sodium 139, potassium 3.7, creatinine 5.01. The patient on dialysis. SEROLOGY: No new serology available. MICROBIOLOGY: Followup blood cultures pending, had a history of E coli bacteremia on 10/07/2019. IMAGING: KUB was done on 10/17/2019, which as mentioned in a previous note, there is no acute finding. ASSESSMENT AND PLAN: 1. Perforated small bowel, status post exploratory laparotomy with resection of multiple sections of small bowel. 2. Escherichia coli bacteremia. 3. End-stage renal disease. 4. Confusion-resolved, most likely from anesthesia during the surgery. 5. Hypertension. 6. Obesity. 7. Debility. 8. Continue with the wound care of the surgical site, continue with Rocephin and Flagyl at this point. Follow up with blood culture. Discharge planning noted for [facility]. Discussed with Dr. Aguilar. Please refer to chart for more information. Further management of this patient is based on daily findings on laboratory and physical examination. Dictated by Nathaniel Stevens PA-C (Al) MD CAROLINA Cleveland/YOBANY /[id number]
--- NOTE | 2019-10-19 11:09 | NUR ---
REPORT RECEIVED BY Renée JIANG LVN OF [facility] AT APPROXIMATELY 11 AM. WILL SET UP MODE OF TRANSPORTATION.
[2019-10-19 11:44] VITALS: BP 117/60
--- NOTE | 2019-10-19 17:13 | Progress Note ---
DATE: SUBJECTIVE: The patient is doing better. He is eating. He is able to ambulate. He is complaining of less pain. PHYSICAL EXAMINATION: VITAL SIGNS: Blood pressure is 117/60 and the saturation is 98% on 2 L. CARDIAC: Reveals regular rate and rhythm with normal S1 and S2. LUNGS: Auscultation of lungs reveals decreased breath sounds at the bases. There is no wheezing. ABDOMEN: Soft and nontender. There is no rebound or guarding. EXTREMITIES: Shows no leg edema or calf tenderness. IMPRESSION: 1. Focal perforation of the bowel with partial abscess, requiring a partial jejunostomy. 2. Escherichia coli bacteremia. 3. End-stage renal disease. 4. Anemia. 5. Hypertension. PLAN: 1. Possible discharge today. 2. Continue current diet. 3. Dialysis as an outpatient. 4. Complete antibiotics as per Infectious Disease. MD SHO Arguelles/YOBANY /[id number]
--- NOTE | 2019-10-19 22:56 | Discharge Summary ---
ADMISSION DIAGNOSES: Enterocolitis, present on admission; end-stage renal disease; benign prostatic hypertrophy; hyperlipidemia. DISCHARGE DIAGNOSES: Enterocolitis, present on admission; end-stage renal disease; benign prostatic hypertrophy; hyperlipidemia; Escherichia coli bacteremia, present on admission; rule out coronavirus disease 2018; rule out Clostridium difficile; intestinal perforation. HISTORY: [place] with CAD, end-stage renal disease, BPH, hyperlipidemia. SURGICAL HISTORY: Left arm fistula, back surgery. FAMILY HISTORY: Noncontributory. SOCIAL HISTORY: Noncontributory. HOSPITAL COURSE: A 74-year-old male admits with complaints of intermittent lower abdominal pain, nausea, vomiting, and diarrhea that began last night. He complains of watery diarrhea x4 yesterday. He denies fever. On admission, CT of the abdomen and pelvis showed findings seen with enterocolitis, mild cardiomegaly, and CAD. CTA of the abdomen and pelvis the following day showed extensive abdominal aortic atherosclerosis, findings consistent with enterocolitis. Additionally, abdominal wall thickening and suspected foci of extraluminal air identified adjacent to the loop of small bowel, which may reflect a contained perforation. Two days later, an additional CT of the abdomen and pelvis was done, which showed re-demonstration of multiple areas of apparently extraluminal fluid and air. The patient continued IV antibiotics of Zosyn and Flagyl and was taken to the OR by Surgery for exploratory laparotomy with multiple intestinal resections. After surgery, the patient had a KUB placed and was kept n.p.o. Followup KUB showed air and contrast filled colonic loops. No specific obstruction. Hepatitis panel negative. Coronavirus negative. C diff negative. The patient's blood culture came back positive for E coli per Infectious Disease. The patient is able to discharge with Rocephin and Flagyl for 2 more weeks at the time of discharge. The patient will go to care home facility per Physical Therapy recommendation. The patient is tolerating diet, having bowel movements and passing gas at the time of discharge. He will discharge to SNF and follow up with primary care in 1 to 2 weeks and Surgery in 1 to 2 weeks. The patient understands instructions and agrees to plan. Vital signs stable, the patient afebrile. Dictated by Nicole Back NP MD NESTOR Zavala/MODL /[id number]
== END 2019-10-19 14:02 | DRG 329 ==
LOC: ER 20:52 → ERHOLD 10-09 01:18 → ICU 10-10 13:19 → MED/SURG 10-11 07:46
PROVIDERS: ADMIT Internal Medicine; ATTEND Internal Medicine
PROC: 5A1D70Z Performance of Urinary Filtration, Intermittent, Less than 6 Hours Per Day (ICD-10-PCS; principal; 2019-10-09)
PROC: 5A1D70Z Performance of Urinary Filtration, Intermittent, Less than 6 Hours Per Day (ICD-10-PCS; 2019-10-11)
PROC: 5A1D70Z Performance of Urinary Filtration, Intermittent, Less than 6 Hours Per Day (ICD-10-PCS; 2019-10-13)
PROC: 0DBA0ZZ Excision of Jejunum, Open Approach (ICD-10-PCS; 2019-10-14 09:00)
PROC: 5A1D70Z Performance of Urinary Filtration, Intermittent, Less than 6 Hours Per Day (ICD-10-PCS; 2019-10-16)
PROC: 5A1D70Z Performance of Urinary Filtration, Intermittent, Less than 6 Hours Per Day (ICD-10-PCS; 2019-10-18)
DX: K63.1 Perforation of intestine (nontraumatic) (principal); N18.6 End stage renal disease; K63.0 Abscess of intestine; I12.0 Hypertensive chronic kidney disease with stage 5 chronic kidney disease or end stage renal disease; R78.81 Bacteremia; K52.9 Noninfective gastroenteritis and colitis, unspecified; E86.1 Hypovolemia; I25.10 Atherosclerotic heart disease of native coronary artery without angina pectoris; Z99.2 Dependence on renal dialysis; D29.1 Benign neoplasm of prostate; E78.5 Hyperlipidemia, unspecified; I25.2 Old myocardial infarction; Z95.5 Presence of coronary angioplasty implant and graft; Z90.49 Acquired absence of other specified parts of digestive tract; E11.22 Type 2 diabetes mellitus with diabetic chronic kidney disease; Z84.1 Family history of disorders of kidney and ureter; Z83.3 Family history of diabetes mellitus; Z11.59 Encounter for screening for other viral diseases; E66.9 Obesity, unspecified; D69.6 Thrombocytopenia, unspecified; A08.4 Viral intestinal infection, unspecified; W19.XXXA Unspecified fall, initial encounter; Y93.9 Activity, unspecified; Y92.230 Patient room in hospital as the place of occurrence of the external cause; D63.8 Anemia in other chronic diseases classified elsewhere; B96.20 Unspecified Escherichia coli [E. coli] as the cause of diseases classified elsewhere; Z68.27 Body mass index [BMI] 27.0-27.9, adult
CPT/HCPCS: 36415; 36555; 71045; 74018; 74174; 74177; 80048; 80053; 81001; 82550; 82553; 82948; 83036; 83605; 83690; 83735; 83880; 84100; 84443; 84484; 85025; 85610; 85730; 86704; 86705; 86707; 87040; 87071; 87186; 87205; 87340; 87493; 87635; 88307; 93005; 97139; 99284; J0692; J0696; J1170; J2001; J2270; J2405; J2543; J3010; J7030; J7040; J7042; J7050; J7799; Q9967

== ENCOUNTER 2019-11-06 18:57 | Emergency (ER) | payer MEDICARE ==
[~2019-11-06] VITALS: Ht 172.7 cm; Wt 83.0 kg
[~2019-11-06 18:57] MED LIST changes: +HYDROXYZINE PAM25 MG PO; +MIDODRINE HCL5 MG PO; +NAPROXEN250 MG PO; +PROTONIX40 MG/ML PO
--- OUTSIDE RECORDS SUMMARY | 2019-11-06 19:20 | XMS REPORT | Clinical Summary ---
Author Author TIFF [facility] Organization [facility] Address Unknown Phone Unavailable Care Team Providers Care Retail Custodial Associate Name Role Phone Jordan Alex PCP Allergies No Known Allergies Medications End Date Status Medication Sig Dispensed Refills Start Date Active pravastatin (PRAVACHOL) Take 40 mg by 0 40 MG tablet mouth daily. Active rOPINIRole (REQUIP) 0.5 Take 0.5 mg 0 MG tablet by mouth daily. Active tamsulosin (FLOMAX) 0.4 Take 0.4 mg 0 mg Cp24 by mouth nightly. Active acetaminophen (TYLENOL) Take 650 mg 0 325 MG tablet by mouth every 6 (six) hours as needed for Pain. Active midodrine (PROAMATINE) 10 Take 10 mg by 0 MG tablet mouth 3 (three) times daily. Active pantoprazole (PROTONIX) Take 40 mg by 0 40 MG tablet mouth every 12 (twelve) hours. Active ondansetron (ZOFRAN) 4 MG Take 4 mg by 0 tablet mouth every 6 (six) hours as needed for Nausea. Active furosemide (LASIX) 80 MG Take 80 mg by 0 tablet mouth 2 (two) times daily. Active heparin injection 5,000 Inject 1 mL 1 mL 0 units/mL (5,000 Units 0 total) subcutaneousl y every 12 (twelve) hours. Active docusate sodium (COLACE) Take 1 0 11/01 100 MG capsule capsule (100 0 mg total) by mouth 2 (two) times daily. Active epoetin char-epbx Inject 1 mL 0 (RETACRIT) 4,000 unit/mL (4,000 Units 0 Soln total) injectionIndications: subcutaneousl anemia in chronic kidney y 3 (three) disease times a week at bedtime MON/WED/WED. 11/09/2019 Active HYDROcodone-acetaminophen Take 1 tablet 0 (NORCO 7.5-325) 7.5-325 by mouth 0 mg per tablet every 6 (six) hours as needed (moderate to severe pain) for up to 7 days. Max Daily Amount: 4 tablets 11/06/2019 Active linezolid (ZYVOX) 600 mg Take 1 tablet 20 tablet 0 tablet (600 mg 0 total) by mouth every 12 (twelve) hours for 4 days. 10/26/2019 Discontinued fluticasone-salmeterol Inhale into 0 (ADVAIR) 250-50 mcg/dose the lungs. diskus inhaler Take as directed. 10/26/2019 Discontinued IPRATROPIUM/ALBUTEROL Inhale into 0 SULFATE (COMBIVENT) the lungs. 18-103 mcg/Actuation Aero Inhale as directed. 10/26/2019 Discontinued doxazosin (CARDURA) 2 MG Take 2 mg by 0 tablet mouth nightly. 10/26/2019 Discontinued paricalcitol (ZEMPLAR) 1 Take by 0 MCG capsule mouth. Take 1 by mouth every other day. 10/26/2019 Discontinued CALCIUM CARBONATE (TUMS Take by 0 ORAL) mouth. Take with each meal regularly. 10/26/2019 Discontinued levocetirizine (XYZAL) 5 Take 5 mg by 0 MG tablet mouth every evening. 10/26/2019 Discontinued multivitamin Take 1 tablet 0 (MULTIVITAMIN) per tablet by mouth daily. 10/26/2019 Discontinued aspirin 325 MG tablet Take 325 mg 0 by mouth daily. 11/02/2019 Discontinued cefTRIAXone (ROCEPHIN) 1 Inject 1 g 0 g in dextrose 5% (D5W) 50 intravenously mL (DUPLEX) IVPB 2 (two) times daily. 11/02/2019 Discontinued heparin sodium,porcine Inject as 0 (HEPARIN, PORCINE,) 5,000 directed unit/mL (1 mL) Crtg daily. 11/02/2019 Discontinued metroNIDAZOLE (FLAGYL) Inject 500 mg 0 IVPB 500 mg in sodium intravenously chloride 0.9% (NS) 100 mL . Active Problems Problem Noted Date Wound dehiscence, surgical, initial encounter 2019 Bleeding 10/26/2019 ESRD (end stage renal disease) on dialysis 2 Hypertensive kidney disease 05/10/2012 Encounters Care Team Description Date Type Specialty Gamaliel Echeverria MD 10/27/2019 Anesthesia Event Kaleb Kuhn MD EXPLORATION,WOUND TRUNK ANTERIOR 10/27/2019 Surgery Pia Morris MD Giveon, Ron, MD LLQ pain (Primary Dx); Bleeding; Wound dehiscence; Nausea; ESRD (end stage renal disease) on dialysis ([facility]) 10/26/2019 Hospital General Internal Wy dicine - Encounter 11/02/2019 10/26/2019 Orders Only General Internal Wy dicine 10/26/2019 Travel after 11/05/2018 Social History Date Tobacco Use Types Packs/Day Years Used Current Some Day Smoker Alcohol Use Drinks/Week oz/Week Comments No Sex Assigned at Date Recorded Not on file Industry Job Start Date Occupation Not on file Not on file Not on file Travel End Travel History Travel Start No recent travel history available. Last Filed Vital Signs Time Taken Vital Sign Reading 11/02/2019 11:40 AM CDT Blood Pressure 128/62 11/02/2019 11:40 AM CDT Pulse 98 11/02/2019 11:40 AM CDT Temperature 36.7 C (98 F) 11/02/2019 11:40 AM CDT Respiratory Rate 18 11/02/2019 11:40 AM CDT Oxygen Saturation 95% 10/26/2019 11:14 AM CDT Inhaled Oxygen 21% Concentration 11/02/2019 5:14 AM CDT Weight 80.6 kg (177 lb 11.2 oz) 10/26/2019 11:14 AM CDT Height 172.7 cm (5' 8") 11/02/2019 5:14 AM CDT Body Mass Index 27.02 Plan of Treatment Not on file Procedures Comments Procedure Name Priority Date/Time Associated Diag nosis RHYTHM STRIP - SCAN 11/06/2019 9:11 AM CDT REPORT OF PROCEDURE - 11/06/2019 ENDOSCOPY SCAN 9:11 AM CDT CBC W/PLT COUNT & AUTO Routine 11/02/2019 DIFFERENTIAL 4:26 AM CDT BASIC METABOLIC PANEL (7) Routine 11/02/2019 4:26 AM CDT CBC W/PLT COUNT & AUTO Routine 11/02/2019 DIFFERENTIAL 4:26 AM CDT HEMODIALYSIS INPATIENT Routine 11/01/2019 2:16 PM CDT POCT-GLUCOSE METER Routine 10/30/2019 6:27 PM CDT POCT-GLUCOSE METER Routine 10/30/2019 11:24 AM CDT HEMODIALYSIS INPATIENT Routine 10/30/2019 9:22 AM CDT CBC W/PLT COUNT & AUTO Routine 10/30/2019 DIFFERENTIAL 4:38 AM CDT PHOSPHORUS Routine 10/30/2019 4:38 AM CDT MAGNESIUM Routine 10/30/2019 4:38 AM CDT BASIC METABOLIC PANEL (7) Routine 10/30/2019 4:38 AM CDT CBC W/PLT COUNT & AUTO Routine 10/30/2019 DIFFERENTIAL 4:38 AM CDT CBC W/PLT COUNT & AUTO Routine 10/29/2019 DIFFERENTIAL 3:37 AM CDT PHOSPHORUS Routine 10/29/2019 3:37 AM CDT MAGNESIUM Routine 10/29/2019 3:37 AM CDT BASIC METABOLIC PANEL (7) Routine 10/29/2019 3:37 AM CDT CBC W/PLT COUNT & AUTO Routine 10/29/2019 DIFFERENTIAL 3:37 AM CDT TRANSFUSION SERVICE 10/28/2019 REPORT - SCAN 5:51 PM CDT CBC W/PLT COUNT & AUTO Routine 10/28/2019 DIFFERENTIAL 3:02 AM CDT PHOSPHORUS Routine 10/28/2019 3:02 AM CDT MAGNESIUM Routine 10/28/2019 3:02 AM CDT BASIC METABOLIC PANEL (7) Routine 10/28/2019 3:02 AM CDT CBC W/PLT COUNT & AUTO Routine 10/28/2019 DIFFERENTIAL 3:02 AM CDT HEMODIALYSIS INPATIENT Routine 10/27/2019 11:07 PM CDT SURGICALLY OBTAINED ALFIE 10/27/2019 CULTURE + GRAM STAIN 4:06 PM CDT ANAEROBIC CULTURE ALFIE 10/27/2019 4:06 PM CDT POCT-GLUCOSE METER Routine 10/27/2019 1:40 PM CDT EXPLORATION,WOUND TRUNK 10/27/2019 Fascial defec t ANTERIOR 1:15 PM CDT CBC W/PLT COUNT & AUTO Routine 10/27/2019 DIFFERENTIAL 8:26 AM CDT TYPE AND SCREEN, Routine 10/27/2019 AUTOMATED 8:26 AM CDT CBC W/PLT COUNT & AUTO Routine 10/27/2019 DIFFERENTIAL 8:26 AM CDT MAGNESIUM Routine 10/27/2019 8:26 AM CDT BASIC METABOLIC PANEL (7) Routine 10/27/2019 8:26 AM CDT HEPATITIS B SURFACE STAT 10/26/2019 ANTIGEN 9:33 PM CDT SARS-COV2/RT-PCR ([facility] & STAT 10/26/2019 REF LABS) 6:[address] ABDOMEN/PELVIS WITHOUT STAT 10/26/2019 IV CONTRAST 3:00 PM CDT XR CHEST 1 VIEW STAT 10/26/2019 PORTABLE/BEDSIDE 1:01 PM CDT CBC W/PLT COUNT & AUTO STAT 10/26/2019 DIFFERENTIAL 11:58 AM CDT URINALYSIS W/ REFLEX STAT 10/26/2019 URINE CULTURE 11:58 AM CDT HEPATIC FUNCTION PANEL STAT 10/26/2019 11:58 AM CDT LIPASE STAT 10/26/2019 11:58 AM CDT PT/APTT STAT 10/26/2019 11:58 AM CDT B-TYPE NATRIURETIC FACTOR STAT 10/26/2019 (BNP) 11:58 AM CDT TROPONIN I STAT 10/26/2019 11:58 AM CDT LACTIC ACID, VENOUS STAT 10/26/2019 11:58 AM CDT BASIC METABOLIC PANEL (7) STAT 10/26/2019 11:58 AM CDT CBC W/PLT COUNT & AUTO STAT 10/26/2019 DIFFERENTIAL 11:58 AM CDT ECG 12-LEAD Routine 10/26/2019 11:43 AM CDT ECG 12-LEAD Routine 10/26/2019 11:43 AM CDT Procedure Note - Interface, External Ris In - 10/26/2019 5:21 PM CDT Ventricula r Rate 75 BPM Atrial Rate 75 BPM P-R Interval 134 ms QRS Duration 78 ms Q-T Interval 386 ms QTC Calculatio n(Bazett) 431 ms P [place] 37 degrees R [place] -6 degrees T [place] 36 degrees Normal sinus rhythm Septal infarct (cited on or before 3) Abnormal ECG When compared with ECG of 0 11:43, No significan t change was found ECG 12-LEAD Routine 10/26/2019 11:43 AM CDT Procedure Note - Interface, External Ris In - 10/26/2019 5:21 PM CDT Ventricula r Rate 73 BPM Atrial Rate 73 BPM P-R Interval 140 ms QRS Duration 80 ms Q-T Interval 380 ms QTC Calculatio n(Bazett) 418 ms P [place] -29 degrees R [place] 16 degrees T [place] 2 degrees Normal sinus rhythm Septal infarct (cited on or before 3) Abnormal ECG When compared with ECG of 3 11:51, Questionab le change in initial forces of Anterior leads Nonspecifi c T wave abnormalit y now evident in Inferior leads Nonspecifi c T wave abnormalit y now evident in Anterolate ral leads ECG 12-LEAD STAT 10/26/2019 11:43 AM CDT after 11/05/2018 Results * RHYTHM STRIP - SCAN (11/06/2019 9:11 AM CDT) Narrative Performed At This result has an attachment that is n ot available. * EKG-SCANNED (11/06/2019 9:11 AM CDT) Narrative Performed At This result has an attachment that is n ot available. * CBC with platelet count + automated diff (11/02/2019 4:26 AM CDT) Only the most recent of 6 results within the time period is included. WBC 8.1 3.5 - 10.5 K/L [facility] RBC 2.82 (L) 4.63 - 6.08 M/L [facility] Hemoglobin 8.6 (L) 13.7 - 17.5 GM/DL [facility] Hematocrit 26.9 (L) 40.1 - 51.0 % [facility] MCV 95.4 (H) 79.0 - 92.2 fL [facility] MCH 30.5 25.7 - 32.2 pg [facility] MCHC 32.0 (L) 32.3 - 36.5 GM/DL [facility] RDW 13.8 11.6 - 14.4 % [facility] Platelets 245 150 - 450 K/CU MM [facility] MPV 10.1 9.4 - 12.4 fL [facility] nRBC 0 0 - 0 /100 WBC [facility] % Neutros 67 % [facility] % Lymphs 15 % [facility] % Monos 8 % [facility] % Eos 7 % [facility] % Baso 1 % [facility] # Neutros 5.47 (H) 1.78 - 5.38 K/L [facility] # Lymphs 1.25 (L) 1.32 - 3.57 K/L [facility] # Monos 0.67 0.30 - 0.82 K/L [facility] # Eos 0.56 (H) 0.04 - 0.54 K/L [facility] # Baso 0.11 (H) 0.01 - 0.08 K/L [facility] Immature 1 0 - 1 % [facility] Granulocytes[facility] Specimen Blood Performing Organization Address City/State/Zipcode Ph one Number [address] [facility] [facility] * Basic Metabolic Panel (11/02/2019 4:26 AM CDT) Only the most recent of 6 results within the time period is included. Sodium 136 136 - 145 meq/L [facility] Potassium 4.1 3.5 - 5.1 meq/L [facility] Chloride 102 98 - 107 meq/L [facility] CO2 28 22 - 29 meq/L [facility] BUN 14 7 - 21 mg/dL [facility] Creatinine 4.84 (H) 0.57 - 1.25 mg/dL [facility] Glucose 88 70 - 105 mg/dL [facility] Calcium 7.5 (L) 8.4 - 10.2 mg/dL [facility] EGFR 12Comment: ESTIMATED GFR IS mL/min/1.73 sq m [facility] NOT ACCURATE CREATININE [facility] CLEARANCE IN PREDICTING GLOMERULAR FILTRATION RATE. ESTIMATED GFR IS NOT APPLICABLE FOR DIALYSIS PATIENTS. Specimen Blood Narrative Performed At Child Protective Investigator ID - KELLIE [facility] Performing Organization Address City/[facility] Ph one [address] [facility] * POC-Glucose meter (10/30/2019 6:27 PM CDT) Only the most recent of 3 results within the time period is included. POC-Glucose Meter 120 (H)Comment: : TESTED AT 70 - 110 mg/dL [address], [facility] [address]: Child Protective Investigator/Theatrical Trouper ID = [id number] for BernardLydiaAnn Specimen Blood Performing Organization Address [facility] one [phone] [place] [address] * Phosphorus (10/30/2019 4:38 AM CDT) Only the most recent of 3 results within the time period is included. Phosphorus 4.2 2.3 - 4.7 mg/dL [facility] Specimen Blood Narrative Performed At Child Protective Investigator ID - JESÚS Ackerman [facility] Performing Organization Address [facility] one [address] [facility] * Magnesium (10/30/2019 4:38 AM CDT) Only the most recent of 4 results within the time period is included. Magnesium 1.6 1.6 - 2.6 mg/dL [facility] Specimen Blood Narrative Performed At Child Protective Investigator ID - LUZMARIA Ackerman [facility] Performing Organization Address [facility] Ph one [address] [facility] * TRANSFUSION SERVICE REPORT - SCAN (10/28/2019 5:51 PM CDT) Narrative Performed At This result has an attachment that is n ot available. * HEMODIALYSIS INPATIENT (10/27/2019 11:07 PM CDT) Narrative Performed At Lani Patel RN 10/27/2019 11:07 PM Patient is awake, alert and oriented X 4. Here to be dialyzed for 4 hours with UF goal of 3.5L. [facility] most updated labs are as follows: Lab Results Component Value Date HEPBSAG Nonreactive 10/26/2019 Lab Results Component Value Date GLUCOSE 77 10/27/2019 CALCIUM 7.9 (L) 10/27/2019 NA 134 (L) 10/27/2019 K 3.9 10/27/2019 CO2 29 10/27/2019 CL 98 10/27/2019 BUN 19 10/27/2019 CREATININE 6.40 (H) 10/27/2019 Lab Results Component Value Date WBC 8.1 10/27/2019 HGB 8.7 (L) 10/27/2019 HCT 27.3 (L) 10/27/2019 MCV 96.8 (H) 10/27/2019 PLT 280 10/27/2019 Patient dialyzed for 4 hours with Net U F = 3.2L L using the Left arm AV fistula access. Vital signs stab le and well within the set parameters. Report given to primary RN. Patient was able to tolerate the treatment well. Lani Patel RN * Surgically obtained culture + gram stain (10/27/2019 4:06 PM CDT) Result 2+ Vancomycin resistant [facility] Enterococcus faecium (A) [facility] Gram Stain Result <1+ WBCs [facility] Gram Stain Result No organisms seen [facility] Specimen Tissue Antibiotic Method Susceptibility Organism Ampicillin >=32: Resistant Vancomycin resistant Enterococcus faecium Linezolid 2: Susceptible Vancomycin resistant Enterococcus faecium Vancomycin >=32: Resistant Vancomycin resistant Enterococcus faecium Daptomycin 2: Dose Dependent Susceptible Vancomycin resistant Enterococcus faecium Performing Organization Address City/State/Zipcode Ph one Number [facility] [address] [place] [address] [facility] [facility] * Anaerobic culture (10/27/2019 4:06 PM CDT) Result No anaerobes isolated [facility] Specimen Tissue Performing Organization Address [facility] one Number [address] [facility] * Type and screen, automated (10/27/2019 8:26 AM CDT) ABO/RH AUTOMATED (BEAKER) B POSITIVE [facility] Ab Scrn NEGATIVE [facility] Specimen Blood Performing Organization Address [facility] one Number [address] [address] [facility] * Hepatitis B surface antigen (10/26/2019 9:33 PM CDT) HBsAg Screen Nonreactive Nonreactive [facility] Specimen Blood Narrative Performed At Specimen is considered negative for HBsAg. [facility] Performing Organization Address [facility] one Number [place] [address] [address] [phone] [place] [address] * SARS-CoV2/RT-PCR (Asymptomatic ONLY) (10/26/2019 6:07 PM CDT) SARS-COV2/RT-PCR Not Detected Not Detected, Negative [facility] SARS-COV-2 PERFORMING LAB [facility] Specimen Other Narrative Performed At Negative results do not preclude SARS-C oV-2 infection and should not be used as [facility] the sole basis for patient management decisions. Nega tive results must be [facility] combined with clinical observations, pa tient history, and epidemiological information. A false negative result ma y occur if a specimen is improperly collected, transported or handled. The limit of detection for this assay i s 250 copies/mL. This SARS CoV-2 test is a rapid, real-t basim RT-PCR test intended for the qualitative detection of nucleic acid f rom SARS-CoV-2 in a nasopharyngeal swab specimen collected from individuals raoul pected of COVID-19 by their healthcare provider. This test has not been Food and Drug Ad ministration (FDA) cleared or approved and has been authorized by FDA under an Emergency Use Authorization (EUA). This EUA will be effective until the declara tion that circumstances exist justifying the authorization of the emergency use of in vitro diagnostic tests for detection and/or diagnosis of COVID-19 is terminated under Section 564(b)(2) of the Act or the EUA is revoked under Sec tion 564(g) of the Act. Fact Sheet for Healthcare Providers: https://www.[employer]/Documents/Xpert%20Xpress%20SARS%20CoV-2/Fact%20Sheets/30 2-3802%30ZHMY-ZOP-5%20HEALTHCARE%20PROV IDERS%20FACT%20SHEET.pdf Fact Sheet for Healthcare Patients: https://www.[employer]/Documents/Xpert%20Xpress%20SARS%20CoV-2/Fact%20Sheets/30 2-3801%78QPDM-RRI-4%20PATIENT%20FACT%20 SHEET.pdf Performing Laboratory: [place] [address] Performing Organization Address City/[facility] Ph one Number [place] [address] [facility] * CT abdomen pelvis without contrast (10/26/2019 3:00 PM CDT) Specimen Narrative Performed At FINAL REPORT [employer] CT abdomen and pelvis without contrast History: Postoperative complication Comparison: none Technique: serial axial imaging was per formed without intravenous contrast as per departmental protocol. Multiplanar images are reconstructed and reviewed when indicat ed. This CT examination is performed using one or more of the following dose reduction techniques: Automated exposure control, adjustment of the mA and /or kV according to patient size, and/or use of iterativ e reconstruction technique. Findings: Evaluation limited by lack of intraveno us contrast. Small bilateral pleural effusions. Partial visualization of enlarged lymph nodes within the posterior mediastinum measuring up to 18 mm in si ze. Previous cholecystectomy. Grossly unremarkable appearance of unen hanced liver, pancreas, spleen, and adrenal glands. The kidneys demonstrate moderate cortic al atrophy. There are numerous simple and hemorrhagic cysts involving both kidneys which are incompletely characterized by this stud y. These measure up to 2.5 cm in size. A 3 mm calculus is noted near the left ureterovesicular junction, without hydronephrosis. Prost ate gland appears mildly enlarged. No small or large bowel obstruction. No apparent bowel wall thickening. Evidence of prior surgery w ithin the left lower quadrant small bowel. No findings to indicate ac parrish appendicitis. Postsurgical changes are visualized wit hin the midline. There is a small amount of free fluid within the a bdomen.No fluid collection is seen. No aggressive osseous lesion. Impression: 1. Evidence of recent surgery, without postoperative fluid collection. 2. No small or large bowel obstruction is seen. 3. 3 mm calculus near the left ureterov esicular junction, without hydronephrosis. 4. Mildly enlarged prostate gland. 5. Partial visualization of mild lympha denopathy within the posterior mediastinum. 6. Small bilateral pleural effusions. Signed: Rosales Rosenbaum MD Report Verified Date/Time: 0 15:59:26 Reading Location: [facility] [id number] [facility] [employer] [facility] Reading Room Procedure Note Interface, External Ris In - 10/26/2019 4:01 PM CDT FINAL REPORT CT abdomen and pelvis without contrast History: Postoperative complication Comparison: none Technique: serial axial imaging was performed without intravenous contrast as per departmental protocol. Multiplanar images are reconstructed and reviewed when indicated. This CT examination is performed using one or more of the following dose reduction techniques: Automated exposure control, adjustment of the mA and /or kV according to patient size, and/or use of iterative reconstruction technique. Findings: Evaluation limited by lack of intravenous contrast. Small bilateral pleural effusions. Partial visualization of enlarged lymph nodes within the posterior mediastinum measuring up to 18 mm in size. Previous cholecystectomy. Grossly unremarkable appearance of unenhanced liver, pancreas, spleen, and adrenal glands. The kidneys demonstrate moderate cortical atrophy. There are numerous simple and hemorrhagic cysts involving both kidneys which are incompletely characterized by this study. These measure up to 2.5 cm in size. A 3 mm calculus is noted near the left ureterovesicular junction, without hydronephrosis. Prostate gland appears mildly enlarged. No small or large bowel obstruction. No apparent bowel wall thickening. Evidence of prior surgery within the left lower quadrant small bowel. No findings to indicate acute appendicitis. Postsurgical changes are visualized within the midline. There is a small amount of free fluid within the abdomen. No fluid collection is seen. No aggressive osseous lesion. Impression: 1. Evidence of recent surgery, without p ostoperative fluid collection. 2. No small or large bowel obstruction i s seen. 3. 3 mm calculus near the left ureterove sicular junction, without hydronephrosis. 4. Mildly enlarged prostate gland. 5. Partial visualization of mild lymphad enopathy within the posterior mediastinum. 6. Small bilateral pleural effusions. Signed: Rosales Rosenbaum MD Report Verified Date/Time: 10/26/2019 15:59:26 Reading Location: [facility] [id number] Ortho Consult Reading Room Performing Organization Address City/State/Zipcode Ph one Number [facility] * XR chest 1 view portable / bedside (10/26/2019 1:01 PM CDT) Specimen Narrative Performed At FINAL REPORT [facility] CLINICAL HISTORY: POST-OP PROBLEM TECHNIQUE: 1 view of the chest. COMPARISON: 12/08/2012 IMPRESSION: There are prominent interstitial lung m arkings without focal lobar consolidation. There is blunting of the right costophrenic angle. The cardiomediastinal silhouette is magnifi ed by technique. There are chronic right rib fractures. Signed: Flash Jimenez MD Report Verified Date/Time: 0 13:15:40 Reading Location: [facility] gy Reading Room Procedure Note Interface, External Ris In - 10/26/2019 1:17 PM CDT FINAL REPORT CLINICAL HISTORY: POST-OP PROBLEM TECHNIQUE: 1 view of the chest. COMPARISON: 12/08/2012 IMPRESSION: There are prominent interstitial lung markings without focal lobar consolidation. There is blunting of the right costophrenic angle. The cardiomediastinal silhouette is magnified by technique. There are chronic right rib fractures. Signed: Flash Jimenez MD Report Verified Date/Time: 10/26/2019 13:15:40 Reading Location: [facility] Reading Room Performing Organization Address City/State/Zipcode Ph one Number [facility] * Urinalysis w/Microscopic + Reflex to Culture (10/26/2019 11:58 AM CDT) Color, UA Yellow [facility] Clarity, UA Hazy [facility] Specific [place], UA 1.012 1.001 - 1.035 [facility] pH, UA 8.5 (H) 5.0 - 8.0 [facility] Protein, UA 200 mg/dL (A) Negative [facility] Glucose, UA 50 mg/dL (A) Negative [facility] Ketones, UA Negative Negative [facility] Bilirubin, UA Negative Negative [facility] Blood, UA Large (A) Negative [facility] Nitrite, UA Negative Negative [facility] Leukocytes, UA Small (A) Negative [facility] Urobilinogen, UA 0.2 0.2 - 1.0 mg/dL [facility] RBC, UA 26 /HPF [facility] WBC, UA 8 /HPF [facility] Bacteria, UA Rare [facility] Squam Epithel, UA 13 /HPF [facility] Specimen Source [facility] Specimen Urine Narrative Performed At Child Protective Investigator ID - [auto] [facility] Child Protective Investigator ID - [facility] Performing Organization Address City/[facility]/Zipcode Ph one Number [place] [id number] [facility] * PT/aPTT (10/26/2019 11:58 AM CDT) Protime 16.6 (H) 11.9 - 14.2 seconds [facility] INR 1.4 <=5.9 [facility] PTT 36.0 22.5 - 36.0 seconds [facility] Specimen Blood Narrative Performed At Effective 10/26/2018: PT Reference Range Change [facility] New: 11.9-14.2Previous: 11.7-14.7 [facility] MEDICAL CE NTER RECOMMENDED COUMADIN/WARFARIN INR THERA PY RANGES STANDARD DOSE: 2.0-3.0Includes: PRO PHYLAXIS for venous thrombosis, systemic embolization; TREATMENT for venous thro mbosis and/or pulmonary embolus. HIGH RISK: Target INR is 2.5-3.5 for pa tients wiht mechanical heart valves. Performing Organization Address [facility] one Number [place] [id number] [facility] * Troponin I (10/26/2019 11:58 AM CDT) Troponin I 0.01 0.00 - 0.03 ng/mL [facility] Specimen Blood Narrative Performed At Troponin I (TnI) levels must be interpreted in the co ntext of the presenting [facility] symptoms and the clinical findings. Elevated TnI leve ls indicate myocardial [facility] damage, but are not specific for ischem ic heart disease. Elevated TnI levels are seen in patients with other cardiac con ditions (including myocarditis and congestive heart failure), and slight T nI elevations occur in patients with other conditions, including sepsis, analisa al failure, acidosis, acute neurological disease, and persistent tachyarrhythmia . Child Protective Investigator ID - NTP Performing Organization Address [facility] one Number [place] [phone] [facility] * Lactic acid, venous (10/26/2019 11:58 AM CDT) Lactate, Venous 0.87 0.50 - 2.20 mmol/L [facility] Specimen Blood Narrative Performed At Child Protective Investigator ID - [facility] Performing Organization Address [facility] Ph one Number [place] [phone] [place] [address] * B-type Natriuretic Factor (BNP) (10/26/2019 11:58 AM CDT) BNP 864 (H) 0 - 100 pg/mL [facility] Specimen Blood Narrative Performed At Child Protective Investigator ID - [facility] Performing Organization Address [facility] Ph one Number [place] [phone] [place] [address] * Lipase (10/26/2019 11:58 AM CDT) Lipase 107 (H) 8 - 78 U/L [facility] Specimen Blood Narrative Performed At Child Protective Investigator ID - [facility] Performing Organization Address [facility] one [address] * Hepatic function panel (10/26/2019 11:58 AM CDT) Protein, Total 5.6 (L) 6.0 - 8.3 gm/dL [facility] Albumin 2.3 (L) 3.5 - 5.0 g/dL [facility] Total Bilirubin 0.4 0.2 - 1.2 mg/dL [facility] Bilirubin, Direct 0.3 0.1 - 0.5 mg/dL [facility] Alkaline Phosphatase 130 40 - 150 U/L [facility] AST 18 5 - 34 U/L [facility] ALT 6 6 - 55 U/L [facility] Specimen Blood Narrative Performed At Child Protective Investigator ID - NTP [facility] Performing Organization Address City/State/[facility] Ph one Number [facility] [id number] [place], [place] [address] [facility] * ECG 12 lead (10/26/2019 11:43 AM CDT) Only the most recent of 2 results within the time period is included. Specimen Narrative Performed At Ventricular Rate 75 BPM GE MUSE Atrial Rate 75 BPM P-R Interval 134 ms QRS Duration 78 ms Q-T Interval 386 ms QTC Calculation(Bazett) 431 ms P [place] 37 degrees R [place] -6 degrees T [place] 36 degrees Normal sinus rhythm Septal infarct (cited on or before ) Abnormal ECG When compared with ECG of 26-OCT-2019 1 1:43, No significant change was found Confirmed by Anila GRUBER, VIDA ([id number]) on 10/27/2019 9:01:01 AM Procedure Note Interface, External Ris In - 10/27/2019 9:01 AM CDT Ventricular Rate 75 BPM Atrial Rate 75 BPM P-R Interval 134 ms QRS Duration 78 ms Q-T Interval 386 ms QTC Calculation(Bazett) 431 ms P [place] 37 degrees R [place] -6 degrees T [place] 36 degrees Normal sinus rhythm Septal infarct (cited on or before 15-NOV-2012) Abnormal ECG When compared with ECG of 26-OCT-2019 11:43, No significant change was found Confirmed by Anila GRUBER, VIDA ([id number]) on 10/27/2019 9:01:01 AM Performing Organization Address City/State[facility] Number GE MUSE after 11/05/2018 Insurance Payer Benefit Subscriber ID Type Phone Address Plan / Group MEDICARE MEDICARE A xxxxxxxxxxx Medicare B CDCREVIEW CDCREVIEW xxxxxxxx [address] [place] [place] [address] Advance Directives For more information, please contact: [facility] [address] [place], [place] [id number] Date Inactivated Comments Code Status Date Activated 12/08/2012 11:29 PM All possible means of suppor t including;cardiac massage, mechanical ventilation, and defibrillation will be used to support life. Code ONE 12/08/2012 12:42 PM 11/15/2012 3:35 PM All possible means of suppor t including;cardiac massage, mechanical ventilation, and defibrillation will be used to support life. Code ONE 11/15/2012 10:38 AM
--- OUTSIDE RECORDS SUMMARY | 2019-11-06 19:21 | XMS REPORT | Continuity of Care Document ---
Author Author [facility] t Organization [facility] t Address [address] [place] [address] Phone Unavailable Care Team Providers Care Boom Crane Operator Name Role Phone SUNSHINE ROTH, MD KAUR PCP Arturo ROTH, Yelena Palacio Attphys Arnel ROTH, Dar Attphys Juwan ROTH, Rod Altson Attphys Hattie ROTH, Khalif Manuel Attphys [phone] YELENA HERRERA Attphys Unavailable SIRIA DENIS Attphys Unavailable Kathia SHULTZ Attphys Unavailable NATASHA, Arcadio FERNANDEZ Attphys Unavailable DAR PAGAN Admphys Unavailable SIRIA DENIS Admphys Unavailable DAGIGI, S JIM Admphys Unavailable Payers Payer Name Policy Type Policy Number Effective Date Expiration Date S cole MEDICAREMEDICARE A BxxxxxxxxxxxMedicare xxxxxxxxxxx [facility] CDCREVIEWCDCREVIEW[place] [address] xxx xxxxx [facility] Medicare A & B NA 2008 00:00:00 [facility] Problems Condition Name Condition Details Condition Category Status Onset Date Resolution Date Last Treatment Date Treating Clinician Comments Source Wound dehiscence, surgical, initial encounter Wound de hiscence, surgical, initial encounter Disease Active 2019-11-01 00:00:00 [facility] Bleeding Bleeding Disease Active 2019-10-26 00:00:00 [facility] ESRD (end stage renal disease) on dialysis ESRD (end s tage renal disease) on dialysis Disease Active 2012-05-10 00:00:00 [facility] Hypertensive kidney disease Hypertensive kidney disease Disease Active 2012-05-10 00:00:00 [facility] Bronchitis Bronchitis Problem Active [facility] Chest pain Chest pain Problem Active [facility] Dehydration Dehydration Problem Active [facility] Diarrhea Diarrhea Problem Active [facility] Allergies, Adverse Reactions, Alerts Allergy Name Allergy Type Status Severity Reaction(s) Onset Date Inacti ve Date Treating Clinician Comments Source No Known Allergies DA Active U 2015-02-07 00:00:00 [facility] Social History Social Habit Start Date Stop Date Quantity Comments Source Sex Assigned At [facility] Smoking Status Start Date Stop Date Source Current some day smoker 2019-10-27 00:00:00 [facility] Medications Ordered Medication Name Filled Medication Name Start Date Stop Da te Current Medication? Ordering Clinician Indication Dosage Frequency Signature (SIG) Comments Components Source epoetin char-epbx (RETACRIT) 4,000 unit/mL Soln injection 2019-11-03 00:00:00 Yes anemia in chronic kidney disease 4000U Inject 1 mL (4,000 Units total) subcutaneously 3 (three) times a week at bedtime MON/WED/WED. [facility] cefTRIAXone (ROCEPHIN) 1 g in dextrose 5% (D5W) 50 mL (DUPLE X) IVPB 2019-11-02 11:52:14 2019-11-02 00:00:00 No 1g Q.5D Inject 1 g intravenously 2 (two) times daily. [facility] heparin sodium,porcine (HEPARIN, PORCINE,) 5,000 unit/mL (1 mL) Crtg 2019-11-02 11:52:14 2019-11-02 00:00:00 No QD Inject as directed daily. [facility] metroNIDAZOLE (FLAGYL) IVPB 500 mg in sodium chloride 0.9% ( NS) 100 mL 2019-11-02 11:52:14 2019-11-02 00:00:00 No 500mg Inject 500 mg intravenously. [facility] heparin injection 5,000 units/mL 2019-11-02 00:00:00 Yes 5000U Inject 1 mL (5,000 Units total) subcutaneously every 12 (twelve) hours. [facility] docusate sodium (COLACE) 100 MG capsule 2019-11-02 00:00:00 Yes 100mg Q.5D Take 1 capsule (100 mg total) by mouth 2 (two) times daily. [facility] HYDROcodone-acetaminophen (NORCO 7.5-325) 7.5-325 mg per tab let 2019-11-02 00:00:00 2019-11-09 23:59:00 Yes 1{tbl} Take 1 tablet by mouth every 6 (six) hours as needed (moderate to severe pain) for up to 7 days. Max Daily Amount: 4 tablets [facility] linezolid (ZYVOX) 600 mg tablet 2019-11-02 00:00:00 23:59:00 Yes 600mg Take 1 tablet (600 m g total) by mouth every 12 (twelve) hours for 4 days. [facility] furosemide (LASIX) 80 MG tablet 2019-10-26 12:22:52 Yes 80mg Q.5D Take 80 mg by mouth 2 (two) times daily. [facility] midodrine (PROAMATINE) 10 MG tablet 2019-10-26 12:18:14 Yes 10mg [id number] Take 10 mg by mouth 3 (three) times daily. [facility] pantoprazole (PROTONIX) 40 MG tablet 2019-10-26 12:18:14 Ye s 40mg Take 40 mg by mouth every 12 (twelve) hours. [facility] ondansetron (ZOFRAN) 4 MG tablet 2019-10-26 12:18:14 Yes 4mg Take 4 mg by mouth every 6 (six) hours as needed for Nausea. [facility] paricalcitol (ZEMPLAR) 1 MCG capsule 2019-10-26 12:18: 07 2019-10-26 00:00:00 No Take by mouth. Take 1 by mouth every oth er day. [facility] multivitamin (MULTIVITAMIN) per tablet 2019-09-30 8 12:18:04 2019-10-26 00:00:00 No 1{tbl} QD Take 1 tablet by mouth daily. [facility] levocetirizine (XYZAL) 5 MG tablet 2019-10-26 12:18:00 00:00:00 No 5mg QD Take 5 mg by mouth every evening. [facility] IPRATROPIUM/ALBUTEROL SULFATE (COMBIVENT) 18-103 mcg/Actuati on Aero 2019-10-26 12:17:56 2019-10-26 00:00:00 No Inhale into the lungs. Inhale as directed. [facility] fluticasone-salmeterol (ADVAIR) 250-50 mcg/dose diskus inhal er 2019-10-26 12:17:52 2019-10-26 00:00:00 No Inhale into the lungs. Take as directed. [facility] doxazosin (CARDURA) 2 MG tablet 2019-10-26 12:17:46 00:00:00 No 2mg QD Take 2 mg by mouth nightly. [facility] CALCIUM CARBONATE (TUMS ORAL) 2019-10-26 12:17:24 2019-10-26 00: 00:00 No Take by mouth. Take with each meal regularly. [facility] aspirin 325 MG tablet 2019-10-26 12:17:18 2019-10-26 00:00:00 No 325mg QD Take 325 mg by mouth daily. [facility] acetaminophen (TYLENOL) 325 MG tablet 2019-10-26 11:29:08 Y es 650mg Take 650 mg by mouth every 6 (six) hours as needed for Pain. [facility] Pantoprazole Sod (Protonix) 40 Mg/Ml SUSP Pantoprazole Sod (Protonix) 40 Mg/Ml SUSP 2019-10-19 09:19:00 Yes 40 Daily@0600 [facility] Pantoprazole Sodium (Protonix) 40 Mg TABLET. Pantopr azole Sodium (Protonix) 40 Mg TABLET. 2017-06-19 05:53:00 2019-10-08 00:00:00 No 40 Every 12 Hours [facility] Sucralfate Sucralfate 2017-06-19 05:53:00 2019-10-08 00:00:00 No 1 Before Meals And At Bedtime [facility] Tamsulosin Hcl (Flomax*) 0.4 Mg CAP Tamsulosin Hcl (Flomax*) 0.4 Mg CAP 2017-06-19 05:53:00 2019-10-08 00:00:00 No .4 Daily [facility] Metronidazole (Flagyl) 500 Mg TABLET Metronidazole (Flagyl) 500 Mg TABLET 2017-06-01 07:38:00 2017-06-19 00:00:00 No 500 Three Times A Day [facility] Levofloxacin (Levaquin) 500 Mg TABLET Levofloxacin (Levaquin ) 500 Mg TABLET 2017-06-01 07:19:00 2019-10-08 00:00:00 No 500 Daily [facility] Lisinopril Lisinopril 2017-06-01 07:11:00 2019-10-08 00:00:00 No 10 Daily [facility] Benzonatate (Tessalon Perle) 100 Mg CAPSULE Benzonatat e (Tessalon Perle) 100 Mg CAPSULE 2017-06-01 07:10:00 2019-10-08 00:00:00 No 100 Three Times A Day as needed for Cough [facility] Hydrocodone/Chlorpheniramine Hydrocodone/Chlorpheniramine -02 07:10:2019-10-08 00:00:00 No 5 Every 12 Hours as ne eded for Cough [facility] Benzonatate (Tessalon Perle) 100 Mg CAPSULE Benzonatat e (Tessalon Perle) 100 Mg CAPSULE 2016-09-11 09:26:00 2017-05-27 00:00:00 No 100 Three Times A Day [facility] Famotidine Famotidine 2016-09-11 09:26:00 2017-05-27 00:00:00 No 20 Twice Daily Before Meals [facility] Guaifenesin/Dextromethorphan (Mucinex Dm Er 600-30 Mg Tablet) 1 Each TAB.ER.12H Guaifenesin/Dextromethorphan (Mucinex Dm Er 600-30 Mg Tablet) 1 Each TAB.ER.12H 2016-09-11 09:26:00 2017-05-27 00:00:00 No 1 Every 8 Hours [facility] Levofloxacin (Levaquin) 500 Mg TABLET Levofloxacin (Levaquin ) 500 Mg TABLET 2016-09-11 09:26:00 2017-05-27 00:00:00 No 500 Daily [facility] pravastatin (PRAVACHOL) 40 MG tablet 2012-05-13 11:53:28 Ye s 40mg QD Take 40 mg by mouth daily. [facility] rOPINIRole (REQUIP) 0.5 MG tablet 2012-05-13 11:53:28 Yes .5mg QD Take 0.5 mg by mouth daily. [facility] tamsulosin (FLOMAX) 0.4 mg Cp24 2012-05-13 11:53:28 Yes .4mg QD Take 0.4 mg by mouth nightly. [facility] Famotidine Famotidine Yes 20 Twice A Day [facility] Furosemide Furosemide Yes 80 Daily [facility] Hydroxyzine Pamoate Hydroxyzine Pamoate Yes 1 Three Times A Day [facility] Midodrine Hcl Midodrine Hcl Yes 10 Three Times A Day [facility] Naproxen Naproxen Yes 500 Twice A Day [facility] Pravastatin Sodium Pravastatin Sodium Yes 40 Be dtime [facility] Ropinirole Hcl (Requip) 0.5 Mg TAB Ropinirole Hcl (Requip) 0.5 Mg TAB Yes 5 Three Times A Day [facility] Tamsulosin Hcl Tamsulosin Hcl Yes .4 Twice A Da y [facility] Levocetirizine Dihydrochloride (Xyzal) 5 Mg TABLET Lev ocetirizine Dihydrochloride (Xyzal) 5 Mg TABLET 2019-10-08 00:00:00 No 5 Bedtime [facility] Aspirin (Aspirin Enteric Coated) 325 Mg TABEC Aspirin (Aspirin Enteric Coated) 325 Mg TABEC 2017-06-19 00:00:00 No 325 Daily [facility] Doxazosin Mesylate Doxazosin Mesylate 2016-09-07 00:00:00 No 2 Daily [facility] Paricalcitol (Zemplar) 2 Mcg CAPSULE Paricalcitol (Zemplar) 2 Mc g CAPSULE 2016-09-07 00:00:00 No 2 Daily [facility] Tamsulosin Hcl Tamsulosin Hcl 2016-09-07 00:00:00 No .8 Daily [facility] Amoxicillin/Potassium Clav (Amox Tr-K Clv 875-125 Mg T ab) 1 Each TABLET Amoxicillin/Potassium Clav (Amox Tr-K Clv 875-125 Mg Tab) 1 Each TABLET 2013-10-14 00:00:00 No Daily [facility] Aspirin/Calcium Carbonate/Mag (Aspirin Buffered 325 Mg Tab) 325 Mg TABLET Aspirin/Calcium Carbonate/Mag (Aspirin Buffered 325 Mg Tab) 325 Mg TABLET 2013-10-14 00:00:00 No Daily [facility] Aspirin (Aspir 81) 81 Mg TABLET. Aspirin (Aspir 81) 81 Mg TABTyron BOWEN 2013-01-08 00:00:00 No 325 Daily [facility] Aspirin/Calcium Carbonate/Mag (Aspirin Buffered 325 Mg Tab) 325 Mg TABLET Aspirin/Calcium Carbonate/Mag (Aspirin Buffered 325 Mg Tab) 325 Mg TABLET 2013-01-08 00:00:00 No Daily [facility] Metoprolol Tartrate Metoprolol Tartrate 2012-05-24 00:00:00 No [facility] Paricalcitol (Zemplar) 2 Mcg CAPSULE Paricalcitol (Zemplar) 2 Mc g CAPSULE 2012-05-24 00:00:00 No [facility] Vital Signs Vital Name Observation Time Observation Value Comments Source Systolic blood pressure 2019-11-02 11:40:00 128 mm[Hg] [facility] Diastolic blood pressure 2019-11-02 11:40:00 62 mm[Hg] [facility] Heart rate 2019-11-02 11:40:00 98 /min [facility] Body temperature 2019-11-02 11:40:00 36.67 Xiomara [facility] Respiratory rate 2019-11-02 11:40:00 18 /min [facility] Oxygen saturation in Arterial blood by Pulse oximetry 11-01 11:40:00 95 [facility] Measured 2019-11-02 05:14:00 80.604 kg [facility] BMI 2019-11-02 05:14:00 27.02 kg/m2 [facility] Body height 2019-10-26 11:14:00 172.7 cm [facility] Body Temperature 2019-10-19 11:44:00 97.9 [degF] [facility] BMI (Body Mass Index) 2019-10-14 07:54:00 27.8 kg/m2 [facility] Weight 2019-10-08 20:55:00 183 [lb_av] [facility] Procedures Procedure Date / Time Performed Performing Clinician Sour e RHYTHM STRIP - SCAN 2019-11-06 09:11:24 Provider, Default Scancarolina rader [facility] REPORT OF PROCEDURE - ENDOSCOPY SCAN 2019-11-06 09:11:21 Pro vider, Default Scanning [facility] BASIC METABOLIC PANEL (7) 2019-11-02 04:26:00 Dar Pagan CH, I [facility] CBC W/PLT COUNT & AUTO DIFFERENTIAL 2019-11-02 04:26:00 Giveon, [facility] HEMODIALYSIS INPATIENT 2019-11-01 14:16:02 Ann Cobian JERRICA [facility] POCT-GLUCOSE METER 2019-10-30 18:27:00 Arnel [facility] POCT-GLUCOSE METER 2019-10-30 11:24:00 Dar Pagan [facility] HEMODIALYSIS INPATIENT 2019-10-30 09:22:47 Diana Fontenot [facility] BASIC METABOLIC PANEL (7) 2019-10-30 04:38:00 Dar Pagan CH [facility] MAGNESIUM 2019-10-30 04:38:00 Arnel [facility] PHOSPHORUS 2019-10-30 04:38:00 Arnel [facility] CBC W/PLT COUNT & AUTO DIFFERENTIAL 2019-10-30 04:38:00 Arnel [facility] BASIC METABOLIC PANEL (7) 2019-10-29 03:37:00 Dar Pagan CH [facility] MAGNESIUM 2019-10-29 03:37:00 Arnel [facility] PHOSPHORUS 2019-10-29 03:37:00 Arnel [facility] CBC W/PLT COUNT & AUTO DIFFERENTIAL 2019-10-29 03:37:00 Arnel [facility] TRANSFUSION SERVICE REPORT - SCAN 2019-10-28 17:51:28 Provid er, Default Scanning [facility] BASIC METABOLIC PANEL (7) 2019-10-28 03:02:00 Dar Pagan CH [facility] MAGNESIUM 2019-10-28 03:02:00 ArnelRancho [facility] PHOSPHORUS 2019-10-28 03:02:00 ArnelRancho [facility] CBC W/PLT COUNT & AUTO DIFFERENTIAL 2019-10-28 03:02:00 Arnel [facility] HEMODIALYSIS INPATIENT 2019-10-27 23:07:05 Diana Fontenot [facility] SURGICALLY OBTAINED CULTURE + GRAM STAIN 2019-10-27 16:06:18 Kaleb Kuhn [facility] ANAEROBIC CULTURE 2019-10-27 16:06:16 Kaleb Kuhn [facility] POCT-GLUCOSE METER 2019-10-27 13:40:00 Arnel Dar [facility] EXPLORATION,WOUND TRUNK ANTERIOR 2019-10-27 13:15:00 Mireya Kuhn [facility] BASIC METABOLIC PANEL (7) 2019-10-27 08:26:00 Dar Pagan CH, I [facility] MAGNESIUM 2019-10-27 08:26:00 Arnel [facility] TYPE AND SCREEN, AUTOMATED 2019-10-27 08:26:00 Dar Pagan [facility] CBC W/PLT COUNT & AUTO DIFFERENTIAL 2019-10-27 08:26:00 Arnel [facility] HEPATITIS B SURFACE ANTIGEN 2019-10-26 21:33:00 Diana Fontenot [facility] SARS-COV2/RT-PCR ([facility]) 2019-10-26 18:07:[address] Osbal[address]io [facility] CT ABDOMEN/PELVIS WITHOUT IV CONTRAST 2019-10-26 15:00:00 Devika Muñoz [facility] XR CHEST 1 VIEW PORTABLE/BEDSIDE 2019-10-26 13:01:00 Pia Herrera [facility] BASIC METABOLIC PANEL (7) 2019-10-26 11:58:00 Pia Herrera [facility] LACTIC ACID, VENOUS 2019-10-26 11:58:00 Pia Herrera [facility] TROPONIN I 2019-10-26 11:58:00 Pia Herrera CH [facility] B-TYPE NATRIURETIC FACTOR (BNP) 2019-10-26 11:58:00 Raquel Herrera [facility] PT/APTT 2019-10-26 11:58:00 Pia Herrera CH [facility] LIPASE 2019-10-26 11:58:00 FrancomilymashaPia I [facility] HEPATIC FUNCTION PANEL 2019-10-26 11:58:00 Pia Herrera [facility] URINALYSIS W/ REFLEX URINE CULTURE 2019-10-26 11:58:00 Pia Decker [facility] CBC W/PLT COUNT & AUTO DIFFERENTIAL 2019-10-26 11:58:00 Francoarcadio Pia boothe [facility] ECG 12-LEAD 2019-10-26 11:43:46 Unknown, Hl7 [facility] ECG 12-LEAD 2019-10-26 11:43:12 Unknown, Hl7 Doctor [facility] Computed tomography of abdomen and pelvis with contrast 00:00:00 [facility] Computed tomography angiography of abdom en and pelvis without then with contrast 2019-10-10 00:00:00 [facility] Computed tomography of abdomen and pelvis with contrast 00:00:00 [facility] Encounters Start Date/Time End Date/Time Encounter Type Admission Type Attendi [facility] Care Department Encounter ID Source 2019-10-09 01:18:00 2019-10-19 14:02:00 Discharged Inpatient 1 SIRIA DENIS [facility] [id number] [facility] 2019-06-10 17:18:00 2019-06-10 20:07:00 Departed Emergency [facility] [id number] [facility] [place] [place] dical Maurice 2018-12-13 08:41:00 2018-12-28 23:59:00 Discharged Recurring [facility] [id number] [facility] Results Test Description Test Time Test Comments Results Result Comments Source Basic Metabolic Panel 2019-11-02 05:35:00 Test Item Sodium (test code = 2951-2) 136 meq/L 136-145 Potassium (test code = 2823-3) 4.1 meq/L 3.5-5.1 Chloride (test code = 2075-0) 102 meq/L 98-107 CO2 (test code = 8-9) 28 meq/L 22-29 BUN (test code = 3094-0) 14 mg/dL 7-21 Creatinine (test code = 2160-0) 4.84 mg/dL 0.57-1.25 H Glucose (test code = 2345-7) 88 mg/dL 70-105 Calcium (test code = 15647-4) 7.5 mg/dL 8.4-10.2 L EGFR (test code = 47666-5) 12 mL/min/1.73 sq m ESTIMATED GFR IS NOT ACCURATE CREATININE CLEARANCE IN PREDICTING GLOMERULAR FILTRATION RATE. ESTIMATED GFR IS NOT APPLICABLE FOR DIALYSIS PATIENTS. CHAPIS (test code = CHAPIS) [employer] ID - [place] Lab Interpretation (test code = 51818-5) [facility] [id number] 05:35:00* Test Item Value Reference Range Interpretation Comments SODIUM (BEAKER) (test code = 381) 136 meq/L 136-145 POTASSIUM (BEAKER) (test code = 379) 4.1 meq/L 3.5-5.1 CHLORIDE (BEAKER) (test code = 382) 102 meq/L 98-107 CO2 (BEAKER) (test code = 355) 28 meq/L 22-29 BLOOD UREA NITROGEN (BEAKER) (test code = 354) 14 mg/dL 7-21 CREATININE (BEAKER) (test code = 358) 4.84 mg/dL 0.57-1.25 H GLUCOSE RANDOM (BEAKER) (test code = 652) 88 mg/dL 70-105 CALCIUM (BEAKER) (test code = 697) 7.5 mg/dL 8.4-10.2 L EGFR (BEAKER) (test code = 1092) 12 mL/min/1.73 sq m ESTIMATED GFR IS NOT ACCURATE CREATININE CLEARANCE IN PREDICTING GLOMERULAR FILTRATION RATE. ESTIMATED GFR IS NOT APPLICABLE FOR DIALYSIS PATIENTS. [employer] ID - LACBC with platelet count + automated [id number] 05:10:00* Test Item Value Reference Range Interpretation Comments WBC (test code = 6690-2) 8.1 3.5- 10.5 K/L RBC (test code = 789-8) 2.82 4.63- 6.08 M/L L MCHC (test code = 786-4) 32.0 32.3- 36.5 GM/DL L Hematocrit (test code = 4544-3) 26.9 % 40.1-51 L MCV (test code = 787-2) 95.4 fL 79-92.2 H MCH (test code = 785-6) 30.5 pg 25.7-32.2 RDW (test code = 788-0) 13.8 % 11.6-14.4 Platelets (test code = 777-3) 245 150- 450 K/CU MM MPV (test code = 56664-8) 10.1 fL 9.4-12.4 nRBC (test code = 413) 0 0- 0 /100 WBC % Neutros (test code = 429) 67 % % Lymphs (test code = 430) 15 % % Monos (test code = 431) 8 % % Eos (test code = 432) 7 % % Baso (test code = 437) 1 % # Neutros (test code = 670) 5.47 1.78- 5.38 K/L H # Lymphs (test code = 414) 1.25 1.32- 3.57 K/L L # Monos (test code = 415) 0.67 0.30- 0.82 K/L # Eos (test code = 416) 0.56 0.04- 0.54 K/L H # Baso (test code = 417) 0.11 0.01- 0.08 K/L H Immature Granulocytes-Relative (test code = 2801) 1 % 0-1 Lab Interpretation (test code = 13448-0) Abnormal [facility] W/PLT COUNT & AUTO [id number] 05:10:00* Test Item Value Reference Range Interpretation Comments WHITE BLOOD CELL COUNT (BEAKER) (test code = 775) 8.1 K/ L 3.5- 10.5 RED BLOOD CELL COUNT (BEAKER) (test code = 761) 2.82 M/ L 4.63-6 .08 L HEMOGLOBIN (BEAKER) (test code = 410) 8.6 GM/DL 13.7-17.5 L HEMATOCRIT (BEAKER) (test code = 411) 26.9 % 40.1-51.0 L MEAN CORPUSCULAR VOLUME (BEAKER) (test code = 753) 95.4 fL 79. 0-92.2 H MEAN CORPUSCULAR HEMOGLOBIN (BEAKER) (test code = 751) 30.5 pg 25.7-32.2 MEAN CORPUSCULAR HEMOGLOBIN CONC (BEAKER) (test code = 752) 32.0 GM/DL 32.3-36.5 L RED CELL DISTRIBUTION WIDTH (BEAKER) (test code = 412) 13.8 % 11.6-14.4 PLATELET COUNT (BEAKER) (test code = 756) 245 K/CU MM 150-450 MEAN PLATELET VOLUME (BEAKER) (test code = 754) 10.1 fL 9.4-12 .4 NUCLEATED RED BLOOD CELLS (BEAKER) (test code = 413) 0 /100 WBC 0 -0 NEUTROPHILS RELATIVE PERCENT (BEAKER) (test code = 429) 67 % LYMPHOCYTES RELATIVE PERCENT (BEAKER) (test code = 430) 15 % MONOCYTES RELATIVE PERCENT (BEAKER) (test code = 431) 8 % EOSINOPHILS RELATIVE PERCENT (BEAKER) (test code = 432) 7 % BASOPHILS RELATIVE PERCENT (BEAKER) (test code = 437) 1 % NEUTROPHILS ABSOLUTE COUNT (BEAKER) (test code = 670) 5.47 K/ L 1.78-5.38 H LYMPHOCYTES ABSOLUTE COUNT (BEAKER) (test code = 414) 1.25 K/ L 1.32-3.57 L MONOCYTES ABSOLUTE COUNT (BEAKER) (test code = 415) 0.67 K/ L 0. 30-0.82 EOSINOPHILS ABSOLUTE COUNT (BEAKER) (test code = 416) 0.56 K/ L 0.04-0.54 H BASOPHILS ABSOLUTE COUNT (BEAKER) (test code = 417) 0.11 K/ L 0. 01-0.08 H IMMATURE GRANULOCYTES-RELATIVE PERCENT (BEAKER) (test code = 2801) 1 % 0-1 Anaerobic [id number] 13:48:00* Test Item Value Reference Range Interpretation Comments Result (test code = 6463-4) No anaerobes isolated [facility] [id number] 13:48:00* Test Item Value Reference Range Interpretation Comments CULTURE (BEAKER) (test code = 1095) No anaerobes isolated POC-Glucose [id number] 18:38:00* Test Item Value Reference Range Interpretation Comments POC-Glucose Meter (test code = 1538) 120 mg/dL 70-110 H : TESTED AT [facility] [address] [facility], [address]: [employer]/Shovel Log Loader Operator ID = [id number] for Ann Bernard Lab Interpretation (test code = 33434-3) Abnormal [facility] [id number] 18:38:00* Test Item Value Reference Range Interpretation Comments POC-GLUCOSE METER (BEAKER) (test code = 1538) 120 mg/dL 70-110 H : TESTED AT [place] [id number] [facility], [address]: [employer]Shovel Log Loader Operator ID = [id number] for Ann Bernard POCT-GLUCOSE [id number] 11:35:00* Test Item Value Reference Range Interpretation Comments POC-GLUCOSE METER (BEAKER) (test code = 1538) 77 mg/dL 70-110 : TESTED AT [place] [id number] [facility], [address]: [employer]/Shovel Log Loader Operator ID = [id number] for DOM KULKARNI SURGICALLY OBTAINED CULTURE + GRAM [id number] 10:33:00* Test Item Value Reference Range Interpretation Comments CULTURE (BEAKER) (test code = 1095) A 2+ Vancomycin resistant Enterococcus faecium GRAM STAIN RESULT (BEAKER) (test code = 1123) <1+ WBCs GRAM STAIN RESULT (BEAKER) (test code = 49277) No organisms seen BASIC METABOLIC [id number] 05:38:00* Test Item Value Reference Range Interpretation Comments SODIUM (BEAKER) (test code = 381) 132 meq/L 136-145 L POTASSIUM (BEAKER) (test code = 379) 4.4 meq/L 3.5-5.1 CHLORIDE (BEAKER) (test code = 382) 97 meq/L 98-107 L CO2 (BEAKER) (test code = 355) 25 meq/L 22-29 BLOOD UREA NITROGEN (BEAKER) (test code = 354) 28 mg/dL 7-21 H CREATININE (BEAKER) (test code = 358) 7.45 mg/dL 0.57-1.25 H GLUCOSE RANDOM (BEAKER) (test code = 652) 82 mg/dL 70-105 CALCIUM (BEAKER) (test code = 697) 7.5 mg/dL 8.4-10.2 L EGFR (BEAKER) (test code = 1092) 7 mL/min/1.73 sq m ESTIMATED GFR IS NOT ACCURATE CREATININE CLEARANCE IN PREDICTING GLOMERULAR FILTRATION RATE. ESTIMATED GFR IS NOT APPLICABLE FOR DIALYSIS PATIENTS. [employer] ID - JESÚS [id number] 05:37:00* Test Item Value Reference Range Interpretation Comments Magnesium (test code = 71461-7) 1.6 mg/dL 1.6-2.6 CHAPIS (test code = CHAPIS) [employer] ID - [id number] L Lab Interpretation (test code = 60506-8) [facility] Test Item Value Reference Range Interpretation Comments Phosphorus (test code = 2777-1) 4.2 mg/dL 2.3-4.7 CHAPIS (test code = CHAPIS) [employer] ID - JESÚS L Lab Interpretation (test code = 03449-1) [facility] 05:37:[facility]* Test Item Value Reference Range Interpretation Comments PHOSPHORUS (BEAKER) (test code = 604) 4.2 mg/dL 2.3-4.7 [employer] ID - JESÚS [id number] 05:37:00* Test Item Value Reference Range Interpretation Comments MAGNESIUM (BEAKER) (test code = 627) 1.6 mg/dL 1.6-2.6 [employer] ID Kristopher JESÚS LCBC W/PLT COUNT & AUTO [id number] 05:06:00* Test Item Value Reference Range Interpretation Comments WHITE BLOOD CELL COUNT (BEAKER) (test code = 775) 7.0 K/ L 3.5- 10.5 RED BLOOD CELL COUNT (BEAKER) (test code = 761) 3.44 M/ L 4.63-6 .08 L HEMOGLOBIN (BEAKER) (test code = 410) 10.0 GM/DL 13.7-17.5 L HEMATOCRIT (BEAKER) (test code = 411) 32.5 % 40.1-51.0 L MEAN CORPUSCULAR VOLUME (BEAKER) (test code = 753) 94.5 fL 79. 0-92.2 H MEAN CORPUSCULAR HEMOGLOBIN (BEAKER) (test code = 751) 29.1 pg 25.7-32.2 MEAN CORPUSCULAR HEMOGLOBIN CONC (BEAKER) (test code = 752) 30.8 GM/DL 32.3-36.5 L RED CELL DISTRIBUTION WIDTH (BEAKER) (test code = 412) 13.3 % 11.6-14.4 PLATELET COUNT (BEAKER) (test code = 756) 287 K/CU MM 150-450 MEAN PLATELET VOLUME (BEAKER) (test code = 754) 9.5 fL 9.4-12 .4 NUCLEATED RED BLOOD CELLS (BEAKER) (test code = 413) 0 /100 WBC 0 -0 NEUTROPHILS RELATIVE PERCENT (BEAKER) (test code = 429) 72 % LYMPHOCYTES RELATIVE PERCENT (BEAKER) (test code = 430) 12 % MONOCYTES RELATIVE PERCENT (BEAKER) (test code = 431) 8 % EOSINOPHILS RELATIVE PERCENT (BEAKER) (test code = 432) 7 % BASOPHILS RELATIVE PERCENT (BEAKER) (test code = 437) 1 % NEUTROPHILS ABSOLUTE COUNT (BEAKER) (test code = 670) 4.98 K/ L 1.78-5.38 LYMPHOCYTES ABSOLUTE COUNT (BEAKER) (test code = 414) 0.83 K/ L 1.32-3.57 L MONOCYTES ABSOLUTE COUNT (BEAKER) (test code = 415) 0.54 K/ L 0. 30-0.82 EOSINOPHILS ABSOLUTE COUNT (BEAKER) (test code = 416) 0.45 K/ L 0.04-0.54 BASOPHILS ABSOLUTE COUNT (BEAKER) (test code = 417) 0.09 K/ L 0. 01-0.08 H IMMATURE GRANULOCYTES-RELATIVE PERCENT (BEAKER) (test code = 2801) 1 % 0-1 BASIC METABOLIC [id number] 05:50:00* Test Item Value Reference Range Interpretation Comments SODIUM (BEAKER) (test code = 381) 133 meq/L 136-145 L POTASSIUM (BEAKER) (test code = 379) 3.9 meq/L 3.5-5.1 CHLORIDE (BEAKER) (test code = 382) 96 meq/L 98-107 L CO2 (BEAKER) (test code = 355) 24 meq/L 22-29 BLOOD UREA NITROGEN (BEAKER) (test code = 354) 24 mg/dL 7-21 H CREATININE (BEAKER) (test code = 358) 5.91 mg/dL 0.57-1.25 H GLUCOSE RANDOM (BEAKER) (test code = 652) 80 mg/dL 70-105 CALCIUM (BEAKER) (test code = 697) 7.7 mg/dL 8.4-10.2 L EGFR (BEAKER) (test code = 1092) 9 mL/min/1.73 sq m ESTIMATED GFR IS NOT ACCURATE CREATININE CLEARANCE IN PREDICTING GLOMERULAR FILTRATION RATE. ESTIMATED GFR IS NOT APPLICABLE FOR DIALYSIS PATIENTS. [employer] ID - JESÚS [id number] 05:30:00* Test Item Value Reference Range Interpretation Comments PHOSPHORUS (BEAKER) (test code = 604) 4.7 mg/dL 2.3-4.7 [employer] ID - JESÚS [id number] 05:30:00* Test Item Value Reference Range Interpretation Comments MAGNESIUM (BEAKER) (test code = 627) 1.8 mg/dL 1.6-2.6 [employer] ID - JESÚS LCBC W/PLT COUNT & AUTO [id number] 04:49:00* Test Item Value Reference Range Interpretation Comments WHITE BLOOD CELL COUNT (BEAKER) (test code = 775) 6.9 K/ L 3.5- 10.5 RED BLOOD CELL COUNT (BEAKER) (test code = 761) 3.03 M/ L 4.63-6 .08 L HEMOGLOBIN (BEAKER) (test code = 410) 9.1 GM/DL 13.7-17.5 L HEMATOCRIT (BEAKER) (test code = 411) 29.0 % 40.1-51.0 L MEAN CORPUSCULAR VOLUME (BEAKER) (test code = 753) 95.7 fL 79. 0-92.2 H MEAN CORPUSCULAR HEMOGLOBIN (BEAKER) (test code = 751) 30.0 pg 25.7-32.2 MEAN CORPUSCULAR HEMOGLOBIN CONC (BEAKER) (test code = 752) 31.4 GM/DL 32.3-36.5 L RED CELL DISTRIBUTION WIDTH (BEAKER) (test code = 412) 13.5 % 11.6-14.4 PLATELET COUNT (BEAKER) (test code = 756) 318 K/CU MM 150-450 MEAN PLATELET VOLUME (BEAKER) (test code = 754) 9.9 fL 9.4-12 .4 NUCLEATED RED BLOOD CELLS (BEAKER) (test code = 413) 0 /100 WBC 0 -0 NEUTROPHILS RELATIVE PERCENT (BEAKER) (test code = 429) 76 % LYMPHOCYTES RELATIVE PERCENT (BEAKER) (test code = 430) 13 % MONOCYTES RELATIVE PERCENT (BEAKER) (test code = 431) 8 % EOSINOPHILS RELATIVE PERCENT (BEAKER) (test code = 432) 2 % BASOPHILS RELATIVE PERCENT (BEAKER) (test code = 437) 1 % NEUTROPHILS ABSOLUTE COUNT (BEAKER) (test code = 670) 5.20 K/ L 1.78-5.38 LYMPHOCYTES ABSOLUTE COUNT (BEAKER) (test code = 414) 0.87 K/ L 1.32-3.57 L MONOCYTES ABSOLUTE COUNT (BEAKER) (test code = 415) 0.52 K/ L 0. 30-0.82 EOSINOPHILS ABSOLUTE COUNT (BEAKER) (test code = 416) 0.15 K/ L 0.04-0.54 BASOPHILS ABSOLUTE COUNT (BEAKER) (test code = 417) 0.09 K/ L 0. 01-0.08 H IMMATURE GRANULOCYTES-RELATIVE PERCENT (BEAKER) (test code = 2801) 1 % 0-1 BASIC METABOLIC [id number] 06:23:00* Test Item Value Reference Range Interpretation Comments SODIUM (BEAKER) (test code = 381) 138 meq/L 136-145 POTASSIUM (BEAKER) (test code = 379) 4.3 meq/L 3.5-5.1 CHLORIDE (BEAKER) (test code = 382) 103 meq/L 98-107 CO2 (BEAKER) (test code = 355) 23 meq/L 22-29 BLOOD UREA NITROGEN (BEAKER) (test code = 354) 14 mg/dL 7-21 CREATININE (BEAKER) (test code = 358) 4.11 mg/dL 0.57-1.25 H GLUCOSE RANDOM (BEAKER) (test code = 652) 93 mg/dL 70-105 CALCIUM (BEAKER) (test code = 697) 7.3 mg/dL 8.4-10.2 L EGFR (BEAKER) (test code = 1092) 14 mL/min/1.73 sq m ESTIMATED GFR IS NOT ACCURATE CREATININE CLEARANCE IN PREDICTING GLOMERULAR FILTRATION RATE. ESTIMATED GFR IS NOT APPLICABLE FOR DIALYSIS PATIENTS. [employer] ID - JESÚS [id number] 05:50:00* Test Item Value Reference Range Interpretation Comments PHOSPHORUS (BEAKER) (test code = 604) 4.6 mg/dL 2.3-4.7 [employer] ID - JESÚS [id number] 05:50:00* Test Item Value Reference Range Interpretation Comments MAGNESIUM (BEAKER) (test code = 627) 1.5 mg/dL 1.6-2.6 L [employer] ID - JESÚS LCBC W/PLT COUNT & AUTO [id number] 05:04:00* Test Item Value Reference Range Interpretation Comments WHITE BLOOD CELL COUNT (BEAKER) (test code = 775) 8.2 K/ L 3.5- 10.5 RED BLOOD CELL COUNT (BEAKER) (test code = 761) 3.10 M/ L 4.63-6 .08 L HEMOGLOBIN (BEAKER) (test code = 410) 9.4 GM/DL 13.7-17.5 L HEMATOCRIT (BEAKER) (test code = 411) 30.0 % 40.1-51.0 L MEAN CORPUSCULAR VOLUME (BEAKER) (test code = 753) 96.8 fL 79. 0-92.2 H MEAN CORPUSCULAR HEMOGLOBIN (BEAKER) (test code = 751) 30.3 pg 25.7-32.2 MEAN CORPUSCULAR HEMOGLOBIN CONC (BEAKER) (test code = 752) 31.3 GM/DL 32.3-36.5 L RED CELL DISTRIBUTION WIDTH (BEAKER) (test code = 412) 13.3 % 11.6-14.4 PLATELET COUNT (BEAKER) (test code = 756) 305 K/CU MM 150-450 MEAN PLATELET VOLUME (BEAKER) (test code = 754) 10.3 fL 9.4-12 .4 NUCLEATED RED BLOOD CELLS (BEAKER) (test code = 413) 0 /100 WBC 0 -0 NEUTROPHILS RELATIVE PERCENT (BEAKER) (test code = 429) 92 % LYMPHOCYTES RELATIVE PERCENT (BEAKER) (test code = 430) 5 % MONOCYTES RELATIVE PERCENT (BEAKER) (test code = 431) 2 % EOSINOPHILS RELATIVE PERCENT (BEAKER) (test code = 432) 0 % BASOPHILS RELATIVE PERCENT (BEAKER) (test code = 437) 0 % NEUTROPHILS ABSOLUTE COUNT (BEAKER) (test code = 670) 7.50 K/ L 1.78-5.38 H LYMPHOCYTES ABSOLUTE COUNT (BEAKER) (test code = 414) 0.44 K/ L 1.32-3.57 L MONOCYTES ABSOLUTE COUNT (BEAKER) (test code = 415) 0.13 K/ L 0. 30-0.82 L EOSINOPHILS ABSOLUTE COUNT (BEAKER) (test code = 416) 0.00 K/ L 0.04-0.54 L BASOPHILS ABSOLUTE COUNT (BEAKER) (test code = 417) 0.03 K/ L 0. 01-0.08 IMMATURE GRANULOCYTES-RELATIVE PERCENT (BEAKER) (test code = 2801) 1 % 0-1 HEMODIALYSIS [id number] 23:07:05Lani Patel RN 10/27/2019 11:07 PMPatient is awake, alert and oriented X 4. Here to be dialyzed for 4 hours with UF goal of 3.5L. The following most updated labs are as follows: Lab [...] Patient dialyzed for 4 hours with Net UF = 3.2L L using the Left arm AV fistula access. Vital signs stable and well within the set parameters. Report given to primary RN. Patient was able to tolerate the treatment well. Lani Patel RN [facility] [id number] 13:51:00* Test Item Value Reference Range Interpretation Comments POC-GLUCOSE METER (BEAKER) (test code = 1538) 74 mg/dL 70-110 : TESTED AT [facility] [address] [facility], [address]: [employer]/Shovel Log Loader Operator ID = [id number] for Ann Bernard Type and screen, [id number] 10:05:00* Test Item Value Reference Range Interpretation Comments ABO/RH AUTOMATED (BEAKER) (test code = 2260) B POSITIVE Ab Scrn (test code = 890-4) NEGATIVE [facility] METABOLIC [id number] 09:12:00* Test Item Value Reference Range Interpretation Comments SODIUM (BEAKER) (test code = 381) 134 meq/L 136-145 L POTASSIUM (BEAKER) (test code = 379) 3.9 meq/L 3.5-5.1 CHLORIDE (BEAKER) (test code = 382) 98 meq/L 98-107 CO2 (BEAKER) (test code = 355) 29 meq/L 22-29 BLOOD UREA NITROGEN (BEAKER) (test code = 354) 19 mg/dL 7-21 CREATININE (BEAKER) (test code = 358) 6.40 mg/dL 0.57-1.25 H GLUCOSE RANDOM (BEAKER) (test code = 652) 77 mg/dL 70-105 CALCIUM (BEAKER) (test code = 697) 7.9 mg/dL 8.4-10.2 L EGFR (BEAKER) (test code = 1092) 9 mL/min/1.73 sq m ESTIMATED GFR IS NOT ACCURATE CREATININE CLEARANCE IN PREDICTING GLOMERULAR FILTRATION RATE. ESTIMATED GFR IS NOT APPLICABLE FOR DIALYSIS PATIENTS. [employer] ID - MICHELL [id number] 09:02:00* Test Item Value Reference Range Interpretation Comments MAGNESIUM (BEAKER) (test code = 627) 1.7 mg/dL 1.6-2.6 [employer] ID - MICHELL MECG 12 [id number] 09:01:04Interface, External Ris In - 10/27/2019 9:01 AM CDTVentricular Rate 75 BPMAtrial Rate 75 BPMP-R Interval 134 msQRS Duration 78 msQ-T Interval 386 msQTC Calculation(Bazett) 431 msP [place] 37 degreesR [place] -6 degreesT [place] 36 degreesNormal sinus rhythmSeptal infarct (cited on or before 15-NOV-2012)Abnormal ECGWhen compared with ECG of 26-OCT-2019 11:43,No significant change was foundConfirmed by Anila GRUBER BASANT ([id number]) on 10/27/2019 9:01:01 [facility] W/PLT COUNT & AUTO [id number] 08:36:00* Test Item Value Reference Range Interpretation Comments WHITE BLOOD CELL COUNT (BEAKER) (test code = 775) 8.1 K/ L 3.5- 10.5 RED BLOOD CELL COUNT (BEAKER) (test code = 761) 2.82 M/ L 4.63-6 .08 L HEMOGLOBIN (BEAKER) (test code = 410) 8.7 GM/DL 13.7-17.5 L HEMATOCRIT (BEAKER) (test code = 411) 27.3 % 40.1-51.0 L MEAN CORPUSCULAR VOLUME (BEAKER) (test code = 753) 96.8 fL 79. 0-92.2 H MEAN CORPUSCULAR HEMOGLOBIN (BEAKER) (test code = 751) 30.9 pg 25.7-32.2 MEAN CORPUSCULAR HEMOGLOBIN CONC (BEAKER) (test code = 752) 31.9 GM/DL 32.3-36.5 L RED CELL DISTRIBUTION WIDTH (BEAKER) (test code = 412) 13.2 % 11.6-14.4 PLATELET COUNT (BEAKER) (test code = 756) 280 K/CU MM 150-450 MEAN PLATELET VOLUME (BEAKER) (test code = 754) 9.8 fL 9.4-12 .4 NUCLEATED RED BLOOD CELLS (BEAKER) (test code = 413) 0 /100 WBC 0 -0 NEUTROPHILS RELATIVE PERCENT (BEAKER) (test code = 429) 67 % LYMPHOCYTES RELATIVE PERCENT (BEAKER) (test code = 430) 15 % MONOCYTES RELATIVE PERCENT (BEAKER) (test code = 431) 9 % EOSINOPHILS RELATIVE PERCENT (BEAKER) (test code = 432) 6 % BASOPHILS RELATIVE PERCENT (BEAKER) (test code = 437) 2 % NEUTROPHILS ABSOLUTE COUNT (BEAKER) (test code = 670) 5.42 K/ L 1.78-5.38 H LYMPHOCYTES ABSOLUTE COUNT (BEAKER) (test code = 414) 1.24 K/ L 1.32-3.57 L MONOCYTES ABSOLUTE COUNT (BEAKER) (test code = 415) 0.73 K/ L 0. 30-0.82 EOSINOPHILS ABSOLUTE COUNT (BEAKER) (test code = 416) 0.50 K/ L 0.04-0.54 BASOPHILS ABSOLUTE COUNT (BEAKER) (test code = 417) 0.12 K/ L 0. 01-0.08 H IMMATURE GRANULOCYTES-RELATIVE PERCENT (BEAKER) (test code = 2801) 1 % 0-1 Hepatitis B surface [id number] 22:33:00* Test Item Value Reference Range Interpretation Comments HBsAg Screen (test code = 5195-3) Nonreactive Nonreactive CHAPIS (test code = CHAPIS) Specimen is considered negative for HBsAg. Lab Interpretation (test code = 13224-8) Normal [facility] SUR[facility] [id number] 22:33:00* Test Item Value Reference Range Interpretation Comments HEPATITIS B SURFACE ANTIGEN (2) (BEAKER) (test code = 2585) Nonreactive Nonreactive Specimen is considered negative for HBsAg.SARS-CoV2/RT-PCR (Asymptomatic ONLY) 2019-10-26 19:18:00* Test Item Value Reference Range Interpretation Comments SARS-COV2/RT-PCR (test code = 1874932) Not Detected Not Detected, N egative SARS-COV-2 PERFORMING LAB (test code = 3186420) [facility] CHAPIS (test code = CHAPIS) Negative results do not prec lude SARS-CoV-2 infection and should not be used as the sole basis for patient management decisions. Negative results must be combined with clinical observations, patient history, and epidemiological information. A false negative result may occur if a specimen is improperly collected, transported or handled. The limit of detection for this assay is 250 copies/mL. This SARS CoV-2 test is a rapid, real-time RT-PCR test intended for the qualitative detection of nucleic acid from SARS-CoV-2 in a nasopharyngeal swab specimen collected from individuals suspected of COVID-19 by their healthcare provider. This test has not been Food and Drug Administration (FDA) cleared or approved and has been authorized by FDA under an Emergency Use Authorization (EUA). This EUA will be effective until the declaration that circumstances exist justifying the authorization of the emergency use of in vitro diagnostic tests for detection and/or diagnosis of COVID-19 is terminated under Section 564(b)(2) of the Act or the EUA is revoked under Section 564(g) of the Act. Fact Sheet for Healthcare Providers:https://www.[employer]/Documents/Xpert%20Xpress%20SARS%20CoV-2/Fact%2 0Sheets/302-3802%47MFYO-GUF-8%20HEALTHCARE%20PROVIDERS%20FACT%20SHEET.pdf Fact Sheet for Healthcare Patients:https://www.[employer]/Documents/Xpert%20Xpress%20SARS%20CoV-2/Fact%20 Sheets/302-3801%75CPRT-PLX-0%20PATIENT%20FACT%20SHEET.pdf Performing Laboratory:[facility]ARS-COV2/RT-PCR ([facility])2019-10-26 19:18:00* Test Item Value Reference Range Interpretation Comments SARS-COV2/RT-PCR (test code = 8984674) Not Detected Not Detected, N egative SARS-COV-2 PERFORMING LAB (test code = 3703310) [facility] Negative results do not preclude SARS-CoV-2 infection and should not be used as the sole basis for patient management decisions. Negative results must be combin ed with clinical observations, patient history, and epidemiological information. A false negative result may occur if a specimen is improperly collected, transp orted or handled.The limit of detection for this assay is 250 copies/mL.This [facility] CoV-2 test is a rapid, real-time RT-PCR test intended for the qualitative dete ction of nucleic acid from SARS-CoV-2 in a nasopharyngeal swab specimen collecte d from individuals suspected of COVID-19 by their healthcare provider.This test has not been Food and Drug Administration (FDA) cleared or approved and has been authorized by FDA under an Emergency Use Authorization (EUA). This EUA will be effective until the declaration that circumstances exist justifying the authoriz ation of the emergency use of in vitro diagnostic tests for detection and/or lynnette gnosis of COVID-19 is terminated under Section 564(b)(2) of the Act or the EUA i s revoked under Section 564(g) of the Act.Fact Sheet for Healthcare Providers:ht tps://www.[employer]/Documents/Xpert%20Xpress%20SARS%20CoV-2/Fact%20Sheets/302- 3802%10CRZA-JCI-4%20HEALTHCARE%20PROVIDERS%20FACT%20SHEET.pdfFact Sheet for Heal thcare Patients:https://www.[employer]/Documents/Xpert%20Xpress%20SARS%20CoV-2/ Fact%20Sheets/302-3801%35LACF-CTF-2%20PATIENT%20FACT%20SHEET.pdfPerforming Labor atory:[facility], [place] [address]TE, [id number] 15:59:00Reason for exam:->POST-OP PROBLEMWhat is the patient's sedation requirement?->No SedationFINAL REPORT CT abdomen and pelvis without contrast [...] size, and/or use of iterative reconstruction technique. Findings:Evaluation limited by lack of intravenous contrast. Small [...] free fluid within the abdomen. No fluid col lection is seen. No aggressive osseous lesion. Impression: 1. Evidence of recent surgery, without postoperative fluid collection.2. No small or large bowel obst ruction is seen.3. 3 mm calculus near the left ureterovesicular junction, withou t hydronephrosis.4. Mildly enlarged prostate gland.5. Partial visualization of m ild lymphadenopathy within the posterior mediastinum.6. Small bilateral pleural effusions. Signed: Rosales Rosenbaum MDReport Verified Date/Time: 10/26/2019 15:5 9:26 Reading Location: [address] Ortho Consult Reading Room Electronical ly signed by: ROSALES ROSENBAUM MD on 10/26/2019 03:[address] abdomen pelvis without [id number] 15:59:00Interface, External Ris In - 10/26/2019 4:[address] abdomen and pelvis without contrast [...] size, and/or use of iterative reconstruction technique. Findings:Evaluation limited by lack of intravenous contrast. Small [...] noted near the left ureterovesicular junction, without hy dronephrosis. Prostate gland appears mildly enlarged. No small or large bowel obstruction. No apparent bowel wall thickening. Evidence of prior surgery withi n the left lower quadrant small bowel. No findings to indicate acute appendiciti s. Postsurgical changes are visualized within the midline. There is a small am ount of free fluid within the abdomen. No fluid collection is seen. No aggressi ve osseous lesion. Impression: 1. Evidence of recent surgery, without postoperat bella fluid collection.2. No small or large bowel obstruction is seen.3. 3 mm calc ulus near the left ureterovesicular junction, without hydronephrosis.4. Mildly e nlarged prostate gland.5. Partial visualization of mild lymphadenopathy within t he posterior mediastinum.6. Small bilateral pleural effusions. Signed: Rosales Rosenbaum MDReport Verified Date/Time: 10/26/2019 15:59:26 Reading Location: [place] [address] [address] Ortho Consult Reading Room [facility] HospitalUrinal[facility] w/Microscopic + Reflex to [id number] 14:05:00* Test Item Value Reference Range Interpretation Comments Color, UA (test code = 5778-6) Yellow Clarity, UA (test code = 5767-9) Hazy Specific [place], UA (test code = 5811-5) 1.012 1.001-1.035 pH, UA (test code = 5803-2) 8.5 5.0-8.0 H Protein, UA (test code = 53009-0) 200 mg/dL Negative A Glucose, UA (test code = 365) 50 mg/dL Negative A Ketones, UA (test code = 2514-8) Negative Negative Bilirubin, UA (test code = 89400-3) Negative Negative Blood, UA (test code = 02262-3) Large Negative A Nitrite, UA (test code = 5802-4) Negative Negative Leukocytes, UA (test code = 5799-2) Small Negative A Urobilinogen, UA (test code = 62629-1) 0.2 mg/dL 0.2-1 RBC, UA (test code = 21869-4) 26 /HPF WBC, UA (test code = 5821-4) 8 /HPF Bacteria, UA (test code = 44471-5) Rare Squam Epithel, UA (test code = 04539-8) 13 /HPF Specimen Source (test code = 2795) CHAPIS (test code = CHAPIS) [employer] ID - [auto][employer] ID - mike Lab Interpretation (test code = 29801-8) Abnormal [facility]/ REFLEX URINE [id number] 14:05:00* Test Item Value Reference Range Interpretation Comments COLOR (BEAKER) (test code = 470) Yellow CLARITY (BEAKER) (test code = 469) Hazy SPECIFIC GRAVITY UA (BEAKER) (test code = 468) 1.012 1.001-1 .035 PH UA (BEAKER) (test code = 467) 8.5 5.0-8.0 H PROTEIN UA (BEAKER) (test code = 464) 200 mg/dL Negative A GLUCOSE UA (BEAKER) (test code = 365) 50 mg/dL Negative A KETONES UA (BEAKER) (test code = 371) Negative Negative BILIRUBIN UA (BEAKER) (test code = 462) Negative Negative BLOOD UA (BEAKER) (test code = 461) Large Negative A NITRITE UA (BEAKER) (test code = 465) Negative Negative LEUKOCYTE ESTERASE UA (BEAKER) (test code = 466) Small Negat bella A UROBILINOGEN UA (BEAKER) (test code = 463) 0.2 mg/dL 0.2-1.0 RBC UA (BEAKER) (test code = 519) 26 /HPF WBC UA (BEAKER) (test code = 520) 8 /HPF BACTERIA (BEAKER) (test code = 517) Rare SQUAMOUS EPITHELIAL (BEAKER) (test code = 516) 13 /HPF SOURCE(BEAKER) (test code = 2795) [employer] ID - [auto][employer] ID - hankRAD, CHEST, 1 VIEW, NON [id number] 13:15:00Reason for exam:->POST-OP PROBLEMShould this be performed at the bedside?->YesFINAL REPORT CLINICAL HISTORY: POST-OP PROBLEM TECHNIQUE: 1 view of the chest. COMPARISON: 12/08/2012 IMPRESSION: There are prominent interstitial lung markings without focal lobar consolidation. There is blunting of the right costophrenic angle. The cardiomediastinal silhouette is magnified by technique. There are chronic right rib fractures. Signed: Flash Escobar MDReport Verified Date/Time: 10/26/2019 13:15:40 Reading Location: [facility] Radiology Reading Room chest 1 view portable / bedside 2019-10-26 13:15:00Interface, External Ris In - 10/26/2019 1:17 PM CDTFINAL REPORT CLINICAL HISTORY: POST-OP PROBLEM TECHNIQUE: 1 view of the chest. COMPARISON: 12/08/2012 IMPRESSION: There are prominent interstitial lung markings without focal lobar consolidation. There is blunting of the right costophrenic angle. The cardiomediastinal silhouette is magnified by technique. There are chronic right rib fractures. Signed: Flash Escobar MDReport Verified Date/Time: 10/26/2019 13:15:40 Reading Location: [facility] Radiology Reading Room [facility] METABOLIC PANEL 2019-10-26 13:10:00* Test Item Value Reference Range Interpretation Comments SODIUM (BEAKER) (test code = 381) 135 meq/L 136-145 L POTASSIUM (BEAKER) (test code = 379) 3.8 meq/L 3.5-5.1 CHLORIDE (BEAKER) (test code = 382) 98 meq/L 98-107 CO2 (BEAKER) (test code = 355) 31 meq/L 22-29 H BLOOD UREA NITROGEN (BEAKER) (test code = 354) 14 mg/dL 7-21 CREATININE (BEAKER) (test code = 358) 4.97 mg/dL 0.57-1.25 H GLUCOSE RANDOM (BEAKER) (test code = 652) 90 mg/dL 70-105 CALCIUM (BEAKER) (test code = 697) 7.8 mg/dL 8.4-10.2 L EGFR (BEAKER) (test code = 1092) 11 mL/min/1.73 sq m ESTIMATED GFR IS NOT ACCURATE CREATININE CLEARANCE IN PREDICTING GLOMERULAR FILTRATION RATE. ESTIMATED GFR IS NOT APPLICABLE FOR DIALYSIS PATIENTS. [employer] ID - NTPTroponin [id number] 12:52:00* Test Item Value Reference Range Interpretation Comments Troponin I (test code = 98243-1) 0.01 ng/mL 0-0.03 CHAPIS (test code = CHAPIS) Troponin I (TnI) levels must be interpreted in the context of the presenting symptoms and the clinical findings. Elevated TnI levels indicate myocardial damage, but are not specific for ischemic heart disease. Elevated TnI levels are seen in patients with other cardiac conditions (including myocarditis and congestive heart failure), and slight TnI elevations occur in patients with other conditions, including sepsis, renal failure, acidosis, acute neurological disease, and persistent tachyarrhythmia.[employer] ID - [id number] Lab Interpretation (test code = 61989-0) [facility] [id number] 12:52:00* Test Item Value Reference Range Interpretation Comments TROPONIN I (FRANTZ) (test code = 397) 0.01 ng/mL 0.00-0.03 Troponin I (TnI) levels must be interpreted in the context of the presenting sym ptoms and the clinical findings. Elevated TnI levels indicate myocardial damage, but are not specific for ischemic heart disease. Elevated TnI levels are seen i n patients with other cardiac conditions (including myocarditis and congestive h eart failure), and slight TnI elevations occur in patients with other conditions , including sepsis, renal failure, acidosis, acute neurological disease, and per sistent tachyarrhythmia.[employer] ID - NTPLactic acid, [id number] 12:48:00 * Test Item Value Reference Range Interpretation Comments Lactate, Venous (test code = 2872) 0.87 mmol/L 0.5-2.2 CHAPIS (test code = CHAPIS) [employer] ID - NTP Lab Interpretation (test code = 72550-0) Normal [facility] HospitalLACTIC [facility]ID, XCBWXC1573-07-16 12:48:00* Test Item Value Reference Range Interpretation Comments LACTATE BLOOD VENOUS (2) (FRANTZ) (test code = 2872) 0.87 mmol/L 0 .50-2.20 [employer] ID - NTPB-type Natriuretic Factor (BNP)2019-10-26 12:47:00* Test Item Value Reference Range Interpretation Comments BNP (test code = 27334-7) 864 pg/mL 0-100 H CHAPIS (test code = CHAPIS) [employer] ID - NTP Lab Interpretation (test code = 61026-3) Abnormal [facility] Hospital[facility] NATRIURETIC FACTOR (BNP)2019-10-26 12:47:00 * Test Item Value Reference Range Interpretation Comments B-TYPE NATRIURETIC PEPTIDE (FRANTZ) (test code = 700) 864 pg/mL 0-100 H [employer] ID - NTPHepatic function jlxwp2184-64-61 12:44:00* Test Item Value Reference Range Interpretation Comments Protein, Total (test code = 2885-2) 5.6 6.0- 8.3 gm/dL L Albumin (test code = 78126-7) 2.3 g/dL 3.5-5 L Total Bilirubin (test code = 1975-2) 0.4 mg/dL 0.2-1.2 Bilirubin, Direct (test code = 1968-7) 0.3 mg/dL 0.1-0.5 Alkaline Phosphatase (test code = 6768-6) 130 U/L 40-150 AST (test code = 1920-8) 18 U/L 5-34 ALT (test code = 1742-6) 6 U/L 6-55 CHAPIS (test code = CHAPIS) [employer] ID - NTP Lab Interpretation (test code = 01095-5) Abnormal [facility]Lipase2020-[facility]-28 12:44:00* Test Item Value Reference Range Interpretation Comments Lipase (test code = 3040-3) 107 U/L 8-78 H CHAPIS (test code = CHAPIS) [employer] ID - NTP Lab Interpretation (test code = 21463-2) Abnormal [facility] HospitalLIPASE2020-05-28 12:44:00* Test Item Value Reference Range Interpretation Comments LIPASE (BEAKER) (test code = 749) 107 U/L 8-78 H [employer] ID - NTPHEPATIC FUNCTION [id number] 12:44:00* Test Item Value Reference Range Interpretation Comments TOTAL PROTEIN (BEAKER) (test code = 770) 5.6 gm/dL 6.0-8.3 L ALBUMIN (BEAKER) (test code = 1145) 2.3 g/dL 3.5-5.0 L BILIRUBIN TOTAL (BEAKER) (test code = 377) 0.4 mg/dL 0.2-1.2 BILIRUBIN DIRECT (BEAKER) (test code = 706) 0.3 mg/dL 0.1-0.5 ALKALINE PHOSPHATASE (BEAKER) (test code = 346) 130 U/L 40-150 AST (SGOT) (BEAKER) (test code = 353) 18 U/L 5-34 ALT (SGPT) (BEAKER) (test code = 347) 6 U/L 6-55 [employer] ID - NTPPT/[id number] 12:39:00* Test Item Value Reference Range Interpretation Comments Protime (test code = 5902-2) 16.6 11.9- 14.2 seconds H INR (test code = 6301-6) 1.4 <=5.9 PTT (test code = 53031-0) 36.0 22.5- 36.0 seconds CHAPIS (test code = CHAPIS) Effective 10/26/2018: PT Refe rence Range ChangeNew: 11.9- 14.2 Previous: 11.7-14.7 RECOMMENDED COUMADIN/WARFARIN INR THERAPY RANGESSTANDARD DOSE: 2.0-3.0 Includes: PROPHYLAXIS for venous thrombosis, sys temic embolization; TREATMENT for venous thrombosis and/or pulmonary embolus.HIGH RISK: Target INR is 2.5-3.5 for patients wiht mechanical heart valves. Lab Interpretation (test code = 01258-2) [facility]normal [facility]YCKN7310-[facility]-52 12:39:00* Test Item Value Reference Range Interpretation Comments PROTIME (BEAKER) (test code = 759) 16.6 seconds 11.9-14.2 H INR (BEAKER) (test code = 370) 1.4 <=5.9 PARTIAL THROMBOPLASTIN TIME (BEAKER) (test code = 760) 36.0 seconds 22.5-36.0 Effective 10/26/2018: PT Reference Range ChangeNew: 11.9-14.2 Previous: 11.7-14. 7RECOMMENDED COUMADIN/WARFARIN INR THERAPY RANGESSTANDARD DOSE: 2.0-3.0 Include s: PROPHYLAXIS for venous thrombosis, systemic embolization; TREATMENT for venou s thrombosis and/or pulmonary embolus.HIGH RISK: Target INR is 2.5-3.5 for patie nts wiht mechanical heart valves.CBC W/PLT COUNT & AUTO HCUUICRKXGJD1942-58-30 12:23:00* Test Item Value Reference Range Interpretation Comments WHITE BLOOD CELL COUNT (BEAKER) (test code = 775) 8.4 K/ L 3.5- 10.5 RED BLOOD CELL COUNT (BEAKER) (test code = 761) 2.93 M/ L 4.63-6 .08 L HEMOGLOBIN (BEAKER) (test code = 410) 9.0 GM/DL 13.7-17.5 L HEMATOCRIT (BEAKER) (test code = 411) 28.5 % 40.1-51.0 L MEAN CORPUSCULAR VOLUME (BEAKER) (test code = 753) 97.3 fL 79. 0-92.2 H MEAN CORPUSCULAR HEMOGLOBIN (BEAKER) (test code = 751) 30.7 pg 25.7-32.2 MEAN CORPUSCULAR HEMOGLOBIN CONC (BEAKER) (test code = 752) 31.6 GM/DL 32.3-36.5 L RED CELL DISTRIBUTION WIDTH (BEAKER) (test code = 412) 13.4 % 11.6-14.4 PLATELET COUNT (BEAKER) (test code = 756) 287 K/CU MM 150-450 MEAN PLATELET VOLUME (BEAKER) (test code = 754) 10.0 fL 9.4-12 .4 NUCLEATED RED BLOOD CELLS (BEAKER) (test code = 413) 0 /100 WBC 0 -0 NEUTROPHILS RELATIVE PERCENT (BEAKER) (test code = 429) 71 % LYMPHOCYTES RELATIVE PERCENT (BEAKER) (test code = 430) 14 % MONOCYTES RELATIVE PERCENT (BEAKER) (test code = 431) 9 % EOSINOPHILS RELATIVE PERCENT (BEAKER) (test code = 432) 5 % BASOPHILS RELATIVE PERCENT (BEAKER) (test code = 437) 1 % NEUTROPHILS ABSOLUTE COUNT (BEAKER) (test code = 670) 5.92 K/ L 1.78-5.38 H LYMPHOCYTES ABSOLUTE COUNT (BEAKER) (test code = 414) 1.16 K/ L 1.32-3.57 L MONOCYTES ABSOLUTE COUNT (BEAKER) (test code = 415) 0.73 K/ L 0. 30-0.82 EOSINOPHILS ABSOLUTE COUNT (BEAKER) (test code = 416) 0.42 K/ L 0.04-0.54 BASOPHILS ABSOLUTE COUNT (BEAKER) (test code = 417) 0.10 K/ L 0. 01-0.08 H IMMATURE GRANULOCYTES-RELATIVE PERCENT (BEAKER) (test code = 2801) 1 % 0-1 Blood leukocytes automated count (number/volume)2019-10-19 05:40:00* Test Item Value Reference Range Interpretation Comments White Blood Count (test code = 6690-2) 9.07 4.8-10.8 [facility] erythrocytes automated count (number/volume)2019-10-19 05:40:00* Test Item Value Reference Range Interpretation Comments Red Blood Count (test code = 789-8) 3.43 4.3-5.7 [facility] HospitalBlood hemoglobin measurement (moles/volume)2019-10-19 05:40:00* Test Item Value Reference Range Interpretation Comments Hemoglobin (test code = 89958-4) 10.1 14.0-18.0 [facility] HospitalAutomated blood hematocrit (volume fraction)2019-10-19 05:40:00* Test Item Value Reference Range Interpretation Comments Hematocrit (test code = 4544-3) 32.5 38.2-49.6 [facility] HospitalAutomated erythrocyte mean corpuscular kxbuij0276-89-49 05:40:00* Test Item Value Reference Range Interpretation Comments Mean Corpuscular Volume (test code = 787-2) 94.8 81-99 [facility] HospitalAutomated erythrocyte mean corpuscular hemoglobin (mass per erythrocyte)2019-10-19 05:40:00* Test Item Value Reference Range Interpretation Comments Mean Corpuscular Hemoglobin (test code = 785-6) 29.4 28-32 [facility] HospitalAutomated erythrocyte mean corpuscular hemoglobin concentration measurement (mass/volume)2019-10-19 05:40:00* Test Item Value Reference Range Interpretation Comments Mean Corpuscular Hemoglobin Concent (test code = 786-4) 31.1 31-35 [facility] HospitalRDW ZmxIc-Jjx5004-52-21 05:40:00* Test Item Value Reference Range Interpretation Comments Red Cell Distribution Width (test code = 80445-5) 13.9 11.7 -14.4 [facility] HospitalAutomated blood platelet count (count/volume)2019-10-19 05:40:00* Test Item Value Reference Range Interpretation Comments Platelet Count (test code = 777-3) 192 140-360 [facility] HospitalAutblowing rock hospitaled blood segmented neutrophil count as percentage of total wxqtgyjdbw4165-16-62 05:40:00* Test Item Value Reference Range Interpretation Comments Neutrophils (%) (Auto) (test code = 07031-7) 75.1 38.7-80.0 [facility] HospitalAutomated blood lymphocyte count as percentage ot total xkrowhtoly5610-09-02 05:40:00* Test Item Value Reference Range Interpretation Comments Lymphocytes (%) (Auto) (test code = 736-9) 12.3 18.0-39.1 [facility] HospitalAutomated blood monocyte count as percentage of total hnbsgnfctl5367-49-58 05:40:00* Test Item Value Reference Range Interpretation Comments Monocytes (%) (Auto) (test code = 5905-5) 6.9 4.4-11.3 [facility] HospitalAutomated blood eosinophil count as percentage of total pizociffds2878-31-90 05:40:00* Test Item Value Reference Range Interpretation Comments Eosinophils (%) (Auto) (test code = 713-8) 4.1 0.0-6.0 [facility] basophil count as percentage of total rbcwkxiyyh7759-66-76 05:40:00* Test Item Value Reference Range Interpretation Comments Basophils (%) (Auto) (test code = 706-2) 0.8 0.0-1.0 [facility] HospitalFluoroscopic procedure less than one hour wtxliior7101-39-45 05:40:00* Test Item Value Reference Range Interpretation Comments IM GRANULOCYTES % (test code = IM GRANULOCYTES %) 0.8 0.0- 1.0 [facility] HospitalAutomated blood neutrophil count 2019-10-19 05:40:00* Test Item Value Reference Range Interpretation Comments Neutrophils # (Auto) (test code = 751-8) 6.8 2.1-6.9 [facility] HospitalBlood lymphocytes count (number/volume) 2019-10-19 05:40:00* Test Item Value Reference Range Interpretation Comments Lymphocytes # (Auto) (test code = 12550-9) 1.1 1.0-3.2 [facility] HospitalBlood monocytes automated count (number/volume)2019-10-19 05:40:00* Test Item Value Reference Range Interpretation Comments Monocytes # (Auto) (test code = 742-7) 0.6 0.2-0.8 [facility] HospitalAutomated blood eosinophil count 2019-10-19 05:40:00* Test Item Value Reference Range Interpretation Comments Eosinophils # (Auto) (test code = 711-2) 0.4 0.0-0.4 [facility] HospitalAutomated blood basophil count (count/volume)2019-10-19 05:40:00* Test Item Value Reference Range Interpretation Comments Basophils # (Auto) (test code = 704-7) 0.1 0.0-0.1 [facility] HospitalFluoroscopic procedure less than one hour ofwxznvt2647-07-75 05:40:00* Test Item Value Reference Range Interpretation Comments Absolute Immature Granulocyte (auto (guilherme t code = Absolute Immature Granulocyte (auto) 0.07 0-0.1 [facility] sodium measurement (moles/volume)2019-10-19 05:40:00* Test Item Value Reference Range Interpretation Comments Sodium Level (test code = 2951-2) 139 136-145 [facility] plasma potassium measurement (moles/volume)2019-10-19 05:40:00* Test Item Value Reference Range Interpretation Comments Potassium Level (test code = 2823-3) 3.7 3.5-5.1 [facility] plasma chloride measurement (moles/volume)2019-10-19 05:40:00* Test Item Value Reference Range Interpretation Comments Chloride Level (test code = 2075-0) 103 98-107 [facility] or plasma carbon dioxide, total measurement (moles/volume)2019-10-19 05:40:00* Test Item Value Reference Range Interpretation Comments Carbon Dioxide Level (test code = 2028-9) 25 22-29 [facility] or plasma anion psl6250-05-17 05:40:00* Test Item Value Reference Range Interpretation Comments Anion Gap (test code = 41564-2) 14.7 8-16 [facility] or plasma urea nitrogen measurement (mass/volume)2019-10-19 05:40:00* Test Item Value Reference Range Interpretation Comments Blood Urea Nitrogen (test code = 3094-0) 17 7-26 [facility] or plasma creatinine measurement (mass/volume)2019-10-19 05:40:00* Test Item Value Reference Range Interpretation Comments Creatinine (test code = 2160-0) 5.01 0.72-1.25 [facility] plasma urea nitrogen/creatinine mass jmexy8338-92-42 05:40:00* Test Item Value Reference Range Interpretation Comments BUN/Creatinine Ratio (test code = 3097-3) 3 6-25 [facility] HospitalEstimated glomerular filtration rate (GFR) bydeiorperyet2230-46-20 05:40:00* Test Item Value Reference Range Interpretation Comments Estimat Glomerular Filtration Rate (test code = 449148590) 11 >60 Ranges were taken from the National Kidney Disease Education Program and the [facility] literature.Reference ranges:60 or greater: Gyvdyl47-66 ( for 3 consecutive months): Chronic kidney disease 15 or less: Kidney failureHouston Methodist Baytown HospitalGlucose ydpqfpopvom1701-29-73 05:40:00* Test Item Value Reference Range Interpretation Comments Glucose Level (test code = HHO2866) 85 74-118 [facility] or plasma calcium measurement (mass/volume)2019-10-19 05:40:00* Test Item Value Reference Range Interpretation Comments Calcium Level (test code = 79701-4) 8.0 8.4-10.2 [facility] or plasma magnesium measurement (mass/volume)2019-10-19 05:40:00* Test Item Value Reference Range Interpretation Comments Magnesium Level (test code = 06891-2) 1.7 1.3-2.1 [facility]ere[facility] or plasma total bilirubin measurement (mass/volume)2019-10-19 05:40:00* Test Item Value Reference Range Interpretation Comments Total Bilirubin (test code = 1975-2) 0.6 0.2-1.2 [facility] HospitalFluoroscopic procedure less than one hour sanmtsyl6078-23-79 05:40:00* Test Item Value Reference Range Interpretation Comments Aspartate Amino Transf (AST/SGOT) (test code = Aspartate Amino Transf (AST/SGOT)) 26 5-34 [facility]ererum or plasma alanine aminotransferase measurement (enzymatic activity/volume)2019-10-19 05:40:00* Test Item Value Reference Range Interpretation Comments Alanine Aminotransferase (ALT/SGPT) (test code = 1742-6) 10 0-55 [facility]ererum or plasma protein measurement (mass/volume)2019-10-19 05:40:00* Test Item Value Reference Range Interpretation Comments Total Protein (test code = 2885-2) 5.3 6.5-8.1 [facility]ere[facility] or plasma albumin measurement (mass/volume)2019-10-19 05:40:00* Test Item Value Reference Range Interpretation Comments Albumin (test code = 1751-7) 1.6 3.5-5.0 [facility] HospitalPlasma globulin measurement (mass/volume) 2019-10-19 05:40:00* Test Item Value Reference Range Interpretation Comments Globulin (test code = 40136-5) 3.7 2.3-3.5 [facility] or plasma albumin/globulin mass qlkbp9821-29-26 05:40:00* Test Item Value Reference Range Interpretation Comments Albumin/Globulin Ratio (test code = 1759-0) 0.4 0.8-2.0 [facility]ererum or plasma alkaline phosphatase measurement (enzymatic activity/volume)2019-10-19 05:40:00* Test Item Value Reference Range Interpretation Comments Alkaline Phosphatase (test code = 6768-6) 123 40-150 [facility] HospitalCapillary blood glucose measurement by glucometer (mass/volume)2019-10-18 15:30:00* Test Item Value Reference Range Interpretation Comments Bedside Glucose (test code = 22096-8) 111 70-120 Meter ID: [id number] Methodist Baytown HospitalABDOMEN-1VIEW (KUB) 2019-10-17 06:12:00 [place] [address] Patient Name: TERRELL FELIZ MR #: [id number] : 1945 Age/Sex: 74/M Req #: [id number] Adm Physician: SIRIA DENIS MD Ordered by: RAISA MARTIN MD Report #: [id number] Location: MED/SURG Room/Bed: 106-1 Procedure: [id number] DX/ABDOMEN-1VIEW ( KUB) Exam Date: 10/17/19 Exam Time: 05 REPORT STATUS: Signed Exam: KUB - 1 view Clinical History: NG tube placement. Comparison: CT abdomen/pelvis 2019. Findings/Impression: Enteric tube terminates in the stomach, the si de port is below the GE junction. Trace amount of free air under the right hem idiaphragm, likely reflecting interval surgery. Midline surgical ros. Air and contrast-filled colonic loops. No specific findings of bowel obstruc tion. Signed by: Dr. Johnathon Zamora MD on 10/17/2019 6:17 AM Dictated B y: JOHNATHON ZAMORA MD 6 [place] scribed By: JERZY on 10/17/19616 COPY TO: RAISA MARTIN MD Prothrombin time (PT) in platelet poor plasma by coagulation fpogw3560-69-15 05:30:00* Test Item Value Reference Range Interpretation Comments Prothrombin Time (test code = 5902-2) 15.8 11.9-14.5 [facility] HospitalINR in Platelet poor plasma by Coagulation edrok3034-63-25 05:30:00* Test Item Value Reference Range Interpretation Comments Prothromb Time International Ratio (test code = 6301-6) 1.18 Oral Anticoagulant Therapy INR Values:1. Low Intensity Therapy 1.5 - 2.02 . Moderate Intensity Therapy 2.0 - 3.03. High Intensity Therapy(1) 2.5 - 3. 54. High Intensity Therapy(2) 3.0 - 4.05. Panic Value INR > 5.0 [facility] HospitalPhosphorus uywycrrwguw8640-22-72 05:04:00 * Test Item Value Reference Range Interpretation Comments Phosphorus Level (test code = NXO3162) 4.0 2.3-4.7 [facility] HospitalFluoroscopic procedure less than one hour zrbvldmy6983-65-97 01:10:00* Test Item Value Reference Range Interpretation Comments Lactic Acid Level (test code = Lactic Acid Level) 0.5 0.5- 2.0 [facility] HospitalActivated partial thromboplastin time (aPTT) in platelet poor plasma by coagulation zztat2735-44-91 05:20:00* Test Item Value Reference Range Interpretation Comments Activated Partial Thromboplast Time (test code = 44122-7) 35.6 23.8-35.5 [facility] HospitalClostridium difficile A and B toxin assay 2019-10-12 19:30:00* Test Item Value Reference Range Interpretation Comments Clostridium Difficile Toxin A & B (test code = 184299865) NEGATIVE NEGATIVE Testing on stool aspirate specimens is outside activated sludge attendant claims since specime n type not validated on this assay.[facility] HospitalCT ABDOMEN/PELVIS A8288-11-25 14:15:00 [place] [address] Patient Name: TERRELL FELIZ MR #: [id number] : 1945 Age/Sex: 74/M Req #: [id number] Adm Physician: SIRIA DENIS MD Ordered by: RAISA MRATIN MD Report #: [id number] Location: MED/SURG Room/Bed: [facility] Procedure: [id number] CT/CT ABDOMEN/PELV IS W Exam Date: 10/12/19 Exam Time: 1320 REPORT STATUS: Signed EXAM: CT Abdomen and Pelvis WITH intravenous contrast INDICATION: Abdominal perforation C OMPARISON: CT abdomen and pelvis of 10/10/2019 TECHNIQUE: Abdomen and pelvis were scanned utilizing a multidetector helical scanner from the lung base to the pubic symphysis after administration of IV contrast. Coronal and sagittal reformations were obtained. Routine protocol was performed. Scan was performed during portal venous phase. IV CONTRAST: 100mL of Isovue 370 ORAL C ONTRAST: Gastrografin RADIATION DOSE: Total DLP: 622.3 mGy*cm Dose modulation, iterative reconstruction, and/or weight based adjustment of the mA /kV was utilized to reduce the radiation dose to as low as reasonably achievab le. FINDINGS: LOWER THORAX: Bibasilar dependent subsegmental atelectasis . Trace bilateral pleural effusions. HEPATOBILIARY: No focal liver lesion . Mild biliary ductal dilation status post cholecystectomy, likely due to rese rvoir effect. SPLEEN: No splenomegaly. PANCREAS: No focal masses or du ctal dilatation. ADRENALS: No adrenal nodules. KIDNEYS/URETERS: Unchanged bilateral renal cysts and atrophic appearance of kidneys. PELVIC ORGANS/KANE DDER: Unremarkable. PERITONEUM / RETROPERITONEUM: Again seen are multiple a reas of apparently extraluminal fluid/air. The largest is in the mid abdomen ( image 53) and two smaller areas are in the left upper quadrant (image 36) and left lower quadrant (image 61). There is no associated extravasation of oral c ontrast. The left upper quadrant pocket of air appears slightly larger compare d to 10/10/2019 and the other two foci appear essentially unchanged. LYMPH NO EAN: No lymphadenopathy. VESSELS: Diffuse atherosclerotic calcifications of th e nonaneurysmal abdominal aorta and major branches. GI TRACT: Multifocal wall thickening of small bowel in the abdomen at the previously described area s adjacent to suspected extraluminal collections of air/fluid. BONES AND SOFT TISSUES: No acute osseous injury. IMPRESSION: Redemonstration of m ultiple areas of apparently extraluminal fluid/air. The largest is in the mid abdomen (image 53) and two smaller areas are in the left upper quadrant (image 36) and left lower quadrant (image 61). There is no associated extravasation of oral contrast. The left upper quadrant pocket of air appears slightly large r compared to 10/10/2019 and the other two foci appear essentially unchanged. Signed by: Cain Young MD on 10/12/2019 2:34 PM Dictated By: CAIN Luong MD 33 Transcribed By: JERZY on 10/12/191433 COPY TO: RAISA MARTIN MD CHEST SINGLE (PORTABLE)2019-10-11 09:29:00 [place] [address] Patient Name: TERRELL FELIZ MR #: [id number] : 1945 Age/Sex: 74/M Req #: [id number] Adm Physician: SIRIA DENIS MD Ordered by: SUMMER WILDER MD Report #: [id number] Location: MED/SURG Room/Bed: [facility] Procedure: [id number] DX/CHEST SINGLE (P ORTABLE) Exam Date: 10/10/19 Exam Time: 1710 REPORT STATUS: Signed EXAMINATION: [facility] ST SINGLE (PORTABLE) INDICATION: Cough COMPARISON: CT abdomen and pelvis 10/10/2019, chest radiograph 06/16/2017 FINDINGS: LINES/TUBE S:EKG leads overlie the chest. LUNGS:The lungs are mildly hyperinflated. Th ere is perihilar fullness and indistinctness of the pulmonary vasculature. PLEURA:No pleural effusion or pneumothorax. MEDIASTINUM:Cardiomediastinal silhouette is stably enlarged. BONES/SOFT TISSUES:No acute osseous injury. ABDOMEN:No free air under the diaphragm. IMPRESSION: Hyperinfla marva lungs. Cardiomegaly and mild pulmonary interstitial edema. Signed by: Cain Young MD on 10/11/2019 9:30 AM Dictated By: CAIN YOUNG MD Elec tronically Signed By: CAIN YOUNG MD on 10/11/19929 Transcribed By: JERZY on 10/11/19929 COPY TO: SUMMER WILDER MD CTA ABD/LGLIAU8354-35-03 11:58:00 [place] [address] Patient Name: TERRELL FELIZ MR #: [id number] : 1945 Age/Sex: 74/M Req #: [id number] Adm Physician: SIRIA DENIS MD Ordered by: ALYX HARRELL DO Report #: [id number] Location: [facility] Room/Bed: [place] [address] Procedure: [id number] CT/CTA ABD/PELVIS Exam Date: 10/10/19 Exam Time: 09 REPORT STATUS: Signed CTA of the abdomen and pe lvis. History: Abdominal pain, SMA stenosis. Comparison: CT abdome n/pelvis with contrast from 10/08/2019. Technique: Multidetector CT scanning of the abdomen and pelvis was performed from the level of the lung bases to t he inferior pubic rami before and after after the administration of intravenou s contrast material according to the CTA protocol. Coronal sagittal reformats were obtained. RADIATION DOSE: Total DLP: 1418.21 mGy*cm Dose modulation, iterative reconstruction, and/or weight based adjustment of the m A/kV was utilized to reduce the radiation dose to as low as reasonably achieva ble. FINDINGS: Vascular: There is extensive atherosclerotic plaquin g of the abdominal aorta and branch vessels. The abdominal aorta is normal in course and caliber without evidence for aneurysmal dilatation. Maximal AP diam eter is are 2.5 cm at the diaphragmatic hiatus, 2.4 cm at the super mesenteric segment, 2.2 cm at the mesenteric segment, 2.0 cm at the renal segment, 1.8 c m infrarenal segment, and 1.8 cm proximal to the bifurcation. Small amount of posterior crescentic mural thrombus noted within the distal abdominal aorta ab ove the bifurcation. The origin of the celiac artery is patent. The common hepatic, splenic, and left gastric arteries are patent without significant st enosis or other abnormality. The SMA is patent with prominent atherosclerotic plaquing at its origin resulting in approximately 50-70% luminal narrowing. Th e remaining SMA and branch vessels are widely patent. The bilateral renal henry jhonny are patent with atherosclerotic plaquing noted at the origin of the right renal artery resulting in approximately 50% luminal narrowing. The NATHANAEL is pat ent without significant stenosis. The bilateral common iliac arteries and external iliac, and internal iliac arteries are patent without hemodynamicall y significant stenosis. Nonvascular: 7 mm subpleural nodule again identi fied within the right lower lobe. There is bibasilar atelectasis/scarring. The liver is normal in size and attenuation without evidence for focal abnor mality. The gallbladder is surgically absent. There is no biliary ductal dilat ation. The stomach, spleen, pancreas, and bilateral adrenal glands are unremar kable. Mild prominence of the pancreatic duct again noted. The kidneys are normal in location. Multiple nonenhancing exophytic lesions are identified salomon aterally likely reflecting cysts. There is no evidence for hydronephrosis. No ureteral stone or dilatation is appreciated. Circumferential wall thickening a gain noted of the urinary bladder which may reflect underdistention. A cystiti s could have a similar appearance. 5 mm calcification versus stone is identifi ed within the urinary bladder distal to the left ureterovesical junction. The prostate is enlarged. The IVC is unremarkable. Please note evaluation the bowel is limited without the use of enteric contrast material. Again noted are upper normal caliber, fluid-filled loops of small bowel within the abdome n and pelvis. There is abnormal wall thickening, possible small foci of extral uminal air and adjacent inflammatory change identified along a loop of small b owel within the mid abdomen (axial image 62). There is no evidence for high-gr michelle bowel obstruction. There is no ascites. No abnormally enlarged lymph nodes are identified within the abdomen or pelvis. The osseous structures demons trate stable degenerative changes without evidence for acute fracture or destr uctive process. IMPRESSION: 1. Extensive abdominal aortic atheroscl erosis. The celiac axis, SMA, bilateral renal arteries, and NATHANAEL remain patent. Atherosclerotic plaquing at the origin of the SMA results in approximately 50 -70% luminal narrowing. The more distal aspects of the SMA and branch vessels are widely patent. 2. Again identified are findings that can be seen with e nterocolitis. Additionally, abnormal wall thickening, adjacent inflammatory ch kike, and suspected foci of extraluminal air identified adjacent to a loop of small bowel within the mid abdomen which may reflect a contained perforation. 3. Additional stable findings as detailed above and not significantly escobar ed from the recent prior examination from 10/08/2019. Signed by: Dr. Amaury Davis MD on 10/10/2019 12:21 PM Dictated By: AMAURY [facility] Signed By: AMAURY DAVIS MD on 10/10/19 1221 Transcribed By: JERZY on 1221 COPY TO: ALYX HARRELL DO Fluoroscopic procedure less than one hour [id number] 05:15:00* Test Item Value Reference Range Interpretation Comments Differential Total Cells Counted (test code = Differcora tial Total Cells Counted) 100 [facility] blood neutrophils/100 leukocytes 2019-10-10 05:15:00* Test Item Value Reference Range Interpretation Comments Neutrophils % (Manual) (test code = 88096-5) 85 40-74 [facility] blood lymphocytes/100 leukocytes 2019-10-10 05:15:00* Test Item Value Reference Range Interpretation Comments Lymphocytes % (Manual) (test code = 737-7) 8 19-48 [facility] blood monocytes/100 leukocytes 2019-10-10 05:15:00* Test Item Value Reference Range Interpretation Comments Monocytes % (Manual) (test code = 744-3) 5 3.4-9.0 [facility] blood eosinophil count as percentage of total [id number] 05:15:00* Test Item Value Reference Range Interpretation Comments Eosinophils % (Manual) (test code = 714-6) 2 0-7 [facility] count by estimate (number/volume)2019-10-10 05:15:00* Test Item Value Reference Range Interpretation Comments Platelet Estimate (test code = 18035-0) MODERATELY DECREASED [facility] HospitalPlatelet omvxkjttsp1541-49-17 05:15:00* Test Item Value Reference Range Interpretation Comments Platelet Morphology Comment (test code = 84483-4) See Comment NO EDTA PLT CLUMPS SEENHouston Methodist Baytown HospitalFluoroscopic procedure less than one hour phnrotxj7392-59-05 05:15:00* Test Item Value Reference Range Interpretation Comments Hemoglobin A1c Percent (test code = Hemoglobin A1c Percent) 4.4 4.0-7.0 [facility] thyrotropin measurement by detection limit <= 0.005 miu/l (units/volume)2019-10-10 05:15:00* Test Item Value Reference Range Interpretation Comments Thyroid Stimulating Hormone (TSH) (test code = 09043-8) 1.511 0.350-4.940 [facility] creatine kinase measurement (enzymatic activity/volume)2019-10-09 21:55:00* Test Item Value Reference Range Interpretation Comments Creatine Kinase (test code = 2157-6) 56 30-200 [facility] creatine kinase MB measurement (mass/volume)2019-10-09 21:55:00* Test Item Value Reference Range Interpretation Comments Creatine Kinase MB (test code = 48041-0) 2.50 0-5.0 [facility] HospitalTroponin I measurement by highly sensitive enzyme aqmkhbhochd3818-27-49 21:55:00* Test Item Value Reference Range Interpretation Comments Troponin I (test code = 71629-2) 0.024 0-0.300 [facility] HospitalQualitative serum or plasma hepatitis B virus e antibody by enzyme klempelxjzx1674-31-73 21:55:00* Test Item Value Reference Range Interpretation Comments Hepatitis Be Antibody (test code = 77967-1) Negative Negative Performed at: [address] [id number] Head Teller: Vika Cabello MD, Phone: [phone]. [facility] Medical Centererum or plasma hepatitis B virus core antibody detection by icmnttyauji7037-95-25 21:55:00* Test Item Value Reference Range Interpretation Comments Hepatitis B Core Total Antibody (test code = 26989-6) Negative Negative [facility] hepatitis B virus surface antigen detection by yyevlqfxdyw0111-90-99 21:55:00* Test Item Value Reference Range Interpretation Comments Hepatitis B Surface Antigen (test code = 5196-1) Negative Negat bella [facility] or plasma hepatitis B virus core IgM antibody detection by jkawtgwexdb0669-21-07 21:55:00* Test Item Value Reference Range Interpretation Comments Hepatitis B Core IgM Antibody (test code = 73605-6) Negative Ne gative Performed at: [facility] [facility] [id number] Director: John Buchanan MD, Phone: [phone] Methodist Bay[facility] HospitalUrine color hggilwjeoekfd4902-44-52 15:35:00* Test Item Value Reference Range Interpretation Comments Urine Color (test code = 5778-6) SAMMY YELLOW [facility] HospitalUrine danodrv8435-46-19 15:35:00* Test Item Value Reference Range Interpretation Comments Urine Clarity (test code = 32088-9) SL CLOUDY CLEAR [facility] gravity of Urine by Test strip 2019-10-09 15:35:00* Test Item Value Reference Range Interpretation Comments Urine Specific [place] (test code = 5811-5) 1.020 1.010-1.02 5 [facility] Hospital[facility] pH measurement by automated test yycxd5014-01-08 15:35:00* Test Item Value Reference Range Interpretation Comments Urine pH (test code = 95948-4) 7.5 5-7 [facility] Hospital[facility] leukocyte esterase detection by vwukuvfc0240-98-33 15:35:00* Test Item Value Reference Range Interpretation Comments Urine Leukocyte Esterase (test code = 5799-2) NEGATIVE NEGATIVE [facility] HospitalUrine nitrite qqapzmxqv4647-05-95 15:35:00* Test Item Value Reference Range Interpretation Comments Urine Nitrite (test code = 69212-5) NEGATIVE NEGATIVE [facility] Hospital[facility] protein measurement by test strip (mass/volume)2019-10-09 15:35:00* Test Item Value Reference Range Interpretation Comments Urine Protein (test code = 5804-0) >=300 NEGATIVE [facility] HospitalUrine glucose qipvlycpp4483-34-16 15:35:00* Test Item Value Reference Range Interpretation Comments Urine Glucose (UA) (test code = 2349-9) NEGATIVE NEGATIVE [facility] HospitalUrine ketones detection by automated test ttomb7779-20-03 15:35:00* Test Item Value Reference Range Interpretation Comments Urine Ketones (test code = 18980-6) NEGATIVE NEGATIVE [facility] HospitalUrine urobilinogen measurement by test strip (mass/volume)2019-10-09 15:35:00* Test Item Value Reference Range Interpretation Comments Urine Urobilinogen (test code = 07588-8) 0.2 0.2-1 [facility] total bilirubin measurement (mass/volume)2019-10-09 15:35:00* Test Item Value Reference Range Interpretation Comments Urine Bilirubin (test code = 1978-6) SMALL NEGATIVE [facility] HospitalUrine erythrocytes lytnvpgfp8284-02-89 15:35:00* Test Item Value Reference Range Interpretation Comments Urine Blood (test code = 38000-5) 3+ NEGATIVE [facility] HospitalAutomated urine sediment leukocyte count by microscopy (number/high power field)2019-10-09 15:35:00* Test Item Value Reference Range Interpretation Comments Urine WBC (test code = 5821-4) 0-5 0-5 [facility] HospitalErythrocytes detection in urine sediment by light ynokwpfmer2579-88-71 15:35:00* Test Item Value Reference Range Interpretation Comments Urine RBC (test code = 84253-3) 21-50 0-5 [facility] HospitalBacteria detection in urine sediment by light ckmrjfwifn8998-90-68 15:35:00* Test Item Value Reference Range Interpretation Comments Urine Bacteria (test code = 45637-3) MODERATE NONE [facility] HospitalEpithelial cells detection in urine sediment by light mptlxkvvwi4215-46-03 15:35:00* Test Item Value Reference Range Interpretation Comments Urine Epithelial Cells (test code = 72943-0) NONE NONE [facility] HospitalCT ABDOMEN/PELVIS [id number] 00:11:00 [facility] [address] [address] Patient Name: TERRELL FELIZ MR #: [id number] : 1945 Age/Sex: 74/M Req #: [id number] Adm Physician: Ordered by: ALYX HARRELL DO Report #: [id number] Location: ER Room/Bed: Procedure: [id number] CT/CT ABDOMEN/PEL VIS W Exam Date: 10/08/19 Exam Time: 2315 REPORT STATUS: Signed EXAM: CT Abdomen and Pelvis WITH contrast INDICATION: Abdominal pain, nausea, vomiting, lynnette rrhea COMPARISON: Abdominal CT 05/27/2017 TECHNIQUE: Abdomen and pelvis wer e scanned utilizing a multidetector helical scanner from the lung base to the pubic symphysis after administration of IV contrast. Coronal and sagittal refo rmations were obtained. Routine protocol was performed. Scan was performed whe n during portal venous phase. IV CONTRAST: 100 mL of Isovue 370 ORAL CONTRAST: None COMPLICATIONS: None RADIATION DOSE: Total DLP: 531 mGy*cm Estimated effective dose: (DLP x 0.015 x siz e factor) mSv CTDIvol has been reviewed. It is below the limits set by [facility] Radiation Protocol Committee (RPC). Dose modulation, iterative recons truction, and/or weight based adjustment of the mA/kV was utilized to reduce t he radiation dose to as low as reasonably achievable. FINDINGS: JR ES and TUBES: None. LOWER THORAX: Subendocardial fat deposition in the lef t ventricular apex is the sequelae of remote cardiac infarction. Mild cardio n egative.. Hyperdensities in the coronary arteries. A 7 mm subpleural nodule in the basolateral right lower lobe. HEPATOBILIARY: No focal hepatic l esions. No biliary ductal dilation. GALLBLADDER: There are cholecystectomy clips. SPLEEN: Mild splenomegaly. PANCREAS: The main pancreatic duct within the pancreatic head is mildly dilated, 5 mm in diameter. No obvio us mass. ADRENALS: No adrenal nodules KIDNEYS/URETERS: Kidneys enh ance symmetrically. Several simple appearing bilateral renal cysts. No hydro nephrosis. No stones. GI TRACT: No abnormal distention, wall thickening, or evidence of bowel obstruction. Several fluid-filled loops of nondilated small bowel, and liquid stool in throughout most of the colon. Appendix is normal. PELVIC ORGANS/BLADDER: Mild prostatomegaly. Urinary bladder under distended with circumferential urinary bladder wall thickening, correlate for cystitis. LYMPH NODES: No lymphadenopathy. VESSELS: The main portal vein is mil dly dilated, 1.9 cm in diameter. Extensive arterial atherosclerosis in the abd omen, with possible flow-limiting stenosis at the superior mesenteric artery d ue to calcific atherosclerotic plaque. PERITONEUM / RETROPERITONEUM: No araceli e air or fluid. BONES: Degenerative changes. SOFT TISSUES: Unremar kable. IMPRESSION: 1. Findings can seen with enterocolit is. 2. 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 3. Extensive arterial atherosclerosis in the abdomen, with possible flow-limiting stenosis at the s uperior mesenteric artery due to calcific atherosclerotic plaque. 4. Mil d prostatomegaly. Urinary bladder under distended with circumferential urinary bladder wall thickening, correlate for cystitis. 5. Mild main pancreatic duct dilation without obvious mass. Recommend follow-up abdominal CT with cont rast in 6 months, pancreas mass protocol. 6. Mild splenomegaly. Dayanna d by: Felix Escobar DO on 10/09/2019 12:21 AM Dictated By: FELIX PETERSEN DO Transcri bed By: JERZY on 10/09/1920 COPY TO: ALYX HARRELL DO BNP Yni-[id number] 21:02:00* Test Item Value Reference Range Interpretation Comments B-Type Natriuretic Peptide (test code = 11462-3) 779.9 0-100 [facility] or plasma lipase measurement (enzymatic activity/volume)2019-10-08 21:02:00* Test Item Value Reference Range Interpretation Comments Lipase (test code = 3040-3) 7 8-78 [facility] HospitalFluoroscopic procedure less than one hour grtkwdqu1240-77-39 21:02:00* Test Item Value Reference Range Interpretation Comments Coronavirus (PCR) (test code = Coronavirus (PCR)) NOT DETECTED NOTD ETECTED SARS-COV-2 (COVID19), HIGHRISK, RT-PCRNegative results do not preclude SARS-CoV- 2 infection and should not be used as the sole basis for patient management deci sions. Negative results must be combined with clinical observations, patient his tory, and epidemiological information. Optimum specimen types and timing for pea k viral levels during infections caused by SARS-CoV-2 have not been determined. Collection of multiple specimens ot types of specimens may be necessary to detec t virus. Improper specimen collection and handling, sequence variability under p rimers/probes, or organism present below the limit of detection may lead to fals e negative results. Positive and negative predictive values of testing are highl y dependent on prevalance. False negative test results are more likely when prev alence is high.The expected result is negative (not detected).The SARS-CoV-2 guilherme t is intended for the qualitative detection of nucleic acid from SARS-CoV-2 in n asopharyngeal and oropharyngeal swab samples from patients who meet COVID-19 cli nical and or epidemiological criteria. For lower respiratory tract specimens, th e assay is submitted for authoriztion by FDA under an Emergency Use Authorizatio n (EUA). Testing methodology is real time RT-PCR. If received as separate collec tion devices, nasopharygeal and oropharyngeal specimens are combined for analysi s. Additional specimens may be split to a separate accession for analysi and rep orting as this test includes a single unit of service.Test results must be corre lated with clinical presentation and evaluated in the context of other laborator y and epidemiologic data. Test performance can be affected because the epidemiol ogy and clinical spectrum of infection caused by SARS-CoV-2 is not fully known. For example, the optimum types of specimens to collect and when during the cours e of infection these specimens are most likely to contain detectable viral RNA m ay not be known.This test has not been Food and Drug Administration (FDA) cleare d or approved and has been authorized by FDA under an Emergency Use Authorizatio n (EUA). The test is only authorized for the duration of the declaration that ci rcumstances exist justifying the authorization of emergency use of in vitro diag nostic tests for detection and/or diagnosis of SARS-CoV-2 under section 564(b) o f the Act, 21 U.S.C. section 360bbb-3(b)(1), unless the authorization is termina marva or revoked sooner. [facility] are certified under the C linical Laboratory Improvement Amendments of 1988 (CLIA), 42 U.S.C. section 263a , to perform high complexity tests.Testing performed by [facility] [id number] [place], [place] [phone] Director: Jin Vega M.D.CLIA # [id number] Methodist Baytown HospitalBlood knmwdxg0936-23-77 21:02:00* Test Item Value Reference Range Interpretation Comments Blood Culture (test code = 86154467) NO GROWTH AFTER 5 DAYS, FINAL REPORT [facility] HospitalBacterial blood mvfomqw1422-29-63 21:02:00* Test Item Value Reference Range Interpretation Comments Blood Culture (test code = 600-7) ESCHERICHIA COLI [facility]- XR HAND 3 + V [id number] 13:38:00 FAX: Jordan Hansen MD [phone] [place]: V St: REG FAX: Matthew Velasco MD [phone] Name: TERRELL FELIZ [facility] [place] : 1945 Age/S: 74/M [address] Unit #: [id number] [facility] [place] [phone] Phys: Matthew Wiley MD Acct: [id number] Dis Date: Status: REG RCR PHONE #: [phone] Exam Date: 09/06/2019 1328 FAX #: Reason: LEFT HAND FRACTURE EXAMS: CPT CODE: [id number] XR HAND 3 + [place] [address]87 HISTORY: Left hand fracture. COMPARISON: None avai lable. Location: [facility]. 3 views of the left hand: Complex impacted fracture of the distal radius with sclerosis. V ertical component along the ulnar margin with intra-articular extension an d mild ulnar angulation. Polyarticular joint space narrowing. No AVN of th e lunate or the scaphoid bones. IMPRESSION: Co mplex impacted fracture of the distal radius with sclerotic margins and a vertical component along the ulnar margin with intra-articular extensi on and mild ulnar angulation. at 1339 Reported and signed by: Tae Hodgson M.D. CC: Jordan Alex MD; Matthew Wiley MD Technologist: RT Dev(R) Trnscrd Date/Time/By: 09/06/2019 (0545) : By: [email or web address] Orig Print D/T: S: 09/06/2019 (4129) PAGE 1 Signed Report [id number] 12:10:00* Test Item Value Reference Range Interpretation Comments GLUBED (test code = GLUBED) 101 mg/dL 74-106 N Performed by certified ram car operator at [facility] [id number] 21:04:00* Test Item Value Reference Range Interpretation Comments GLUBED (test code = GLUBED) 117 mg/dL 74-106 H Performed by certified ram car operator at [facility] [id number] 11:44:00* Test Item Value Reference Range Interpretation Comments GLUBED (test code = GLUBED) 92 mg/dL 74-106 N Performed by certified ram car operator at [facility] [id number] 08:25:00* Test Item Value Reference Range Interpretation Comments GLUBED (test code = GLUBED) 88 mg/dL 74-106 N Performed by certified ram car operator at [facility] RENAL FUNCTION [id number] 07:34:00* Test Item Value Reference Range Interpretation Comments SODIUM (test code = NA) 135 mmol/L 136-145 L POTASSIUM (test code = K) 4.3 mmol/L 3.5-5.1 N CHLORIDE (test code = CL) 96.0 mmol/L 98-107 L CARBON DIOXIDE (test code = CO2) 27.0 mmol/L 21-32 N ANION GAP (test code = GAP) 16.3 10-20 N GLUCOSE (test code = GLU) 101 mg/dL 74-106 N BLOOD UREA NITROGEN (test code = BUN) 72 mg/dL 7-18 H CREATININE (test code = CREAT) 8.40 mg/dL 0.7-1.3 H ALBUMIN (test code = ALB) 1.9 g/dL 3.4-5.0 L CALCIUM (test code = CA) 8.2 mg/dL 8.5-10.1 L PHOSPHORUS (test code = PHOS) 3.8 mg/dL 2.5-4.9 N CBC W/O [id number] 06:22:00* Test Item Value Reference Range Interpretation Comments WHITE BLOOD CELL (test code = WBC) 12.6 K/mm3 4.5-12.5 H RED BLOOD CELL (test code = RBC) 3.75 mill/mm3 4.0-5.8 L HEMOGLOBIN (test code = HGB) 11.3 gram/dL 13.0-17.5 L HEMATOCRIT (test code = HCT) 35.7 % 42.0-52.0 L MEAN CELL VOLUME (test code = MCV) 95.2 fL 80-98 N MEAN CELL HGB (test code = MCH) 30.1 picogram 27.0-33.0 N MEAN CELL HGB CONCETRATION (test code = MCHC) 31.7 gram/dL 33.0-36. 0 L RED CELL DISTRIBUTION WIDTH (test code = RDW) 13.0 % 11.6-16. 2 N PLATELET COUNT (test code = PLT) 210 K/mm3 150-450 N MEAN PLATELET VOLUME (test code = MPV) 10.0 fL 6.7-11.0 N - CT ABD PELVIS W WO [id number] 20:26:00 Name: TERRELL FELIZ [facility] : 1945 Age/S: 74 / M [address] Unit #: [id number] Loc: [place] [address] Phys: Kyree Aguilar MD Acct: [id number] Dis Date: Status: ADM IN PHONE #: [phone] Exam Date: 06/18/2019 1950 FAX #: [phone] Reason: r/o infectious process EXAMS: CPT CODE: [id number] CT ABD PELVIS W WO CONT 30670 REASON FOR EXAM: r/o infectious process EXAM ORDER DATE: 06/18/2019 12:16 PM Ordering M.D.: Kyree Aguilar MD PROCEDURE: - CT CHEST W/O CONTRAST, - CT ABD PELVIS W WO CONT noncontrast axial CT images were acquired through the chest/abdomen/pelvis followed by contrast-enhanced CT scan of the abdomen and pelvis. Sagittal and coronal reformatted images were generated. Automated exposure control was utilized for this reduction. Phases of contrast: venous and delayed COMPARISON: CT of the chest December 2014 FINDINGS: The absence of IV contrast limits sensitivity of this exam for the detection of soft tissue pathology in the thorax Visualized neck: Grossly normal Airways, Lungs and Pleura: There is mucus within the trachea. There are small bilateral pleural effusions and there is atelectasis in the left lower lobe. Superimposed consolidation in the atelectatic lung cannot be excluded. Additional subsegmental atelectasis is present in the lingula a nd in the right lower lobe Heart, great vessels, pulmonary vessels , mediastinum: Severe atherosclerotic disease is present in the left anter ior descending coronary artery. Mild calcifications are also present in th e left circumflex and right coronary arteries. There is fatty metaplasia o f the left ventricle likely representing chronic ischemic changes Thoracic Lymph nodes: No axillary, internal mammary, or mediastinal adenopathy. Hilar lymph nodes are suboptimally evaluated due to the absenc e of IV contrast Hepatobiliary system: Prior cholecystectomy. Live r appears to be within normal limits. Dilation of the biliary tree is like ly secondary to the patient's prior cholecystectomy Pancreas : Normal PAGE 1 Signed Report (CON TINUED) Name: TERRELL FELIZ [facility] : 1945 Age/S: 74 / M [address] [facility] Unit #: [id number] Loc: [place] [address] Phys: Kyree Bryant MD Acct: [id number] Dis Date: Status: ADM IN ONE #: [phone] Exam Date: 06/18/20191949 FAX #: Reason: r/o infectious process EXA MS: CPT CODE: [id number] CT AB D PELVIS W WO CONT 58183 <Continued> Spleen: Moderately enlarged measuring up to 14.5 cm craniocaudally Adrenal glands: Normal Genitourinary system: The kidneys are atrophic and there are multiple cortical and parapelvic cysts in both kidney. The largest cyst is located in the left kidney and measures 3.8 cm in size. Prostate gland is markedly enlarged. There is a hyperdensity in the dependent bladder () measuring less than 3 mm in size which may represent a stone. This hyperdensity is located next to the left ure terovesical junction however there is no ipsilateral hydroureter. Gastrointestinal tract and appendix: Moderate colonic stool burden is present. Appendix, small bowel, and stomach are within normal limits Abdominal vascular structures: There is extensive atherosclerotic dis ease in the abdominal aorta that extends into the iliac arteries. Peritoneum and retroperitoneum: No free fluid or free air. No omental or mesenteric masses. No abnormal lymph nodes. Musculoskeletal struc tures, chest wall, and abdominal wall: Posttraumatic changes are seen invo lving the right seventh and sixth ribs. Fat-containing left-sided inguinal hernia is present. IMPRESSION: Consolidative opacity in the left lung base likely represents atelectatic changes. However a sup erimposed consolidation cannot be excluded. Coronary and aortic atherosclerosis is above with chronic ischemic changes involving the lef t ventricle. Mild dilation of the intra and extrahepatic biliary ducts i s likely secondary to the patient's age and prior cholecystectomy. Findings suggest a stone within the urinary bladder. Although this st one is located near the left ureterovesical junction, there is no eviden ce of left-sided ureteral obstruction. Location: RR * * at 2025 Reported and signed by: Woody Carbone MD PAGE 2 Signed Report (CONTINUED) Name: TERRELL FELIZ [facility] : 1945 Age/S: 74 / M [address] Unit #: [id number] Loc: [place] [address] Phys: Kyree Aguilar MD Acct: [id number] Dis Date: Status: ADM IN PHONE #: [phone] Exam Date: 2019 FAX #: [phone] Reason: r/o infectious p rocess EXAMS: CPT CODE: [id number] CT ABD PELVIS W WO CONT 741 78 <Continued> CC: Ephraim Newton MD; Jordan Alex MD; Kyree Aguilar MD Technologist:RT Nereyda(R)(CT) CTDI: DLP: Trnscb Date/Time: 06/18/2019 (2025) t.SDR.RR31 Orig Print D/T: S: 06/18/2019 (2028) PAGE 3 Signed Report - CT CHEST W/O [id number] 20:26:00 Name: TERRELL FELIZ [facility] : 1945 Age/S: 74 / M [address] Unit #: [id number] Loc: [place] [address] Phys: Kyree Aguilar MD Acct: [id number] Dis Date: Status: ADM IN PHONE #: [phone] Exam Date: 06/18/20191949 FAX #: [phone] Reason: r/o infectious process EXAMS: CPT CODE: [id number] CT CHEST W/O CONTRAST 36189 REASON FOR EXAM: r/o infectious process EXAM ORDER DATE: 06/18/2019 12:16 PM Ordering M.D.: Kyree Aguilar MD PROCEDURE: - CT CHEST W/O CONTRAST, - CT ABD PELVIS W WO CONT noncontrast axial CT images were acquired through the chest/abdomen/pelvis followed by contrast-enhanced CT scan of the abdomen and pelvis. Sagittal and coronal reformatted images were generated. Automated exposure control was utilized for this reduction. Phases of contrast: venous and delayed COMPARISON: CT of the chest December 2014 FINDINGS: The absence of IV contrast limits sensitivity of this exam for the detection of soft tissue pathology in the thorax Visualized neck: Grossly normal Airways, Lungs and Pleura: There is mucus within the trachea. There are small bilateral pleural effusions and there is atelectasis in the left lower lobe. Superimposed consolidation in the atelectatic lung cannot be excluded. Additional subsegmental atelectasis is present in the lingula a nd in the right lower lobe Heart, great vessels, pulmonary vessels , mediastinum: Severe atherosclerotic disease is present in the left anter ior descending coronary artery. Mild calcifications are also present in th e left circumflex and right coronary arteries. There is fatty metaplasia o f the left ventricle likely representing chronic ischemic changes Thoracic Lymph nodes: No axillary, internal mammary, or mediastinal adenopathy. Hilar lymph nodes are suboptimally evaluated due to the absenc e of IV contrast Hepatobiliary system: Prior cholecystectomy. Live r appears to be within normal limits. Dilation of the biliary tree is like ly secondary to the patient's prior cholecystectomy Pancreas : Normal PAGE 1 Signed Report (CON TINUED) Name: TERRELL FELIZ [facility] : 1945 Age/S: 74 / M [address] [facility] Unit #: [id number] Loc: [place] [address] Phys: Kyree Bryant MD Acct: [id number] Dis Date: Status: ADM IN ONE #: [phone] Exam Date: 06/18/20191949 FAX #: Reason: r/o infectious process EXA MS: CPT CODE: [id number] CT CH EST W/O CONTRAST 68358 <Continued> Spleen: Moderately enlarged measuring up to 14.5 cm craniocaudally Adrenal glands: Normal Genitourinary system: The kidneys are atrophic and there are multiple cortical and parapelvic cysts in both kidney. The largest cyst is located in the left kidney and measures 3.8 cm in size. Prostate gland is markedly enlarged. There is a hyperdensity in the dependent bladder (3/) measuring less than 3 mm in size which may represent a stone. This hyperdensity is located next to the left ure terovesical junction however there is no ipsilateral hydroureter. Gastrointestinal tract and appendix: Moderate colonic stool burden is present. Appendix, small bowel, and stomach are within normal limits Abdominal vascular structures: There is extensive atherosclerotic dis ease in the abdominal aorta that extends into the iliac arteries. Peritoneum and retroperitoneum: No free fluid or free air. No omental or mesenteric masses. No abnormal lymph nodes. Musculoskeletal struc tures, chest wall, and abdominal wall: Posttraumatic changes are seen invo lving the right seventh and sixth ribs. Fat-containing left-sided inguinal hernia is present. IMPRESSION: Consolidative opacity in the left lung base likely represents atelectatic changes. However a sup erimposed consolidation cannot be excluded. Coronary and aortic atherosclerosis is above with chronic ischemic changes involving the lef t ventricle. Mild dilation of the intra and extrahepatic biliary ducts i s likely secondary to the patient's age and prior cholecystectomy. Findings suggest a stone within the urinary bladder. Although this st one is located near the left ureterovesical junction, there is no eviden ce of left-sided ureteral obstruction. Location: RR * * at 2025 Reported and signed by: Woody Carbone MD PAGE 2 Signed Report (CONTINUED) Name: TERRELL FELIZ [facility] : 1945 Age/S: 74 / M [address] [facility] Unit #: [id number] Loc: [place] [address] Phys: Kyree Aguilar MD Acct: [id number] Dis Date: Status: ADM IN PHONE #: [phone] Exam Date: 2019 1950 FAX #: [phone] Reason: r/o infectious p rocess EXAMS: CPT CODE: [id number] CT CHEST W/O CONTRAST 712 50 <Continued> CC: Ephraim Newton MD; Jordan Alex MD; Kyree Aguilar MD Technologist:Prasanth Santiago, RT(R)(CT) CTDI: DLP: Trnscb Date/Time: 06/18/2019 (2025) [email or web address].RR31 Orig Print D/T: S: 06/18/2019 (2028) PAGE 3 Signed Report [id number] 16:37:00* Test Item Value Reference Range Interpretation Comments GLUBED (test code = GLUBED) 118 mg/dL 74-106 H Performed by certified ram car operator at [facility] [id number] 12:02:00* Test Item Value Reference Range Interpretation Comments GLUBED (test code = GLUBED) 88 mg/dL 74-106 N Performed by certified ram car operator at [facility] [id number] 08:15:00* Test Item Value Reference Range Interpretation Comments GLUBED (test code = GLUBED) 90 mg/dL 74-106 N Performed by certified ram car operator at [facility] URINALYSIS [id number] 22:22:00* Test Item Value Reference Range Interpretation Comments UA COLOR (test code = COLU) YELLOW YELLOW UA APPEARANCE (test code = APPU) CLEAR CLEAR UA GLUCOSE DIPSTICK (test code = DGLUU) NEGATIVE mg/dL NEGATIVE UA BILIRUBIN DIPSTICK (test code = BILU) NEGATIVE mg/dL NEGATIVE UA KETONE DIPSTICK (test code = KETU) NEGATIVE mg/dL NEGATIVE UA SPECIFIC GRAVITY (test code = SGU) 1.010 1.001-1.035 UA BLOOD DIPSTICK (test code = DYAN) Negative mg/dL NEGATIVE UA PH DIPSTICK (test code = MORGAN) 7.5 5.0-8.0 UA PROTEIN DIPSTICK (test code = PROU) 70 (1+) mg/dL NEGATIVE A UA UROBILINIOGEN DIPSTICK (test code = URO) Normal mg/dL NEGATIVE UA NITRITE DIPSTICK (test code = DAYTON) NEGATIVE NEGATIVE UA LEUKOCYTE ESTERASE W REFLEX (test code = LEUUR) NEGATIVE Chela/uL NEGATIVE UA WBC (test code = WBCU) 0-5 per HPF 0-5 UA RBC (test code = RBCU) 0-2 #/HPF 0-5 UA EPITHELIAL CELLS (test code = EPIU) FEW per HPF FEW UA BACTERIA (test code = BACU) NONE SEEN #/HPF NONE URINALYSIS [id number] 22:21:00* Test Item Value Reference Range Interpretation Comments UA COLOR (test code = COLU) YELLOW YELLOW UA APPEARANCE (test code = APPU) CLEAR CLEAR UA GLUCOSE DIPSTICK (test code = DGLUU) NEGATIVE mg/dL NEGATIVE UA BILIRUBIN DIPSTICK (test code = BILU) NEGATIVE mg/dL NEGATIVE UA KETONE DIPSTICK (test code = KETU) NEGATIVE mg/dL NEGATIVE UA SPECIFIC GRAVITY (test code = SGU) 1.010 1.001-1.035 UA BLOOD DIPSTICK (test code = DYAN) Negative mg/dL NEGATIVE UA PH DIPSTICK (test code = MORGAN) 7.5 5.0-8.0 UA PROTEIN DIPSTICK (test code = PROU) 70 (1+) mg/dL NEGATIVE A UA UROBILINIOGEN DIPSTICK (test code = URO) Normal mg/dL NEGATIVE UA NITRITE DIPSTICK (test code = DAYTON) NEGATIVE NEGATIVE UA LEUKOCYTE ESTERASE W REFLEX (test code = LEUUR) NEGATIVE Chela/uL NEGATIVE UA WBC (test code = WBCU) per HPF 0-5 UA RBC (test code = RBCU) per HPF 0-5 UA EPITHELIAL CELLS (test code = EPIU) per HPF Few UA BACTERIA (test code = BACU) per HPF NONE URINALYSIS [id number] 22:21:00* Test Item Value Reference Range Interpretation Comments UA COLOR (test code = COLU) YELLOW YELLOW UA APPEARANCE (test code = APPU) CLEAR CLEAR UA GLUCOSE DIPSTICK (test code = DGLUU) NEGATIVE mg/dL NEGATIVE UA BILIRUBIN DIPSTICK (test code = BILU) NEGATIVE mg/dL NEGATIVE UA KETONE DIPSTICK (test code = KETU) NEGATIVE mg/dL NEGATIVE UA SPECIFIC GRAVITY (test code = SGU) 1.010 1.001-1.035 UA BLOOD DIPSTICK (test code = DYAN) Negative mg/dL NEGATIVE UA PH DIPSTICK (test code = MORGAN) 7.5 5.0-8.0 UA PROTEIN DIPSTICK (test code = PROU) 70 (1+) mg/dL NEGATIVE A UA UROBILINIOGEN DIPSTICK (test code = URO) Normal mg/dL NEGATIVE UA NITRITE DIPSTICK (test code = DAYTON) NEGATIVE NEGATIVE UA LEUKOCYTE ESTERASE W REFLEX (test code = LEUUR) NEGATIVE Chela/uL NEGATIVE UA WBC (test code = WBCU) per HPF 0-5 UA RBC (test code = RBCU) per HPF 0-5 UA EPITHELIAL CELLS (test code = EPIU) per HPF Few UA BACTERIA (test code = BACU) per HPF NONE [id number] 20:42:00* Test Item Value Reference Range Interpretation Comments GLUBED (test code = GLUBED) 108 mg/dL 74-106 H Performed by certified ram car operator at [facility] [id number] 20:03:00* Test Item Value Reference Range Interpretation Comments GLUBED (test code = GLUBED) 117 mg/dL 74-106 H Performed by certified ram car operator at [facility] BASIC METABOLIC [id number] 08:08:00* Test Item Value Reference Range Interpretation Comments SODIUM (test code = NA) 135 mmol/L 136-145 L POTASSIUM (test code = K) 3.9 mmol/L 3.5-5.1 N CHLORIDE (test code = CL) 98.0 mmol/L 98-107 N CARBON DIOXIDE (test code = CO2) 26.0 mmol/L 21-32 N ANION GAP (test code = GAP) 14.9 10-20 N GLUCOSE (test code = GLU) 95 mg/dL 74-106 N BLOOD UREA NITROGEN (test code = BUN) 60 mg/dL 7-18 H GLOMERULAR FILTRATION RATE (test code = GFR) 7 mL/min >=60 Estimated GFR by using Modified MDRD formula.Chronic kidney disease is defined as either kidney damageor GFR <60 mL/min/1.73 m2 for >3 months. CREATININE (test code = CREAT) 7.20 mg/dL 0.7-1.3 H BUN/CREATININE RATIO (test code = BUN/CREA) 8.3 10-20 L CALCIUM (test code = CA) 8.7 mg/dL 8.5-10.1 N [id number] 08:05:00* Test Item Value Reference Range Interpretation Comments GLUBED (test code = GLUBED) 79 mg/dL 74-106 N Performed by certified ram car operator at [facility] BASIC METABOLIC [id number] 08:04:00* Test Item Value Reference Range Interpretation Comments SODIUM (test code = NA) 135 mmol/L 136-145 L POTASSIUM (test code = K) 3.9 mmol/L 3.5-5.1 N CHLORIDE (test code = CL) 98.0 mmol/L 98-107 N CARBON DIOXIDE (test code = CO2) mmol/L 21-32 ANION GAP (test code = GAP) 10-20 GLUCOSE (test code = GLU) mg/dL 74-106 BLOOD UREA NITROGEN (test code = BUN) mg/dL 7-18 GLOMERULAR FILTRATION RATE (test code = GFR) mL/min >=60 CREATININE (test code = CREAT) mg/dL 0.7-1.3 BUN/CREATININE RATIO (test code = BUN/CREA) 10-20 CALCIUM (test code = CA) mg/dL 8.5-10.1 CBC W/O [id number] 07:46:00* Test Item Value Reference Range Interpretation Comments WHITE BLOOD CELL (test code = WBC) 11.3 K/mm3 4.5-12.5 N RED BLOOD CELL (test code = RBC) 3.76 mill/mm3 4.0-5.8 L HEMOGLOBIN (test code = HGB) 11.5 gram/dL 13.0-17.5 L HEMATOCRIT (test code = HCT) 35.2 % 42.0-52.0 L MEAN CELL VOLUME (test code = MCV) 93.6 fL 80-98 N MEAN CELL HGB (test code = MCH) 30.6 picogram 27.0-33.0 N MEAN CELL HGB CONCETRATION (test code = MCHC) 32.7 gram/dL 33.0-36. 0 L RED CELL DISTRIBUTION WIDTH (test code = RDW) 13.2 % 11.6-16. 2 N PLATELET COUNT (test code = PLT) 181 K/mm3 150-450 N MEAN PLATELET VOLUME (test code = MPV) 10.2 fL 6.7-11.0 N PROCALCITONIN (PCT)2019-06-16 07:11:00* Test Item Value Reference Range Interpretation Comments PROCALCITONIN (PCT) (test code = PROCAL) 30.99 ng/ml Concentration Interpretation (ng/mL) <0.51 Sepsis is not likely. Local bacterial infection is possible. (LOW RISK for progression to Sepsis) 0.51 - 2.00 Sepsis is possible, but other conditions are known to elevate PCT as well. (MODERATE RISK for progression to Sepsis) > 2.00 Sepsis is likely, unless other causes are known. (HIGH RISK for progression to Severe Sepsis or Septic Shock) 10.00 High likelihood of Severe Sepsis or Septic or higher Shock. *Increased PCT levels may not always be related to systemic bacterial infection.*Low PCT levels do not automatically exclude the presence of bacterial infection.*All results should be interpreted taking into account the patients history. [id number] 09:23:00* Test Item Value Reference Range Interpretation Comments GLUBED (test code = GLUBED) 111 mg/dL 74-106 H Performed by certified ram car operator at [facility] [id number] 20:37:00* Test Item Value Reference Range Interpretation Comments GLUBED (test code = GLUBED) 106 mg/dL 74-106 N Performed by certified ram car operator at [facility] [id number] 17:16:00* Test Item Value Reference Range Interpretation Comments GLUBED (test code = GLUBED) 80 mg/dL 74-106 N Performed by certified ram car operator at [facility] [id number] 08:48:00* Test Item Value Reference Range Interpretation Comments GLUBED (test code = GLUBED) 104 mg/dL 74-106 N Performed by certified ram car operator at [facility] [id number] 08:21:00* Test Item Value Reference Range Interpretation Comments GLUBED (test code = GLUBED) 77 mg/dL 74-106 N Performed by certified ram car operator at [facility] [id number] 08:15:00* Test Item Value Reference Range Interpretation Comments GLUBED (test code = GLUBED) 64 mg/dL 74-106 L Performed by certified ram car operator at [facility] AG HEPAT B [id number] 06:56:00* Test Item Value Reference Range Interpretation Comments AG HEPAT B SURF (test code = HBSAG) Nonreactive Index Nonreactive BASIC METABOLIC [id number] 06:06:00* Test Item Value Reference Range Interpretation Comments SODIUM (test code = NA) 135 mmol/L 136-145 L POTASSIUM (test code = K) 4.8 mmol/L 3.5-5.1 N CHLORIDE (test code = CL) 98.0 mmol/L 98-107 N CARBON DIOXIDE (test code = CO2) 27.0 mmol/L 21-32 N ANION GAP (test code = GAP) 14.8 10-20 N GLUCOSE (test code = GLU) 82 mg/dL 74-106 N BLOOD UREA NITROGEN (test code = BUN) 56 mg/dL 7-18 H RESULT VERIFIED BY REPEAT ANALYSIS GLOMERULAR FILTRATION RATE (test code = GFR) 6 mL/min >=60 Estimated GFR by using Modified MDRD formula.Chronic kidney disease is defined as either kidney damageor GFR <60 mL/min/1.73 m2 for >3 months. CREATININE (test code = CREAT) 8.10 mg/dL 0.7-1.3 H BUN/CREATININE RATIO (test code = BUN/CREA) 6.9 10-20 L CALCIUM (test code = CA) 8.1 mg/dL 8.5-10.1 L CBC W/O [id number] 05:55:00* Test Item Value Reference Range Interpretation Comments WHITE BLOOD CELL (test code = WBC) 9.7 K/mm3 4.5-12.5 N RED BLOOD CELL (test code = RBC) 3.72 mill/mm3 4.0-5.8 L HEMOGLOBIN (test code = HGB) 11.4 gram/dL 13.0-17.5 L HEMATOCRIT (test code = HCT) 36.6 % 42.0-52.0 L MEAN CELL VOLUME (test code = MCV) 98.4 fL 80-98 H MEAN CELL HGB (test code = MCH) 30.6 picogram 27.0-33.0 N MEAN CELL HGB CONCETRATION (test code = MCHC) 31.1 gram/dL 33.0-36. 0 L RED CELL DISTRIBUTION WIDTH (test code = RDW) 13.2 % 11.6-16. 2 N PLATELET COUNT (test code = PLT) 124 K/mm3 150-450 L MEAN PLATELET VOLUME (test code = MPV) 10.4 fL 6.7-11.0 N BASIC METABOLIC [id number] 05:45:00* Test Item Value Reference Range Interpretation Comments SODIUM (test code = NA) 135 mmol/L 136-145 L POTASSIUM (test code = K) 4.8 mmol/L 3.5-5.1 N CHLORIDE (test code = CL) 98.0 mmol/L 98-107 N CARBON DIOXIDE (test code = CO2) mmol/L 21-32 ANION GAP (test code = GAP) 10-20 GLUCOSE (test code = GLU) mg/dL 74-106 BLOOD UREA NITROGEN (test code = BUN) mg/dL 7-18 GLOMERULAR FILTRATION RATE (test code = GFR) mL/min >=60 CREATININE (test code = CREAT) mg/dL 0.7-1.3 BUN/CREATININE RATIO (test code = BUN/CREA) 10-20 CALCIUM (test code = CA) mg/dL 8.5-10.1 URINALYSIS [id number] 03:29:00* Test Item Value Reference Range Interpretation Comments UA COLOR (test code = COLU) YELLOW YELLOW UA APPEARANCE (test code = APPU) CLEAR CLEAR UA GLUCOSE DIPSTICK (test code = DGLUU) NEGATIVE mg/dL NEGATIVE UA BILIRUBIN DIPSTICK (test code = BILU) NEGATIVE mg/dL NEGATIVE UA KETONE DIPSTICK (test code = KETU) NEGATIVE mg/dL NEGATIVE UA SPECIFIC GRAVITY (test code = SGU) 1.015 1.001-1.035 UA BLOOD DIPSTICK (test code = DYAN) 0.06 mg/dL (1+) mg/dL NEGATIVE A UA PH DIPSTICK (test code = MORGAN) 6.0 5.0-8.0 UA PROTEIN DIPSTICK (test code = PROU) 70 (1+) mg/dL NEGATIVE A UA UROBILINIOGEN DIPSTICK (test code = URO) Normal mg/dL NEGATIVE UA NITRITE DIPSTICK (test code = DAYTON) NEGATIVE NEGATIVE UA LEUKOCYTE ESTERASE W REFLEX (test code = LEUUR) NEGATIVE Chela/uL NEGATIVE UA WBC (test code = WBCU) 0-5 per HPF 0-5 UA RBC (test code = RBCU) 0-2 #/HPF 0-5 UA EPITHELIAL CELLS (test code = EPIU) None seen per HPF FEW UA BACTERIA (test code = BACU) NONE SEEN #/HPF NONE UA MUCUS (test code = MUCU) FEW #/LPF FEW Urine Source? Clean Catch- US ABDOMEN [id number] 17:26:00 Name: TERRELL FELIZ [facility] : 1945 Age/S: 74 / M [address] Unit #: [id number] Loc: [place] [address] Phys: Rashawn Damon MD Acct: [id number] Dis Date: Status: ADM IN PHONE #: [phone] Exam Date: 06/13/2019 1716 FAX #: [phone] Reason: vomiting, elevated bilirubin EXAMS: CPT CODE: [id number] US ABDOMEN LTD [address]4065 EXAM: Ultrasound abdomen, limited; INFORMATION: Vomiting; elevated bilirubin; FINDINGS: The liver is of normal size and shape. It shows homogeneous echotexture; no focal lesions. The patient is status post cholecystectomy; no dilatation of intra or extrahepatic bile ducts. The pancreas is unremarkable. No ascites. The right kidney is of normal size and shape. It measures 10.7 x 4.6 x 5 cm. No hydronephrosis or stones. It show s increased parenchymal echogenicity. There are several small cysts in the right kidney measuring between 1.3 and 2 cm. Imaged portions of the IVC and abdominal aorta are unremarkable. IMPRESSION: 1. No biliary dilatation. 2. Several small right renal cysts; incre ased parenchymal echogenicity suggests diffuse parenchymal disease. Location code: [facility] at 1726 Reported and signed by: Eladio Hernandez M.D. CC: Jordan Alex MD; Rashawn Damon MD Technologist: Ranjit Jung Trnohb Date/Time: 020 (172) t.SDR.GRW Orig Print D/T: S: 06/13/2019 (1728) Probe: PAGE 1 Signed Report LACTIC [id number] 16:11:00* Test Item Value Reference Range Interpretation Comments LACTIC ACID (test code = LACT) 0.9 mmol/L 0.4-1.9 N B-TYPE NATRIURETIC [id number] 14:52:00* Test Item Value Reference Range Interpretation Comments B-TYPE NATRIURETIC PEPTIDE (test code = BNP) 420.63 pgram/mL 0-100 H - XR CHEST 1 [id number] 14:52:00 FAX: Jordan Hansen MD [phone] [place]: B St: REG FAX: Rashawn Damon MD Name: TERRELL FELIZ [facility] : 1945 Age/S: 74/M [address] Unit #: [id number] Loc: [place] [address] Phys: Rashawn Damon MD Acct: [id number] Dis Date: Status: REG ER PHONE #: [phone] Exam Date: 06/13/2019 1425 FAX #: [phone] Reason: CODE SEPSIS EXAMS: CPT CODE: [id number] XR CHEST 1 V 97319 EXAM: Chest x-ray, one view; INFORMATION: Code sepsis; FINDINGS: Right basilar densities are consistent with atelectatic changes; no obvious infiltrate; no effusions; no pneumothorax. The heart is moderately enlarged. IMPRESSION: 1. Moderate cardiomegaly. 2. Right basilar atelectatic changes. 3. No acute abnormalities. Location code: [facility] Electronically Signed by Anila Hernandez on at 1452 Reported and signed by: Jack Hernandez M.D. CC: Jordan Alex MD; Rashawn Damon MD Technologist: Cira Avila RT(R) Trnscrd Date/Time/By: 06/13/2019 (7649) : By: Angel.GRW Orig Print D/T: S: 06/13/2019 (7801) PAGE 1 Signed Report PROCALCITONIN (PCT)2019-06-13 14:20:00* Test Item Value Reference Range Interpretation Comments PROCALCITONIN (PCT) (test code = PROCAL) 19.16 ng/ml Concentration Interpretation (ng/mL) <0.51 Sepsis is not likely. Local bacterial infection is possible. (LOW RISK for progression to Sepsis) 0.51 - 2.00 Sepsis is possible, but other conditions are known to elevate PCT as well. (MODERATE RISK for progression to Sepsis) > 2.00 Sepsis is likely, unless other causes are known. (HIGH RISK for progression to Severe Sepsis or Septic Shock) 10.00 High likelihood of Severe Sepsis or Septic or higher Shock. *Increased PCT levels may not always be related to systemic bacterial infection.*Low PCT levels do not automatically exclude the presence of bacterial infection.*All results should be interpreted taking into account the patients history. CBC W/MANUAL [id number] 14:16:00* Test Item Value Reference Range Interpretation Comments WHITE BLOOD CELL (test code = WBC) 10.4 K/mm3 4.5-12.5 N RED BLOOD CELL (test code = RBC) 3.92 mill/mm3 4.0-5.8 L HEMOGLOBIN (test code = HGB) 12.2 gram/dL 13.0-17.5 L HEMATOCRIT (test code = HCT) 38.6 % 42.0-52.0 L MEAN CELL VOLUME (test code = MCV) 98.5 fL 80-98 H MEAN CELL HGB (test code = MCH) 31.1 picogram 27.0-33.0 N MEAN CELL HGB CONCETRATION (test code = MCHC) 31.6 gram/dL 33.0-36. 0 L RED CELL DISTRIBUTION WIDTH (test code = RDW) 13.2 % 11.6-16. 2 N RED CELL DISTRIBUTION WIDTH SD (test code = RDW-SD) 47.4 fL 37 .0-51.0 N PLATELET COUNT (test code = PLT) 124 K/mm3 150-450 L MEAN PLATELET VOLUME (test code = MPV) 10.1 fL 6.7-11.0 N IMMATURE GRANULOCYTE % (test code = IG%) 4.3 % 0.0-5.0 N NUCLEATED RBC % (test code = NRBC%) 0.0 % 0-0 N NEUTROPHIL # (test code = NT#) 8.58 K/mm3 1.8-7.7 H IMMATURE GRANULOCYTE # (test code = IG#) 0.45 x10 3/uL 0-0.03 H LYMPHOCYTE # (test code = LY#) 0.53 K/mm3 1.0-5.0 L MONOCYTE # (test code = MO#) 0.81 K/mm3 0-0.8 H EOSINOPHIL # (test code = EO#) 0.02 K/mm3 0.0-0.5 N BASOPHIL # (test code = BA#) 0.05 K/mm3 0.0-0.2 N NUCLEATED RBC # (test code = NRBC#) 0.00 K/mm3 0.0-0.1 N MANUAL DIFF REQUIRED (test code = MDIFF) YES STAIN ACCEPTABILITY (test code = STN ACCEPTABLE) STAIN ACCEPTABLE TOTAL CELLS COUNTED (test code = TCC) 114 #CELLS SEGMENTED NEUTROPHILS (test code = SEG) 86.8 % 39-69 H BAND NEUTROPHIL (test code = BAND) 0.9 % 0-10 N LYMPHOCYTE (test code = LYMPH) 6.1 % 25-55 L REACTIVE LYMPH (test code = RELYMPH) 0 % MONOCYTE (test code = MON) 4.4 % 0-10 N EOSINOPHIL (test code = EOS) 0.9 % 0.0-5.0 N BASOPHIL (test code = BASO) 0 % 0-1.0 N METAMYELOCYTE (test code = META) 0.9 % 0-0 H MYELOCYTE (test code = MYELO) 0 % 0.0-0.0 N PROMYELOCYTE (test code = PROM) 0 % 0-0 N MORPHOLOGY COMMENT (test code = MOC) NORMAL PLATELET ESTIMATE (test code = PLTEST) DECREASED PLATELET MORPHOLOGY (test code = PLTMORPH) NORMAL IMMATURE FORMS (test code = IMMAT) 0 % 0-0 N BASIC METABOLIC [id number] 14:13:00* Test Item Value Reference Range Interpretation Comments SODIUM (test code = NA) 134 mmol/L 136-145 L POTASSIUM (test code = K) 4.6 mmol/L 3.5-5.1 N CHLORIDE (test code = CL) 95.0 mmol/L 98-107 L CARBON DIOXIDE (test code = CO2) 29.0 mmol/L 21-32 N ANION GAP (test code = GAP) 14.6 10-20 N GLUCOSE (test code = GLU) 101 mg/dL 74-106 N BLOOD UREA NITROGEN (test code = BUN) 39 mg/dL 7-18 H GLOMERULAR FILTRATION RATE (test code = GFR) 7 mL/min >=60 Estimated GFR by using Modified MDRD formula.Chronic kidney disease is defined as either kidney damageor GFR <60 mL/min/1.73 m2 for >3 months. CREATININE (test code = CREAT) 7.20 mg/dL 0.7-1.3 H BUN/CREATININE RATIO (test code = BUN/CREA) 5.4 10-20 L CALCIUM (test code = CA) 8.8 mg/dL 8.5-10.1 N HEPATIC FUNCTION [id number] 14:13:00* Test Item Value Reference Range Interpretation Comments TOTAL PROTEIN (test code = PROT) 6.8 gram/dL 6.4-8.2 N ALBUMIN (test code = ALB) 2.6 g/dL 3.4-5.0 L GLOBULIN (test code = GLOB) 4.2 gram/dL 2.7-4.2 N ALBUMIN/GLOBULIN RATIO (test code = A/G) 0.6 0.75-1.50 L BILIRUBIN TOTAL (test code = BILT) 1.60 mg/dL 0.0-1.0 H BILIRUBIN DIRECT (test code = BILD) 0.83 mg/dL 0.0-0.20 H SGOT/AST (test code = AST) 23 IUnit/L 15-37 N SGPT/ALT (test code = ALT) 15 IUnit/L 12-78 N ALKALINE PHOSPHATASE TOTAL (test code = ALKP) 106 IUnit/L 45-117 N Note change in reference range due to change in reagent. [id number] 14:13:00* Test Item Value Reference Range Interpretation Comments LIPASE (test code = LIP) 15 U/L 73.0-393.0 L [id number] 14:13:00* Test Item Value Reference Range Interpretation Comments MAGNESIUM (test code = MAG) 1.8 mg/dL 1.8-2.4 N [id number] 14:13:00* Test Item Value Reference Range Interpretation Comments TROPONIN-I (test code = TROPI) <0.015 ng/mL 0-0.045 N [id number] 14:13:00* Test Item Value Reference Range Interpretation Comments SALICYLATE (test code = SHAYE) 3.0 mg/dL 2.8-20.0 N LACTIC [id number] 14:05:00* Test Item Value Reference Range Interpretation Comments LACTIC ACID (test code = LACT) 2.2 mmol/L 0.4-1.9 Results called to [id number] by [email or web address] 06/13/19 1405Critical results verified and read back by Nurse? YES PROTHROMBIN [id number] 14:03:00* Test Item Value Reference Range Interpretation Comments PROTHROMBIN TIME PATIENT (test code = PTP) 12.1 seconds 9.0-14.0 N INTERNATIONAL NORMAL RATIO (test code = INR) 1.0 0.8-1.2 N The therapeutic range for oral anticoagulant therapy formost indications is an international normalized ratio (INR)of between 2.0 and 3.0. The recommended therapeutic INRrange for various clinical situations is listed below: Clinical Situation INR range Pulmonary e mbolism treatment (2.0-3.0)Venous thrombosis treatmentVenous thrombosis prophylaxis (high risk surgery)Prevention of systemic embolism from: Acute myocardial infarction Valvular heart disease Atrial fibrillation Mechanical prosthetic heart valves (2.5-3.5) IS PATIENT ON ANTICOAGULANTS? NTHROMBOPLASTIN TIME [id number] 14:03:00* Test Item Value Reference Range Interpretation Comments THROMBOPLASTIN TIME PARTIAL (test code = PTT) 27.8 seconds 25.0-36. 5 N IS PATIENT ON ANTICOAGULANTS? NBASIC METABOLIC [id number] 13:59:00* Test Item Value Reference Range Interpretation Comments SODIUM (test code = NA) 134 mmol/L 136-145 L POTASSIUM (test code = K) 4.6 mmol/L 3.5-5.1 N CHLORIDE (test code = CL) 95.0 mmol/L 98-107 L CARBON DIOXIDE (test code = CO2) mmol/L 21-32 ANION GAP (test code = GAP) 10-20 GLUCOSE (test code = GLU) mg/dL 74-106 BLOOD UREA NITROGEN (test code = BUN) mg/dL 7-18 GLOMERULAR FILTRATION RATE (test code = GFR) mL/min >=60 CREATININE (test code = CREAT) mg/dL 0.7-1.3 BUN/CREATININE RATIO (test code = BUN/CREA) 10-20 CALCIUM (test code = CA) mg/dL 8.5-10.1 HEPATIC FUNCTION [id number] 13:59:00* Test Item Value Reference Range Interpretation Comments TOTAL PROTEIN (test code = PROT) gram/dL 6.4-8.2 ALBUMIN (test code = ALB) g/dL 3.4-5.0 GLOBULIN (test code = GLOB) gram/dL 2.7-4.2 ALBUMIN/GLOBULIN RATIO (test code = A/G) 0.75-1.50 BILIRUBIN TOTAL (test code = BILT) mg/dL 0.0-1.0 BILIRUBIN DIRECT (test code = BILD) mg/dL 0.0-0.20 SGOT/AST (test code = AST) IUnit/L 15-37 SGPT/ALT (test code = ALT) IUnit/L 12-78 ALKALINE PHOSPHATASE TOTAL (test code = ALKP) IUnit/L 45-117 [id number] 13:59:00* Test Item Value Reference Range Interpretation Comments LIPASE (test code = LIP) U/L 73.0-393.0 [id number] 13:59:00* Test Item Value Reference Range Interpretation Comments MAGNESIUM (test code = MAG) mg/dL 1.8-2.4 [id number] 13:59:00* Test Item Value Reference Range Interpretation Comments TROPONIN-I (test code = TROPI) ng/mL 0-0.045 [id number] 13:59:00* Test Item Value Reference Range Interpretation Comments SALICYLATE (test code = SHAYE) mg/dL 2.8-20.0 CBC W/MANUAL [id number] 13:50:00* Test Item Value Reference Range Interpretation Comments WHITE BLOOD CELL (test code = WBC) 10.4 K/mm3 4.5-12.5 N RED BLOOD CELL (test code = RBC) 3.92 mill/mm3 4.0-5.8 L HEMOGLOBIN (test code = HGB) 12.2 gram/dL 13.0-17.5 L HEMATOCRIT (test code = HCT) 38.6 % 42.0-52.0 L MEAN CELL VOLUME (test code = MCV) 98.5 fL 80-98 H MEAN CELL HGB (test code = MCH) 31.1 picogram 27.0-33.0 N MEAN CELL HGB CONCETRATION (test code = MCHC) 31.6 gram/dL 33.0-36. 0 L RED CELL DISTRIBUTION WIDTH (test code = RDW) 13.2 % 11.6-16. 2 N RED CELL DISTRIBUTION WIDTH SD (test code = RDW-SD) 47.4 fL 37 .0-51.0 N PLATELET COUNT (test code = PLT) 124 K/mm3 150-450 L MEAN PLATELET VOLUME (test code = MPV) 10.1 fL 6.7-11.0 N IMMATURE GRANULOCYTE % (test code = IG%) 4.3 % 0.0-5.0 N NUCLEATED RBC % (test code = NRBC%) 0.0 % 0-0 N NEUTROPHIL # (test code = NT#) 8.58 K/mm3 1.8-7.7 H IMMATURE GRANULOCYTE # (test code = IG#) 0.45 x10 3/uL 0-0.03 H LYMPHOCYTE # (test code = LY#) 0.53 K/mm3 1.0-5.0 L MONOCYTE # (test code = MO#) 0.81 K/mm3 0-0.8 H EOSINOPHIL # (test code = EO#) 0.02 K/mm3 0.0-0.5 N BASOPHIL # (test code = BA#) 0.05 K/mm3 0.0-0.2 N NUCLEATED RBC # (test code = NRBC#) 0.00 K/mm3 0.0-0.1 N MANUAL DIFF REQUIRED (test code = MDIFF) YES STAIN ACCEPTABILITY (test code = STN ACCEPTABLE) TOTAL CELLS COUNTED (test code = TCC) #CELLS SEGMENTED NEUTROPHILS (test code = SEG) % 39-69 LYMPHOCYTE (test code = LYMPH) % 25-55 MONOCYTE (test code = MON) % 0-10 EOSINOPHIL (test code = EOS) % 0.0-5.0 CABOT RINGS (test code = CAB) MORPHOLOGY COMMENT (test code = MOC) PLATELET ESTIMATE (test code = PLTEST) PLATELET MORPHOLOGY (test code = PLTMORPH) CBC W/MANUAL [id number] 13:50:00* Test Item Value Reference Range Interpretation Comments WHITE BLOOD CELL (test code = WBC) 10.4 K/mm3 4.5-12.5 N RED BLOOD CELL (test code = RBC) 3.92 mill/mm3 4.0-5.8 L HEMOGLOBIN (test code = HGB) 12.2 gram/dL 13.0-17.5 L HEMATOCRIT (test code = HCT) 38.6 % 42.0-52.0 L MEAN CELL VOLUME (test code = MCV) 98.5 fL 80-98 H MEAN CELL HGB (test code = MCH) 31.1 picogram 27.0-33.0 N MEAN CELL HGB CONCETRATION (test code = MCHC) 31.6 gram/dL 33.0-36. 0 L RED CELL DISTRIBUTION WIDTH (test code = RDW) 13.2 % 11.6-16. 2 N RED CELL DISTRIBUTION WIDTH SD (test code = RDW-SD) 47.4 fL 37 .0-51.0 N PLATELET COUNT (test code = PLT) 124 K/mm3 150-450 L MEAN PLATELET VOLUME (test code = MPV) 10.1 fL 6.7-11.0 N IMMATURE GRANULOCYTE % (test code = IG%) 4.3 % 0.0-5.0 N NUCLEATED RBC % (test code = NRBC%) 0.0 % 0-0 N NEUTROPHIL # (test code = NT#) 8.58 K/mm3 1.8-7.7 H IMMATURE GRANULOCYTE # (test code = IG#) 0.45 x10 3/uL 0-0.03 H LYMPHOCYTE # (test code = LY#) 0.53 K/mm3 1.0-5.0 L MONOCYTE # (test code = MO#) 0.81 K/mm3 0-0.8 H EOSINOPHIL # (test code = EO#) 0.02 K/mm3 0.0-0.5 N BASOPHIL # (test code = BA#) 0.05 K/mm3 0.0-0.2 N NUCLEATED RBC # (test code = NRBC#) 0.00 K/mm3 0.0-0.1 N MANUAL DIFF REQUIRED (test code = MDIFF) YES STAIN ACCEPTABILITY (test code = STN ACCEPTABLE) TOTAL CELLS COUNTED (test code = TCC) #CELLS SEGMENTED NEUTROPHILS (test code = SEG) % 39-69 LYMPHOCYTE (test code = LYMPH) % 25-55 MONOCYTE (test code = MON) % 0-10 EOSINOPHIL (test code = EOS) % 0.0-5.0 MORPHOLOGY COMMENT (test code = MOC) PLATELET ESTIMATE (test code = PLTEST) PLATELET MORPHOLOGY (test code = PLTMORPH) CBC W/MANUAL [id number] 13:50:00* Test Item Value Reference Range Interpretation Comments WHITE BLOOD CELL (test code = WBC) 10.4 K/mm3 4.5-12.5 N RED BLOOD CELL (test code = RBC) 3.92 mill/mm3 4.0-5.8 L HEMOGLOBIN (test code = HGB) 12.2 gram/dL 13.0-17.5 L HEMATOCRIT (test code = HCT) 38.6 % 42.0-52.0 L MEAN CELL VOLUME (test code = MCV) 98.5 fL 80-98 H MEAN CELL HGB (test code = MCH) 31.1 picogram 27.0-33.0 N MEAN CELL HGB CONCETRATION (test code = MCHC) 31.6 gram/dL 33.0-36. 0 L RED CELL DISTRIBUTION WIDTH (test code = RDW) 13.2 % 11.6-16. 2 N RED CELL DISTRIBUTION WIDTH SD (test code = RDW-SD) 47.4 fL 37 .0-51.0 N PLATELET COUNT (test code = PLT) 124 K/mm3 150-450 L MEAN PLATELET VOLUME (test code = MPV) 10.1 fL 6.7-11.0 N IMMATURE GRANULOCYTE % (test code = IG%) 4.3 % 0.0-5.0 N NUCLEATED RBC % (test code = NRBC%) 0.0 % 0-0 N NEUTROPHIL # (test code = NT#) 8.58 K/mm3 1.8-7.7 H IMMATURE GRANULOCYTE # (test code = IG#) 0.45 x10 3/uL 0-0.03 H LYMPHOCYTE # (test code = LY#) 0.53 K/mm3 1.0-5.0 L MONOCYTE # (test code = MO#) 0.81 K/mm3 0-0.8 H EOSINOPHIL # (test code = EO#) 0.02 K/mm3 0.0-0.5 N BASOPHIL # (test code = BA#) 0.05 K/mm3 0.0-0.2 N NUCLEATED RBC # (test code = NRBC#) 0.00 K/mm3 0.0-0.1 N MANUAL DIFF REQUIRED (test code = MDIFF) YES STAIN ACCEPTABILITY (test code = STN ACCEPTABLE) TOTAL CELLS COUNTED (test code = TCC) #CELLS SEGMENTED NEUTROPHILS (test code = SEG) % 39-69 LYMPHOCYTE (test code = LYMPH) % 25-55 MONOCYTE (test code = MON) % 0-10 MORPHOLOGY COMMENT (test code = MOC) PLATELET ESTIMATE (test code = PLTEST) PLATELET MORPHOLOGY (test code = PLTMORPH) CBC W/MANUAL [id number] 13:49:00* Test Item Value Reference Range Interpretation Comments WHITE BLOOD CELL (test code = WBC) 10.4 K/mm3 4.5-12.5 N RED BLOOD CELL (test code = RBC) 3.92 mill/mm3 4.0-5.8 L HEMOGLOBIN (test code = HGB) 12.2 gram/dL 13.0-17.5 L HEMATOCRIT (test code = HCT) 38.6 % 42.0-52.0 L MEAN CELL VOLUME (test code = MCV) 98.5 fL 80-98 H MEAN CELL HGB (test code = MCH) 31.1 picogram 27.0-33.0 N MEAN CELL HGB CONCETRATION (test code = MCHC) 31.6 gram/dL 33.0-36. 0 L RED CELL DISTRIBUTION WIDTH (test code = RDW) 13.2 % 11.6-16. 2 N RED CELL DISTRIBUTION WIDTH SD (test code = RDW-SD) 47.4 fL 37 .0-51.0 N PLATELET COUNT (test code = PLT) 124 K/mm3 150-450 L MEAN PLATELET VOLUME (test code = MPV) 10.1 fL 6.7-11.0 N IMMATURE GRANULOCYTE % (test code = IG%) 4.3 % 0.0-5.0 N NUCLEATED RBC % (test code = NRBC%) 0.0 % 0-0 N NEUTROPHIL # (test code = NT#) 8.58 K/mm3 1.8-7.7 H IMMATURE GRANULOCYTE # (test code = IG#) 0.45 x10 3/uL 0-0.03 H LYMPHOCYTE # (test code = LY#) 0.53 K/mm3 1.0-5.0 L MONOCYTE # (test code = MO#) 0.81 K/mm3 0-0.8 H EOSINOPHIL # (test code = EO#) 0.02 K/mm3 0.0-0.5 N BASOPHIL # (test code = BA#) 0.05 K/mm3 0.0-0.2 N NUCLEATED RBC # (test code = NRBC#) 0.00 K/mm3 0.0-0.1 N MANUAL DIFF REQUIRED (test code = MDIFF) YES STAIN ACCEPTABILITY (test code = STN ACCEPTABLE) TOTAL CELLS COUNTED (test code = TCC) #CELLS SEGMENTED NEUTROPHILS (test code = SEG) % 39-69 LYMPHOCYTE (test code = LYMPH) % 25-55 MONOCYTE (test code = MON) % 0-10 EOSINOPHIL (test code = EOS) % 0.0-5.0 CABOT RINGS (test code = CAB) MORPHOLOGY COMMENT (test code = MOC) PLATELET ESTIMATE (test code = PLTEST) PLATELET MORPHOLOGY (test code = PLTMORPH) CBC W/MANUAL [id number] 13:49:00* Test Item Value Reference Range Interpretation Comments WHITE BLOOD CELL (test code = WBC) 10.4 K/mm3 4.5-12.5 N RED BLOOD CELL (test code = RBC) 3.92 mill/mm3 4.0-5.8 L HEMOGLOBIN (test code = HGB) 12.2 gram/dL 13.0-17.5 L HEMATOCRIT (test code = HCT) 38.6 % 42.0-52.0 L MEAN CELL VOLUME (test code = MCV) 98.5 fL 80-98 H MEAN CELL HGB (test code = MCH) 31.1 picogram 27.0-33.0 N MEAN CELL HGB CONCETRATION (test code = MCHC) 31.6 gram/dL 33.0-36. 0 L RED CELL DISTRIBUTION WIDTH (test code = RDW) 13.2 % 11.6-16. 2 N RED CELL DISTRIBUTION WIDTH SD (test code = RDW-SD) 47.4 fL 37 .0-51.0 N PLATELET COUNT (test code = PLT) 124 K/mm3 150-450 L MEAN PLATELET VOLUME (test code = MPV) 10.1 fL 6.7-11.0 N IMMATURE GRANULOCYTE % (test code = IG%) 4.3 % 0.0-5.0 N NUCLEATED RBC % (test code = NRBC%) 0.0 % 0-0 N NEUTROPHIL # (test code = NT#) 8.58 K/mm3 1.8-7.7 H IMMATURE GRANULOCYTE # (test code = IG#) 0.45 x10 3/uL 0-0.03 H LYMPHOCYTE # (test code = LY#) 0.53 K/mm3 1.0-5.0 L MONOCYTE # (test code = MO#) 0.81 K/mm3 0-0.8 H EOSINOPHIL # (test code = EO#) 0.02 K/mm3 0.0-0.5 N BASOPHIL # (test code = BA#) 0.05 K/mm3 0.0-0.2 N NUCLEATED RBC # (test code = NRBC#) 0.00 K/mm3 0.0-0.1 N MANUAL DIFF REQUIRED (test code = MDIFF) YES STAIN ACCEPTABILITY (test code = STN ACCEPTABLE) TOTAL CELLS COUNTED (test code = TCC) #CELLS SEGMENTED NEUTROPHILS (test code = SEG) % 39-69 LYMPHOCYTE (test code = LYMPH) % 25-55 MONOCYTE (test code = MON) % 0-10 EOSINOPHIL (test code = EOS) % 0.0-5.0 CABOT RINGS (test code = CAB) MORPHOLOGY COMMENT (test code = MOC) PLATELET ESTIMATE (test code = PLTEST) PLATELET MORPHOLOGY (test code = PLTMORPH) Urine [id number] 20:19:00* Test Item Value Reference Range Interpretation Comments Urine WBC (test code = 5821-4) 6-10 0-5 [facility] [id number] 20:19:00* Test Item Value Reference Range Interpretation Comments Urine RBC (test code = 33941-4) 0-5 0-5 [facility] [id number] 20:19:00* Test Item Value Reference Range Interpretation Comments Urine Bacteria (test code = 15954-9) PRESENT NONE [facility] Epithelial [id number] 20:19:00 * Test Item Value Reference Range Interpretation Comments Urine Epithelial Cells (test code = 20199-9) FEW NONE [facility] [id number] 19:54:00* Test Item Value Reference Range Interpretation Comments Urine Color (test code = 5778-6) YELLOW YELLOW [facility] [id number] 19:54:00* Test Item Value Reference Range Interpretation Comments Urine Clarity (test code = 76511-8) CLEAR CLEAR [facility] Specific [id number] 19:54:00 * Test Item Value Reference Range Interpretation Comments Urine Specific [place] (test code = 5811-5) 1.015 1.010-1.02 5 [facility] [id number] 19:54:00* Test Item Value Reference Range Interpretation Comments Urine pH (test code = 59216-2) 7.5 5-7 [facility] Leukocyte [id number] 19:54:00* Test Item Value Reference Range Interpretation Comments Urine Leukocyte Esterase (test code = 5799-2) NEGATIVE NEGATIVE [facility] [id number] 19:54:00* Test Item Value Reference Range Interpretation Comments Urine Nitrite (test code = 04664-5) NEGATIVE NEGATIVE [facility] [id number] 19:54:00* Test Item Value Reference Range Interpretation Comments Urine Protein (test code = 5804-0) NEGATIVE NEGATIVE [facility] Glucose (UA)2019-06-10 19:54:00* Test Item Value Reference Range Interpretation Comments Urine Glucose (UA) (test code = 2349-9) NEGATIVE NEGATIVE [facility] [id number] 19:54:00* Test Item Value Reference Range Interpretation Comments Urine Ketones (test code = 86369-6) NEGATIVE NEGATIVE [facility] [id number] 19:54:00* Test Item Value Reference Range Interpretation Comments Urine Urobilinogen (test code = 75479-8) 0.2 0.2-1 [facility] [id number] 19:54:00* Test Item Value Reference Range Interpretation Comments Urine Bilirubin (test code = 1978-6) NEGATIVE NEGATIVE [facility] [id number] 19:54:00* Test Item Value Reference Range Interpretation Comments Urine Blood (test code = 54578-5) NEGATIVE NEGATIVE [facility] [address] [address] Patient Name: TERRELL FELIZ MR #: [id number] : 1945 Age/Sex: 72/M Req #: [id number] Adm Physician: Ordered by: MARISOL SHULTZ MD Report #: [id number] Location: ER Room/Bed: Procedure: [id number] DX/CHEST SINGLE (PORTABLE) Exam Date: 06/16/17 Exam Time: 1115 REPORT STATUS: Signed EXAMINATION: CHEST SINGLE (PORTABLE) INDICATION: COMPARISON: Chest radiograph 09/07/2016 FINDINGS: AP view TUBES and LINES: None. LUNGS: Lungs are well inflated. Lungs ar e clear. There is no evidence of pneumonia or pulmonary edema. PLEURA: Persistent right basilar pleural thickening/scarring with adjacent prior rib fractures. No pleural effusion or pneumothorax. HEART AND MEDIASTINUM: The cardiomediastinal silhouette is unremarkable. BONES AND SOFT TISSUES: No acute osseous lesion. Soft tissues are unremarkable. UPPER ABDOMEN: No free air under the diaphragm. IMPRESSION: 1. Persistent right bas ilar pleural thickening/scarring with adjacent prior rib fractures. 2. No f ocal consolidations. Signed by: DR. Cristopher Lo MD on 06/16/2017 12:16 P M Dictated By: CRISTOPHER LO MD 1216 Transcribed By: JERZY on 06/16/17 1216 COPY TO: MARISOL NEAL MD CT ABDOMEN/PELVIS W [facility] [address] [place] [address] Patient Name: TERRELL FELIZ MR #: [id number] : 1945 Age/Sex: 72/M Req #: [id number] Adm Physician: JIM KAUR MD Ordered by: NELIA BISHOP MD Report #: [id number] Location: [facility] Room/Bed: [address] [address] Procedure: [id number] CT/CT A BDOMEN/PELVIS W Exam Date: 05/27/17 Exam Time: 1650 REPORT STATUS: Signed PROCEDURE: CT ABDOMEN AND PELVIS WITH CONTRAST TECHNIQUE: The abdomen and pelvis were scanned utilizing a multidetector helical scanner from the diaphragm to the lesser trochanter after the IV a dministration of 100 cc of Isovue 370 and the oral administration of water. Coronal and sagittal multiplanar reformations were obtained. COMPARISON: P [facility], MRI, MRI MRCP WO, 10/16/2013, 10:41. CT, CT ABDOMEN/P DUTCH WO, 10/14/2013, 4:29. INDICATIONS: ABDOMINAL PAIN FINDINGS: LOWER THORAX: Bilateral basal mostly dependent atelectatic changes. Mild car diomegaly. Atherosclerotic calcification of the coronary arteries. Chronic un united fracture of the right seventh rib HEPATOBILIARY: Normal hepatic siz e and contour. Decreased attenuation of the liver compared to the spleen, con sistent with steatosis. No focal lesions. Mild central intrahepatic biliary d uctal dilation, and mild dilation of the common bile duct, which measures 9 m m at the cristofer hepatis, decreased from previous.. No radiopaque intraluminal filling defects. Cholecystectomy clips SPLEEN: 7 mm hypodense lesion in the inferior tip of the spleen, which is to small to characterize. Mild splenome veronika, measuring 13.6 cm in AP diameter PANCREAS: No focal masses or ductal dilatation. ADRENALS: No adrenal nodules. KIDNEYS/URETERS: No renal or u reteral calculi. No hydronephrosis, hydroureter, or evidence of obstruction. Stable 3-4 mm calcific density likely located in the posterior bladder lume n just past the left UVJ (series 2, image 80). Stable multiple bilateral renal and peripelvic cysts. No solid enhancing lesions. PELVIC ORGANS/BLADDER: M ild circumferential bladder wall thickening, which is partly due to under dis tention. The prostate is enlarged. PERITONEUM / RETROPERITONEUM: No free a ir or fluid. LYMPH NODES: No lymphadenopathy. VESSELS: Atherosclerotic calci fication of the abdominal aorta and iliac vessels. GI TRACT: No bowel d ilation or evidence of obstruction. No pericolonic inflammatory changes. Appe ndix is well identified and normal in caliber. BONES AND SOFT TISSUES: No aggressive lytic or sclerotic lesions. Soft tissues are unremarkable. IMPRESSION: 1. no acute abdominopelvic abnormalities. 2. Mild central intrahepatic biliary ductal dilation and mild dilation of the common bile miguel a t, which is decreased from prior exam and likely reflects post cholecystectom y status. 3. Stable 3-4 mm calcific density likely located in the posterior bladder lumen just past the left UVJ, likely representing a bladder calculus . No ureteral calculi, hydronephrosis, or obstruction. 4. Hepatic steatosis. N o focal lesions. Ld Reyna M.D. Dictated by: Ld Reyna M.D. on 05/27/2017 at 17:37 Electronically approved by: Ld Reyna M.D. on 05/27/2017 at 17:37 Dictated By: LD GARCIA MD 36 Transcri bed By: SABAS on 05/27/171736 COPY TO: NELIA BISHOP MD [facility] (PORTABLE) [address] [address] Patient Name: TERRELL FELIZ MR #: [id number] : 1945 Age/Sex: 72/M Req #: [id number] Adm Physician: Ordered by: NELIA BISHPO MD Report #: [id number] Location: Room/Bed: Procedure: [id number] DX/CHEST SINGLE (PORTABLE) Exam Da te: 05/27/17 Exam Time: 1040 REPORT STATUS: Sig mabel PROCEDURE: A single AP view of the chest. COMPARISON: Portable est 09/07/2016. INDICATIONS: COUGH, CONGESTION, FEVER FINDINGS: Lines/tubes: None. Lungs: No focal consolidation. No parenchyma mass. Bibasilar atelectasis. Pleura: There is no pleural effusion or pneumot horax. Heart and mediastinum: The heart and the mediastinum are unremarka ble. Bones: No acute bony abnormality. Degenerative changes of the thorac ic spine. IMPRESSION: No acute radiographic abnormality. D ictated by: Rigoberto Billingsley M.D. on 05/27/2017 at 11:39 Electronically appr ras by: Rigoberto Billingsley M.D. on 05/27/2017 at 11:39 Dictated B y: RIGOBERTO BILLINGSLEY MD 1139 Tr anscribed By: SABAS on 05/27/17 1135 COPY TO: NELIA BISHOP MD
--- NOTE | 2019-11-06 19:25 | Emergency Department Note ---
History of Present Illnes History of Present Illness Chief Complaint: General Medicine Complaints History of Present Illness This is a 74 year old male who presents to the ED for evaluation of head injury after he slipped and fell onto the back of his head . 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 Any updates have been documented here. Past Medical History Recent Fever: No Clinical Suspicion of Infectio: No New/Unexplained Change in Ment: No Past Medical History: Hypertension, ESRD, Hemodyalisis Other Medical History: Colitis. UPPER GI BLEED PANCREATITIS SEPSIS HD MWF Other Surgery: HISTORY OF DIALYSIS CARDIAC CATH STENTS X3 Fistula Left arm Social History Smoking Cessation: Never Smoker Alcohol Use: None Any Illegal Drug Use: No Other Last Tetanus: UNKNOWN Review of Systems Review of Systems Constitutional: no symptoms EENTM: no symptoms Cardiovascular: no symptoms Respiratory: no symptoms Gastrointestinal: no symptoms Genitourinary: no symptoms Musculoskeletal: no symptoms Neurological: no symptoms Psychological: no symptoms Endocrine: no symptoms Hematological/Lymphatic: no symptoms Review of other systems All other systems reviewed and negative. Physical Exam Related Data Allergies: Coded Allergies: No Known Allergies (Unverified , 09/07/16) Triage Vital Signs Vital Signs Date Time Temp Pulse Resp B/P (MAP) Pulse Ox O2 Delivery O2 Flow Rate FiO2 11/06/19 19:00 97.9 70 16 162/78 95 Physical Exam CONSTITUTIONAL Constitutional: well-developed, well-nourished HENT HENT: normocephalic, atraumatic, oropharynx clear/moist, nose normal, other (cephalohematoma posterior head) HENT L/R: left ext ear normal, right ext ear normal EYES Eyes: PERRL, conjunctivae normal NECK Neck: ROM normal PULMONARY Pulmonary: effort normal, breath sounds normal CARDIOVASCULAR Cardiovascular: regular rhythm, heart sounds normal, capillary refill normal, normal rate GASTROINTESTINAL Abdominal: soft, nontender, bowel sounds normal GENITOURINARY Genitourinary: exam deferred SKIN Skin: warm, dry MUSCULOSKELETAL Musculoskeletal: ROM normal NEUROLOGICAL Neurological: alert, oriented x 3, no gross motor or sensory deficits PSYCHOLOGICAL Psychological: mood/affect normal, judgement normal Results Imaging Imaging results reviewed: Yes Impressions [place] [id number] Patient Name: TERRELL FELIZ MR #: [id number] : 1945 Age/Sex: 74/M Req #: [id number] Adm Physician: Ordered by: DILAN ROTH, OLIVER ROTH Report #: [id number] Location: ER Room/Bed: Procedure: [id number] CT/CT CERVICAL SPINE WO Exam Date: 11/06/19 Exam Time: 1933 REPORT STATUS: Signed Examination: CT CERVICAL SPINE WO CONTRAST HISTORY:Neck pain and injury after fall. COMPARISON:CT cervical spine dated November 12, 2013. TECHNIQUE: Multidetector helical axial images were obtained without contrast from the foramen magnum to T1. Coronal and sagittal reformatted images were done. Bone and soft tissue windows were evaluated. Dose modulation, iterative reconstruction, and/or weight based adjustment of the mA/kV was utilized to reduce the radiation dose to as low as reasonably achievable. FINDINGS: Alignment:Normal alignment and lordosis. Vertebrae: Normal height and density. No acute fracture, infection or neoplasm. Disc space heights: Normal height. Caliber of spinal canal: Developmentally normal. Posterior fossa and craniocervical junction: Foramen magnum patent. No Chiari 1 malformation. Soft tissues: No abnormality. Degenerative changes: No disc bulge/ herniation or foraminal or canal stenosis. Visualized lung apices: No abnormalities. IMPRESSION: No new or acute abnormalities when compared to prior cervical spine CT dated November 12, 2013. Signed by: Dr. Jaymie Hu M.D. on 11/06/2019 8:51 PM Dictated By: JAYMIE MCNEAL MD 50 Transcribed By: JERZY on 11/06/192050 COPY TO: OLIVER KONG~ [facility] [address] [place] [address] Patient Name: TERRELL FELIZ MR #: [id number] : 1945 Age/Sex: 74/M Req #: [id number] Adm Physician: Ordered by: OLIVER KONG MD, MD Report #: [id number] Location: ER Room/Bed: Procedure: [id number] CT/CT BRAIN WO Exam Date: 11/06/19 Exam Time: 1933 REPORT STATUS: Signed Examination: CT head without contrast Clinical Indication: Fall with head injury. Technique: Transaxial noncontrast images from the skull base through the vertex were obtained. Sagittal and coronal reformatted images were done. Dose modulation, iterative reconstruction, and/or weight based adjustment of the mA/kV was utilized to reduce the radiation dose to as low as reasonably achievable. Comparison: Head CT dated November 12, 2013. Findings: Scalp: No abnormalities. Bones: Intact. No fractures. No blastic or lytic lesions. Brain sulci: Generalized volume loss for patient's age. Ventricles: No hydrocephalus. Extra-axial space: No abnormalities. Parenchyma: There are new patchy areas of low-attenuation within subcortical and periventricular white matter, nonspecific, but could represent microvascular ischemic disease. No masses, hemorrhage, or acute or chronic cortical based vascular insults. Suprasellar region: No abnormalities. Craniocervical junction: The foramen magnum is patent. No Chiari one malformation. Impression: 1. No acute intracranial finding when compared to prior head CT dated 11/12/2013. 2. New chronic microvascular ischemic change and generalized volume loss. Signed by: Dr. Jaymie Hu M.D. on 11/06/2019 8:44 PM Dictated By: JAYMIE MCNEAL MD 43 Transcribed By: JERZY on 11/06/192043 COPY TO: OLIVER KONG~ Assessment & Plan Assessment & Plan Final Impression: (1) Head injury Assessment & Plan Patient seen at bedside AO x 3, CTS reviewed. Plan to discharge back to CT Depart Disposition: HOME, SELF-CARE Last Vital Signs Date Time Temp Pulse Resp B/P (MAP) Pulse Ox O2 Delivery O2 Flow Rate FiO2 11/07/19 01:05 98.2 92 16 152/89 97 Date Time Temp Pulse Resp B/P (MAP) Pulse Ox O2 Delivery O2 Flow Rate FiO2 11/06/19 19:00 97.9 70 16 162/78 95 Home Meds Active Scripts Pantoprazole Sod (PROTONIX) 40 Mg/Ml Susp, 40 MG PO DAILY@0600 for 30 Days Prov:JULITA SNOW KNOBBER 10/19/19 Reported Medications Famotidine (FAMOTIDINE) 20 Mg Tab, 20 MG PO BID, #30 TAB 10/08/19 Naproxen (NAPROXEN) 250 Mg Tablet, 500 MG PO BID, TAB 10/08/19 Midodrine Hcl (MIDODRINE HCL) 5 Mg Tablet, 10 MG PO TID, TAB 10/08/19 Hydroxyzine Pamoate (HYDROXYZINE PAMOATE) 25 Mg Capsule, 1 TAB PO TID 10/08/19 Tamsulosin Hcl (TAMSULOSIN HCL) 0.4 Mg Cap.er.24h, 0.4 MG PO BID 09/07/16 Furosemide (FUROSEMIDE) 40 Mg Tablet, 80 MG PO Daily, #30 TAB 09/07/16 Ropinirole Hcl (REQUIP) 0.5 Mg Tab, 5 MG PO TID 05/24/12 Pravastatin Sodium (Pravastatin Sodium) 40 Mg Tablet, 40 MG PO HS 08/12/11 ALYX HARRELL 8, 2020 19:25
--- NOTE | 2019-11-06 20:47 | Diagnostic Imaging Report ---
Examination: CT head without contrast Clinical Indication: Fall with head injury. Technique: Transaxial noncontrast images from the skull base through the vertex were obtained. Sagittal and coronal reformatted images were done. Dose modulation, iterative reconstruction, and/or weight based adjustment of the mA/kV was utilized to reduce the radiation dose to as low as reasonably achievable. Comparison: Head CT dated November 12, 2013. Findings: Scalp: No abnormalities. Bones: Intact. No fractures. No blastic or lytic lesions. Brain sulci: Generalized volume loss for patient's age. Ventricles: No hydrocephalus. Extra-axial space: No abnormalities. Parenchyma: There are new patchy areas of low-attenuation within subcortical and periventricular white matter, nonspecific, but could represent microvascular ischemic disease. No masses, hemorrhage, or acute or chronic cortical based vascular insults. Suprasellar region: No abnormalities. Craniocervical junction: The foramen magnum is patent. No Chiari one malformation. Impression: 1. No acute intracranial finding when compared to prior head CT dated 11/12/2013. 2. New chronic microvascular ischemic change and generalized volume loss. Signed by: Dr. Jaymie Hu M.D. on 11/06/2019 8:44 PM
--- NOTE | 2019-11-06 20:54 | Diagnostic Imaging Report ---
Examination: CT CERVICAL SPINE WO CONTRAST HISTORY:Neck pain and injury after fall. COMPARISON:CT cervical spine dated November 12, 2013. TECHNIQUE: Multidetector helical axial images were obtained without contrast from the foramen magnum to T1. Coronal and sagittal reformatted images were done. Bone and soft tissue windows were evaluated. Dose modulation, iterative reconstruction, and/or weight based adjustment of the mA/kV was utilized to reduce the radiation dose to as low as reasonably achievable. FINDINGS: Alignment:Normal alignment and lordosis. Vertebrae: Normal height and density. No acute fracture, infection or neoplasm. Disc space heights: Normal height. Caliber of spinal canal: Developmentally normal. Posterior fossa and craniocervical junction: Foramen magnum patent. No Chiari 1 malformation. Soft tissues: No abnormality. Degenerative changes: No disc bulge/ herniation or foraminal or canal stenosis. Visualized lung apices: No abnormalities. IMPRESSION: No new or acute abnormalities when compared to prior cervical spine CT dated November 12, 2013. Signed by: Dr. Jaymie Hu M.D. on 11/06/2019 8:51 PM
== END 2019-11-07 01:20 | disposition home or self-care (01) ==
LOC: ER 19:11
DX: S00.83XA Contusion of other part of head, initial encounter (principal); W01.0XXA Fall on same level from slipping, tripping and stumbling without subsequent striking against object, initial encounter; I12.0 Hypertensive chronic kidney disease with stage 5 chronic kidney disease or end stage renal disease; N18.6 End stage renal disease; Z99.2 Dependence on renal dialysis; Z87.19 Personal history of other diseases of the digestive system
CPT/HCPCS: 70450; 72125; 99283